=== PATIENT | female | born 1985 | race Caucasian/White ===

== ENCOUNTER 2016-11-16 18:39 | Emergency (ER) | payer MEDICARE, MEDICAID ==
[2016-11-16 18:49] VITALS: BP 155/84
[2016-11-16] MEDS ORDERED: Sodium Chloride 0.9% 10 ML Syringe FLUSH PRN (19:11)
[2016-11-16] MEDS ORDERED: Sodium Chloride 0.9% 1,000 ML IV ONE (19:11)
[2016-11-16] MEDS ORDERED: Albuterol 0.083% 2.5 MG/3 ML Neb Soln NEB ONE (19:11)
--- NOTE | 2016-11-16 20:06 | EDM.PDOC ---
ED HPI GENERAL MEDICAL PROBLEM - General Chief Complaint: Respiratory Problem Stated Complaint: SOB Time Seen by Provider: 11/16/16 20:02 Source of Information: Reports: Patient History Limitations: Reports: No Limitations - History of Present Illness INITIAL COMMENTS - FREE TEXT/NARRATIVE: 31-year-old female presents for evaluation and treatment of dizziness. Patient reports that she was at work earlier today. 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 She states after picking up the dishes she became very lightheaded and dizzy upon standing. She states later she attempted to tie her shoes but did not experience any dizziness at that time. She currently denies any dizziness but feels that if she were to get up she would experience some dizziness. Patient denies any syncope, nausea or vomiting. Patient reports she has been eating and drinking well. Nursing staff noticed that the patient had heavy breathing on arrival to the ER. She reports shortness of breath but states that this is no worse than normal. She was recently diagnosed with asthma and has been using symbicort and albuterol as needed. Last albuterol use was on . Patient denies any chest pain, fevers, sore throat, earaches. Patient does have a little bit of cough. Patient presented to the [facility] who was sent over to us due to her breathing. No leg pain or swelling to the legs. No recent travel. Patient denies any chance of . - Related Data Allergies Allergy/AdvReac Type Severity Reaction Status Date / Time cephalexin monohydrate Allergy Rash Verified 07/23/16 22:53 [From Keflex] doxycycline Allergy Rash Verified 07/23/16 22:53 levofloxacin [From Levaquin] Allergy Rash Verified 07/23/16 22:53 metronidazole [From Flagyl] Allergy Rash Verified 07/23/16 22:53 sulfamethoxazole Allergy Rash Verified 07/23/16 22:53 [From Septra] trimethoprim [From Septra] Allergy Rash Verified 07/23/16 22:53 Home Meds: Home Meds Esomeprazole Magnesium [Nexium] 40 mg PO DAILY 04/18/15 [History] [place] Carbonate 600 mg PO BID 04/18/15 [History] QUEtiapine [SEROquel] 400 mg PO BEDTIME 04/18/15 [History] Albuterol Sulfate [Proventil Hfa] 2 puff INH Q4H PRN 11/16/16 [History] Budesonide/Formoterol Fumarate [Symbicort 160-4.5 Mcg Inhaler] 2 puff INH BID [History] Losartan [Cozaar] 25 mg PO DAILY 11/16/16 [History] Montelukast [Singulair] 10 mg PO BEDTIME 11/16/16 [History] amLODIPine [Norvasc] 10 mg PO DAILY 11/16/16 [History] Past Medical History Cardiovascular History: Reports: Hypertension Gastrointestinal History: Reports: GERD Other OB/BYN History: on the Depo shot Musculoskeletal History: Reports: Arthritis Psychiatric History: Reports: Bipolar, Depression Endocrine/Metabolic History: Reports: Obesity/BMI 30+, Other (See Below) Oncologic (Cancer) History: Reports: Other (See Below) Other Oncologic History: anemia - Past Surgical History HEENT Surgical History: Reports: Oral Surgery, Tonsillectomy Social & Family History - Tobacco Use Smoking Status *Q: Former Smoker Used Tobacco, but Quit: Yes Month Tobacco Last Used: 8 years - Caffeine Use Caffeine Use: Reports: Tea - Recreational Drug Use Recreational Drug Use: No - Living Situation & Occupation Living situation: Reports: Single, Alone Occupation: Unemployed ED ROS GENERAL - Review of Systems Review Of Systems: See Below Constitutional: Denies: Fever HEENT: Denies: Ear Pain, Throat Pain Respiratory: Reports: Shortness of Breath (reports chronic, no worse than normal ), Cough Cardiovascular: Denies: Chest Pain GI/Abdominal: Denies: Nausea, Vomiting Neurological: Reports: Dizziness ED EXAM, GENERAL - Physical Exam Exam: See Below Exam Limited By: No Limitations General Appearance: Alert, WD/WN, No Apparent Distress, Obese Eye Exam: Bilateral Eye: PERRL Ears: Normal External Exam, Normal Canal, Hearing Grossly Normal, Normal TMs Nose: Normal Inspection Throat/Mouth: Normal Inspection, Normal Lips, Normal Voice, No Airway Compromise Neck: Normal Inspection Respiratory/Chest: No Respiratory Distress, No Accessory Muscle Use, Wheezing ( bilateral lower lung malone), Other (congested sounding ) Cardiovascular: Normal Peripheral Pulses, Regular Rate, Rhythm, No Murmur Peripheral Pulses: 2+: Radial (L), Radial (R) Neurological: Alert, Oriented, Normal Cognition Psychiatric: Normal Affect, Normal Mood Skin Exam: Warm, Dry, Normal Color Course - Vital Signs Last Recorded V/S: Last Vital Signs Temp 36.7 C 11/16/16 18:48 Pulse 93 11/16/16 18:48 Resp 20 11/16/16 18:48 BP 155/84 H 11/16/16 18:48 Pulse Ox 100 11/16/16 19:19 Orthostatic Blood Pressure [ 140/84 Standing] Orthostatic Blood Pressure [ 155/94 Sitting] Orthostatic Blood Pressure [ 141/86 Supine] - Orders/Labs/Meds Orders: Active Orders 24 hr Category Date Time Status Orthostatic Vital Signs [RC] ASDIRECTED Care 11/16/16 19:11 Active Peripheral IV Care [RC] . DIRECTED Care 11/16/16 19:11 Active RT Aerosol Therapy [RC] ASDIRECTED Care 11/16/16 19:12 Active Chest 2V [CR] Stat Exams 11/16/16 19:12 Taken Sodium Chloride 0.9% [Saline Flush] Med 11/16/16 19:11 Active 10 ml FLUSH ASDIRECTED PRN Peripheral IV Insertion Adult [OM.PC] Routine Oth 11/16/16 19:11 Ordered Medication Orders Sodium Chloride (Saline Flush) 10 ml FLUSH ASDIRECTED PRN PRN Reason: Keep Vein Open Last Admin: 11/16/16 19:27 Dose: 10 ml Labs: Laboratory Tests 11/16/16 11/16/16 Range/Units 19:20 19:20 WBC 15.20 H (3.98-10.04) K/mm3 RBC 4.54 (3.98-5.22) M/mm3 Hgb 12.1 (11.2-15.7) gm/L Hct 38.0 (34.1-44.9) % MCV 83.7 (79.4-94.8) fl MCH 26.7 (25.6-32.2) pg MCHC 31.8 L (32.2-35.5) g/dl RDW Std Deviation 44.1 (36.4-46.3) fL Plt Count 437 H (182-369) K/mm3 MPV 8.7 L (9.4-12.3) fl Neut % (Auto) 62.0 (34.0-71.1) % Lymph % (Auto) 26.2 (19.3-51.7) % Teller % (Auto) 7.7 (4.7-12.5) % Eos % (Auto) 3.0 (0.7-5.8) Baso % (Auto) 0.5 (0.1-1.2) % Neut # (Auto) 9.43 H (1.56-6.13) K/mm3 Lymph # (Auto) 3.98 H (1.18-3.74) K/mm3 Teller # (Auto) 1.17 H (0.24-0.36) K/mm3 Eos # (Auto) 0.46 H (0.04-0.36) K/mm3 Baso # (Auto) 0.07 (0.01-0.08) K/mm3 Sodium 141 (136-145) mEq/L Potassium 3.6 (3.5-5.1) mEq/L Chloride 105 (98-107) mEq/L Carbon Dioxide 27 (21-32) mEq/L Anion Gap 12.6 (5-15) BUN 6 L (7-18) mg/dL Creatinine 0.9 (0.55-1.02) mg/dL Est Cr Clr Drug Dosing 91.36 mL/min Estimated GFR (MDRD) > 60 (>60) mL/min BUN/Creatinine Ratio 6.7 L (14-18) Glucose 95 (74-106) mg/dL Calcium 9.0 (8.5-10.1) mg/dL Total Bilirubin 0.4 (0.2-1.0) mg/dL AST 12 L (15-37) U/L ALT 33 (14-59) U/L Alkaline Phosphatase 97 (46-116) U/L Total Protein 7.1 (6.4-8.2) g/dl Albumin 3.5 (3.4-5.0) g/dl Globulin 3.6 gm/dL Albumin/Globulin Ratio 1.0 (1-2) Meds: Medications Generic Name Dose Route Start Last Admin Trade Name Freq PRN Reason Stop Dose Admin Sodium Chloride 10 ml 11/16/16 19:11 11/16/16 19:27 Saline Flush FLUSH 10 ml ASDIRECTED PRN Administration Keep Vein Open Discontinued Medications Generic Name Dose Route Start Last Admin Trade Name Freq PRN Reason Stop Dose Admin Albuterol 2.5 mg 11/16/16 19:11 11/16/16 19:18 Proventil Neb Soln NEB 11/16/16 19:12 2.5 mg ONETIME ONE Administration Sodium Chloride 1,000 mls @ 999 mls/hr 11/16/16 19:11 11/16/16 19:27 Normal Saline IV 11/16/16 20:11 999 mls/hr ONETIME ONE Administration - Radiology Interpretation Free Text/Narrative:: chest 2 view shows no acute intrathoracic process. - Re-Assessments/Exams Free Text/Narrative Re-Assessment/Exam: 11/16/16 20:34 Labs have returned. White blood cell count is 15.20, hemoglobin 12.1 and platelets are 437. On review of patient's chart, Her previous white blood cell counts have also been high. Of note she is also on Symbicort. Sodium 141 potassium 3.6 and chloride 105. Anion gap of 12.6. Orthostatics were unremarkable. Reviewed the labs and chest x-ray with the patient. I feel that her dizziness she experienced earlier was likely due to a lack of blood flow from her sudden movements. I do not see any further testing at this time. Her wheezing has improved after the nebulizer treatment. Discharge instructions as documented. Departure - Departure Time of Disposition: 20:42 Disposition: Home, Self-Care 01 Condition: good Clinical Impression: Positional lightheadedness - Discharge Information Referrals: Sue Vera PA-C [Primary Care Provider] - Forms: ED Department Discharge, Return to Work/School Form Additional Instructions: Rest. Drink plenty of fluids. Follow-up with PCP as needed. Go slowly when getting up or standing up to avoid this in the future. Please return to the ER should your symptoms change or worsen. - My Orders Last 24 Hours: My Active Orders 11/16/16 19:11 Orthostatic Vital Signs [RC] ASDIRECTED Peripheral IV Care [RC] . DIRECTED Sodium Chloride 0.9% [Saline Flush] 10 ml FLUSH ASDIRECTED PRN Peripheral IV Insertion Adult [OM.PC] Routine 11/16/16 19:12 RT Aerosol Therapy [RC] ASDIRECTED Chest 2V [CR] Stat - Assessment/Plan Last 24 Hours: My Active Orders 11/16/16 19:11 Orthostatic Vital Signs [RC] ASDIRECTED Peripheral IV Care [RC] . DIRECTED Sodium Chloride 0.9% [Saline Flush] 10 ml FLUSH ASDIRECTED PRN Peripheral IV Insertion Adult [OM.PC] Routine 11/16/16 19:12 RT Aerosol Therapy [RC] ASDIRECTED Chest 2V [CR] Stat
--- NOTE | 2016-11-17 06:18 | CR ---
Chest: 2 views of the chest were obtained. Comparison: No previous chest x-ray. Heart size and mediastinum are within normal limits. Trachea is slightly deviated to the left side within the neck possibly due to enlarged thyroid gland. Lungs are clear. Bony structures are within normal limits for the patient's age. Impression: 1. Trachea deviated to the left side. Difficult to exclude enlarged thyroid gland. Please correlate with physical exam and if clinically needed thyroid ultrasound would be helpful. 2. Nothing acute is otherwise seen on 2 view chest x-ray. Diagnostic code #9
== END 2016-11-16 20:57 | disposition home or self-care (01) ==
LOC: SUPCPDRO 18:39 → JD.ED 18:39
DX: R42 Dizziness and giddiness (principal); I10 Essential (primary) hypertension; M19.90 Unspecified osteoarthritis, unspecified site; K21.9 Gastro-esophageal reflux disease without esophagitis; F31.9 Bipolar disorder, unspecified; E66.9 Obesity, unspecified; Z98.890 Other specified postprocedural states; Z87.891 Personal history of nicotine dependence; Z79.899 Other long term (current) drug therapy; Z88.1 Allergy status to other antibiotic agents
CPT/HCPCS: 36415; 71020; 80053; 85025; 94664; 96360; 99285; J7040; J7050; 99283

== ENCOUNTER 2017-05-03 13:37 | Emergency (ER) | payer MEDICARE, MEDICAID ==
[2017-05-03] MEDS ORDERED: Lactated Ringers 1,000 ML IV ONE (14:10)
--- NOTE | 2017-05-03 14:10 | EDM.PDOC ---
ED HPI GENERAL MEDICAL PROBLEM - General Chief Complaint: Neurological Problem Stated Complaint: DIZZINESS Time Seen by Provider: 05/03/17 13:58 - History of Present Illness INITIAL COMMENTS - FREE TEXT/NARRATIVE: 31-year-old female presents emergency room with dizziness. Patient states this started about a week and a half ago when she was started on Topamax. Patient was recently started on this as additional therapy for her bipolar illness. She is already on lithium. Patient states she's been drinking a lot of caffeinated beverages a lot of soda pop. Patient notices the dizziness mostly with change of position. This is not associated with any nausea vomiting or diarrhea. Patient has not had any burning or frequency with urination. Patient denies any fevers or chills and otherwise has no pain. - Related Data Allergies Allergy/AdvReac Type Severity Reaction Status Date / Time cephalexin monohydrate Allergy Rash Verified 07/23/16 22:53 [From Keflex] doxycycline Allergy Rash Verified 07/23/16 22:53 levofloxacin [From Levaquin] Allergy Rash Verified 07/23/16 22:53 metronidazole [From Flagyl] Allergy Rash Verified 07/23/16 22:53 sulfamethoxazole Allergy Rash Verified 07/23/16 22:53 [From Septra] trimethoprim [From Septra] Allergy Rash Verified 07/23/16 22:53 Home Meds: Home Meds Esomeprazole Magnesium [Nexium] 40 mg PO DAILY 04/18/15 [History] [place] Carbonate 600 mg PO BID 04/18/15 [History] QUEtiapine [SEROquel] 400 mg PO BEDTIME 04/18/15 [History] Albuterol Sulfate [Proventil Hfa] 2 puff INH Q4H PRN 11/16/16 [History] Budesonide/Formoterol Fumarate [Symbicort 160-4.5 Mcg Inhaler] 2 puff INH BID [History] Losartan [Cozaar] 25 mg PO DAILY 11/16/16 [History] Montelukast [Singulair] 10 mg PO BEDTIME 11/16/16 [History] amLODIPine [Norvasc] 10 mg PO DAILY 11/16/16 [History] Topiramate [Topamax] 10 mg PO DAILY 05/03/17 [History] Past Medical History Cardiovascular History: Reports: Hypertension Gastrointestinal History: Reports: GERD Other OB/BYN History: on the Depo shot Musculoskeletal History: Reports: Arthritis Psychiatric History: Reports: Bipolar, Depression Endocrine/Metabolic History: Reports: Obesity/BMI 30+, Other (See Below) Oncologic (Cancer) History: Reports: Other (See Below) Other Oncologic History: anemia - Past Surgical History HEENT Surgical History: Reports: Oral Surgery, Tonsillectomy Social & Family History - Tobacco Use Smoking Status *Q: Former Smoker Used Tobacco, but Quit: Yes Month Tobacco Last Used: 8 yrs - Caffeine Use Caffeine Use: Reports: Soda Other Caffeine Use: diet - Recreational Drug Use Recreational Drug Use: No - Living Situation & Occupation Living situation: Reports: Single, Alone Occupation: Unemployed ED ROS GENERAL - Review of Systems Review Of Systems: See Below Constitutional: Reports: No Symptoms HEENT: Reports: No Symptoms Respiratory: Reports: No Symptoms Cardiovascular: Reports: No Symptoms GI/Abdominal: Reports: Constipation : Reports: No Symptoms Neurological: Reports: Dizziness. Denies: No Symptoms, Headache ED EXAM, NEURO - Physical Exam Exam: See Below Exam Limited By: No Limitations General Appearance: Alert, No Apparent Distress Ears: Normal External Exam, Normal Canal, Hearing Grossly Normal, Normal TMs Nose: Normal Inspection, Normal Mucosa Throat/Mouth: Normal Inspection, Normal Lips, Normal Teeth, Normal Gums, Normal Oropharynx, Normal Voice, No Airway Compromise Head Exam: Atraumatic, Normocephalic Neck: Normal Inspection, Supple, Non-Tender, Full Range of Motion. No: Lymphadenopathy (L), Lymphadenopathy (R) Respiratory/Chest: No Respiratory Distress, Lungs Clear, Normal Breath Sounds Cardiovascular: Regular Rate, Rhythm, No Edema, No Murmur GI/Abdominal: Normal Bowel Sounds, Soft, Non-Tender Neurological: Alert, Normal Mood/Affect, Normal Dorsiflexion, CN II-XII Intact, No Motor/Sensory Deficits Course - Vital Signs Last Recorded V/S: Last Vital Signs Temp 36.4 C 05/03/17 13:48 Pulse 102 H 05/03/17 13:48 Resp 20 05/03/17 13:48 BP 117/86 05/03/17 13:48 Pulse Ox 100 05/03/17 13:48 - Orders/Labs/Meds Orders: Active Orders 24 hr Category Date Time Status LITHIUM [REF] Stat Lab 05/03/17 14:11 Ordered Labs: Laboratory Tests 05/03/17 Range/Units 14:11 Sodium 138 (136-145) mEq/L Potassium 3.4 L (3.5-5.1) mEq/L Chloride 103 (98-107) mEq/L Carbon Dioxide 24 (21-32) mEq/L Anion Gap 14.4 (5-15) BUN 11 (7-18) mg/dL Creatinine 0.9 (0.55-1.02) mg/dL Est Cr Clr Drug Dosing 94.65 mL/min Estimated GFR (MDRD) > 60 (>60) mL/min BUN/Creatinine Ratio 12.2 L (14-18) Glucose 99 (74-106) mg/dL Calcium 9.9 (8.5-10.1) mg/dL Meds: Medications Discontinued Medications Generic Name Dose Route Start Last Admin Trade Name Benjamin PRN Reason Stop Dose Admin Lactated Ringer's 1,000 mls @ 999 mls/hr 05/03/17 14:10 05/03/17 15:15 Ringers, Lactated IV 05/03/17 15:10 999 mls/hr .BOLUS ONE Administration - Re-Assessments/Exams Free Text/Narrative Re-Assessment/Exam: 05/03/17 16:13 [place] level pending patient is feeling much better after IV fluids patient will be discharged after this liter fluid has running completely. Discussed in detail her getting rid of her caffeinated beverages and see if this helps she seems to correlate his dizziness was starting the Topamax she agrees to follow- up with her regular provider and discuss the benefits of continuing versus discontinuing the Topamax Departure - Departure Time of Disposition: 16:09 Disposition: Home, Self-Care 01 Clinical Impression: Dizziness, Dehydration - Discharge Information Referrals: Sue Vera PA-C [Primary Care Provider] - Forms: ED Department Discharge Additional Instructions: Return to the emergency room with any questions problems worsening symptoms. Follow-up he regular provider early next week for follow-up on your pending lithium level discuss Topamax therapy and if this should be continued. Discontinue caffeinated beverages and soda pop push lots of fluids such as water. - My Orders Last 24 Hours: My Active Orders 05/03/17 14:11 LITHIUM [REF] Stat - Assessment/Plan Last 24 Hours: My Active Orders 05/03/17 14:11 LITHIUM [REF] Stat
[2017-05-03 16:26] VITALS: BP 141/85
== END 2017-05-03 16:25 | disposition home or self-care (01) ==
LOC: JD.ED 13:37
DX: E86.0 Dehydration (principal); K21.9 Gastro-esophageal reflux disease without esophagitis; I10 Essential (primary) hypertension; F32.9 Major depressive disorder, single episode, unspecified; Z87.891 Personal history of nicotine dependence; Z79.899 Other long term (current) drug therapy; Z88.1 Allergy status to other antibiotic agents; Z88.2 Allergy status to sulfonamides
CPT/HCPCS: 36415; 80048; 80178; 96360; 99284; J7120; 99283

== ENCOUNTER 2017-08-29 21:25 | Emergency (ER) | payer MEDICARE, MEDICAID ==
--- NOTE | 2017-08-29 22:41 | EDM.PDOC ---
ED HPI GENERAL MEDICAL PROBLEM - General Chief Complaint: Neck Problem Stated Complaint: THYROID TAKEN OUT TUESDAY TINGLING ON FACE Time Seen by Provider: 08/29/17 21:37 Source of Information: Reports: Patient History Limitations: Reports: No Limitations - History of Present Illness INITIAL COMMENTS - FREE TEXT/NARRATIVE: 32 y/o F with perioral tingling. Started about 3 hours ago while at rest. She had thyroidectomy 1 week ago at [facility] in [place]. She is on levothyroxine. Compliant with mesd. Started having perioral tingling and came in for eval of this. No additional paresthesias. Otherwise feels fine. Minimal neck pain. No fever. No cough/shortness of breath. No vomiting or diarrhea or abdominal pain. - Related Data Allergies Allergy/AdvReac Type Severity Reaction Status Date / Time cephalexin monohydrate Allergy Rash Verified 08/29/17 21:42 [From Keflex] doxycycline Allergy Rash Verified 08/29/17 21:42 levofloxacin [From Levaquin] Allergy Rash Verified 08/29/17 21:42 metronidazole [From Flagyl] Allergy Rash Verified 08/29/17 21:42 sulfamethoxazole Allergy Rash Verified 08/29/17 21:42 [From Septra] trimethoprim [From Septra] Allergy Rash Verified 08/29/17 21:42 Home Meds: Home Meds Esomeprazole Magnesium [Nexium] 40 mg PO DAILY 04/18/15 [History] [place] Carbonate 600 mg PO BID 04/18/15 [History] QUEtiapine [SEROquel] 400 mg PO BEDTIME 04/18/15 [History] Losartan [Cozaar] 50 mg PO DAILY 11/16/16 [History] amLODIPine [Norvasc] 10 mg PO DAILY 11/16/16 [History] Topiramate [Topamax] 100 mg PO DAILY 05/03/17 [History] Acetaminophen/HYDROcodone [[place] 325-5 MG] 1 tab PO ASDIRECTED 08/29/17 [History ] Etonogestrel [Nexplanon] 68 mg SQ ASDIRECTED 08/29/17 [History] Famotidine [Pepcid] 20 mg PO BEDTIME 08/29/17 [History] Levothyroxine 150 mcg PO DAILY 08/29/17 [History] Past Medical History Cardiovascular History: Reports: Hypertension Gastrointestinal History: Reports: GERD Other OB/BYN History: on the Depo shot Musculoskeletal History: Reports: Arthritis Psychiatric History: Reports: Bipolar, Depression Endocrine/Metabolic History: Reports: Hypothyroidism, Obesity/BMI 30+, Other ( See Below) Oncologic (Cancer) History: Reports: Other (See Below) Other Oncologic History: anemia - Past Surgical History HEENT Surgical History: Reports: Oral Surgery, Tonsillectomy Endocrine Surgical History: Reports: Thyroidectomy Social & Family History - Tobacco Use Smoking Status *Q: Never Smoker Used Tobacco, but Quit: Yes Month/Year Tobacco Last Used: 8 yrs - Caffeine Use Caffeine Use: Reports: Soda Other Caffeine Use: diet - Recreational Drug Use Recreational Drug Use: No - Living Situation & Occupation Living situation: Reports: Single, Alone Occupation: Unemployed ED ROS GENERAL - Review of Systems Review Of Systems: See Below Constitutional: Denies: Fever HEENT: Reports: No Symptoms Respiratory: Denies: Shortness of Breath Cardiovascular: Denies: Chest Pain GI/Abdominal: Denies: Abdominal Pain : Reports: No Symptoms Neurological: Reports: Paresthesia, Tingling. Denies: Weakness ED EXAM, UPPER BACK/NECK PAIN - Physical Exam Exam: See Below Exam Limited By: No Limitations General Appearance: Alert, WD/WN, No Apparent Distress Eye Exam: Bilateral Eye: Normal Inspection, PERRL Ears Exam: Normal External Exam Nose Exam: Normal Inspection Throat/Mouth Exam: Normal Inspection, Normal Voice, No Airway Compromise Head Exam: Atraumatic, Normocephalic Neck Exam: Full Range of Motion, Other (lower anterior neck incision is clean/ dry/intact. minimal surrounding erythema and tenderness. no fluctuance. 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 As Tested, No Motor/Sensory Deficits, Alert, Normal Mood/Affect, Oriented x 3 Psychiatric: Normal Affect, Normal Mood Skin Exam: Normal Color, Warm/Dry Course - Vital Signs Last Recorded V/S: Last Vital Signs Temp 36.1 C 08/29/17 22:01 Pulse 84 08/30/17 00:04 Resp 20 08/29/17 22:01 BP 139/100 H 08/30/17 00:04 Pulse Ox 100 08/29/17 22:01 - Orders/Labs/Meds Orders: Active Orders 24 hr Category Date Time Status CALCIUM, IONIZED [REF] Stat Lab 08/29/17 22:40 Received LITHIUM [REF] Stat Lab 08/29/17 22:40 Received Labs: Laboratory Tests 08/29/17 Range/Units 22:40 Sodium 137 (136-145) mEq/L Potassium 3.2 L (3.5-5.1) mEq/L Chloride 102 (98-107) mEq/L Carbon Dioxide 23 (21-32) mEq/L Anion Gap 15.2 H (5-15) BUN 5 L (7-18) mg/dL Creatinine 1.1 H (0.55-1.02) mg/dL Est Cr Clr Drug Dosing 19.98 mL/min Estimated GFR (MDRD) 58 (>60) mL/min BUN/Creatinine Ratio 4.5 L (14-18) Glucose 103 (74-106) mg/dL Calcium 8.8 (8.5-10.1) mg/dL Magnesium 1.9 (1.8-2.4) mg/dl Total Bilirubin 0.3 (0.2-1.0) mg/dL AST 18 (15-37) U/L ALT 65 H (14-59) U/L Alkaline Phosphatase 124 H (46-116) U/L Total Protein 7.6 (6.4-8.2) g/dl Albumin 3.4 (3.4-5.0) g/dl Globulin 4.2 gm/dL Albumin/Globulin Ratio 0.8 L (1-2) Free T4 0.76 (0.76-1.46) ng/dL TSH 3rd Generation 9.063 H (0.358-3.74) uIU/mL Meds: Medications Discontinued Medications Generic Name Dose Route Start Last Admin Trade Name Freq PRN Reason Stop Dose Admin Potassium Chloride 40 meq 08/29/17 23:55 08/30/17 00:09 Klor-Con M20 PO 08/29/17 23:56 40 meq ONETIME ONE Administration - Re-Assessments/Exams Free Text/Narrative Re-Assessment/Exam: 08/30/17 00:23 Total calcium is normal at 8.8. Ionized calcium pending, but lab notifies us that it will take some time for this to return. K+ mildly low at 3.2, replaced orally. TSH high but free T4 normal. She has follow up with her surgeon scheduled for 3 days from now. Other than bilateral face numbness, she has no additional paresthesias or neurological symptoms. Given benign exam and reassuring labs will discharge home. Acequia level still pending as well - patient should receive a phone call if this is significantly abnormal. Departure - Departure Time of Disposition: 00:16 Disposition: Home, Self-Care 01 Clinical Impression: Paresthesias - Discharge Information Instructions: Paresthesia Referrals: Angie Gleason NP [Primary Care Provider] - Forms: ED Department Discharge Additional Instructions: 1. Your blood work here today looks OK. Your calcium is normal. Your thyroid studies look ok. 2. Follow up with your regular doctor if numbness/tingling continues. 3. Follow up with your surgeon as planned 4. Return to the ED for any new concerning symptoms, such as worsening numbness /tingling symptoms or other concerning symptoms - My Orders Last 24 Hours: My Active Orders 08/29/17 22:40 CALCIUM, IONIZED [REF] Stat LITHIUM [REF] Stat - Assessment/Plan Last 24 Hours: My Active Orders 08/29/17 22:40 CALCIUM, IONIZED [REF] Stat LITHIUM [REF] Stat
[2017-08-29] MEDS ORDERED: Potassium Chloride 20 MEQ Tab.ER PO ONE (23:55)
[2017-08-30 00:04] VITALS: BP 139/100
== END 2017-08-30 00:24 | disposition home or self-care (01) ==
LOC: JD.ED 21:25
DX: R20.2 Paresthesia of skin (principal); I10 Essential (primary) hypertension; E03.9 Hypothyroidism, unspecified; Z88.1 Allergy status to other antibiotic agents; Z88.2 Allergy status to sulfonamides; Z79.899 Other long term (current) drug therapy; Z87.891 Personal history of nicotine dependence
CPT/HCPCS: 36415; 80053; 80178; 82330; 83735; 84439; 84443; 99284; A9270; 99283

== ENCOUNTER 2017-10-09 19:36 | Emergency (ER) | payer MEDICARE, MEDICAID ==
[2017-10-09 19:52] VITALS: BP 138/101
[2017-10-09] MEDS ORDERED: Sodium Chloride 0.9% 1,000 ML IV ONE (20:16)
[2017-10-09] MEDS ORDERED: Sodium Chloride 0.9% 10 ML Syringe FLUSH PRN (20:16)
--- NOTE | 2017-10-09 21:06 | EDM.PDOC ---
ED HPI GENERAL MEDICAL PROBLEM - General Chief Complaint: Neurological Problem Stated Complaint: DIZZY Time Seen by Provider: 10/09/17 20:13 Source of Information: Reports: Patient History Limitations: Reports: No Limitations - History of Present Illness INITIAL COMMENTS - FREE TEXT/NARRATIVE: 32-year-old female presents for evaluation and treatment of dizziness and fatigue. Patient reports that the dizziness started earlier this afternoon. At that time she was watching TV. Reports that she is only experiencing the dizziness when she is getting up. No current dizziness. No recent cough or cold symptoms. No ear pain, headaches, nausea, vomiting, numbness or tingling. She also reports increased fatigue. States that she dozed off after eating lunch this morning. This sounds more of a chronic issue. She is scheduled to have a sleep study November 01. She's had 2 sleep studies in the past which she reports were normal. Patient also states that she has numbness and tingling to her face that she occasionally gets from low potassium. She does not have any of this today. Her primary care provider is Angie Gleason. - Related Data Allergies Allergy/AdvReac Type Severity Reaction Status Date / Time cephalexin monohydrate Allergy Rash Verified 10/09/17 19:52 [From Keflex] doxycycline Allergy Rash Verified 10/09/17 19:52 levofloxacin [From Levaquin] Allergy Rash Verified 10/09/17 19:52 metronidazole [From Flagyl] Allergy Rash Verified 10/09/17 19:52 sulfamethoxazole Allergy Rash Verified 10/09/17 19:52 [From Septra] trimethoprim [From Septra] Allergy Rash Verified 10/09/17 19:52 Home Meds: Home Meds Esomeprazole Magnesium [Nexium] 40 mg PO DAILY 04/18/15 [History] [place] Carbonate 600 mg PO BID 04/18/15 [History] QUEtiapine [SEROquel] 400 mg PO BEDTIME 04/18/15 [History] Losartan [Cozaar] 50 mg PO DAILY 11/16/16 [History] amLODIPine [Norvasc] 10 mg PO DAILY 11/16/16 [History] Topiramate [Topamax] 100 mg PO DAILY 05/03/17 [History] Etonogestrel [Nexplanon] 68 mg SQ ASDIRECTED 08/29/17 [History] Famotidine [Pepcid] 20 mg PO BEDTIME 08/29/17 [History] Thyroid [[place] Thyroid] 200 mcg PO DAILY 10/09/17 [History] Past Medical History Cardiovascular History: Reports: Hypertension Respiratory History: Reports: Sleep Apnea Gastrointestinal History: Reports: GERD Other OB/BYN History: on the Depo shot Musculoskeletal History: Reports: Arthritis Psychiatric History: Reports: Anxiety, Bipolar, Depression Endocrine/Metabolic History: Reports: Hypothyroidism, Obesity/BMI 30+, Other ( See Below) Oncologic (Cancer) History: Reports: Other (See Below) Other Oncologic History: anemia - Past Surgical History HEENT Surgical History: Reports: Oral Surgery, Tonsillectomy Endocrine Surgical History: Reports: Thyroidectomy Social & Family History - Family History Family Medical History: Noncontributory - Tobacco Use Smoking Status *Q: Former Smoker Used Tobacco, but Quit: No Month/Year Tobacco Last Used: 8 yrs - Caffeine Use Caffeine Use: Reports: Coffee, Soda Other Caffeine Use: drinks 2 liters of soda a day - Recreational Drug Use Recreational Drug Use: No - Living Situation & Occupation Living situation: Reports: Single, Alone Occupation: Unemployed ED ROS GENERAL - Review of Systems Review Of Systems: See Below Constitutional: Reports: Fatigue. Denies: Fever HEENT: Denies: Ear Pain, Throat Pain Respiratory: Denies: Shortness of Breath, Cough GI/Abdominal: Denies: Nausea, Vomiting Neurological: Reports: Dizziness. Denies: Headache, Numbness, Tingling ED EXAM, DIZZINESS - Physical Exam Exam: See Below Exam Limited By: No Limitations General Appearance: Alert, WD/WN, No Apparent Distress, Obese Eye Exam: Bilateral Eye: EOMI, Normal Inspection, PERRL Ears: Normal External Exam, Normal Canal, Hearing Grossly Normal, Normal TMs Nose: Normal Inspection Throat/Mouth: Normal Inspection, Normal Lips, Normal Voice, No Airway Compromise Head Exam: Atraumatic, Normocephalic Neck: Normal Inspection Respiratory/Chest: No Respiratory Distress, Lungs Clear, Normal Breath Sounds Cardiovascular: Normal Peripheral Pulses, Regular Rate, Rhythm, No Murmur Neurological: Alert, Normal Mood/Affect, Normal Dorsiflexion, CN II-XII Intact, Normal Plantar Flexion, Normal Gait, Other (Hand Wood Sander strength 5 out of 5 bilaterally , dorsiflexion and plantar flexion 5 out of 5 bilaterally.) Psychiatric: Normal Affect, Normal Mood Skin Exam: Warm, Dry, Normal Color Course - Vital Signs Last Recorded V/S: Last Vital Signs Temp 36.9 C 10/09/17 19:40 Pulse 99 10/09/17 19:40 Resp 24 H 10/09/17 19:40 BP 138/101 H 10/09/17 19:40 Pulse Ox 89 L 10/09/17 19:40 Orthostatic Blood Pressure [ 139/95 Standing] Orthostatic Blood Pressure [ 129/95 Sitting] Orthostatic Blood Pressure [ 136/85 Supine] - Orders/Labs/Meds Orders: Active Orders 24 hr Category Date Time Status Orthostatic Vital Signs [RC] ASDIRECTED Care 10/09/17 20:16 Active Peripheral IV Care [RC] . DIRECTED Care 10/09/17 20:16 Active UA W/MICROSCOPIC [URIN] Stat Lab 10/09/17 21:03 Ordered Peripheral IV Insertion Adult [OM.PC] Routine Oth 10/09/17 20:15 Ordered Labs: Laboratory Tests 10/09/17 10/09/17 Range/Units 20:40 21:03 Sodium 137 (136-145) mEq/L Potassium 3.4 L (3.5-5.1) mEq/L Chloride 105 (98-107) mEq/L Carbon Dioxide 27 (21-32) mEq/L Anion Gap 8.4 (5-15) BUN 8 (7-18) mg/dL Creatinine 1.1 H (0.55-1.02) mg/dL Est Cr Clr Drug Dosing 71.40 mL/min Estimated GFR (MDRD) 58 (>60) mL/min BUN/Creatinine Ratio 7.3 L (14-18) Glucose 104 (74-106) mg/dL Calcium 9.7 (8.5-10.1) mg/dL Magnesium 2.2 (1.8-2.4) mg/dl Total Bilirubin 0.4 (0.2-1.0) mg/dL AST 20 (15-37) U/L ALT 48 (14-59) U/L Alkaline Phosphatase 108 (46-116) U/L Total Protein 6.9 (6.4-8.2) g/dl Albumin 3.5 (3.4-5.0) g/dl Globulin 3.4 gm/dL Albumin/Globulin Ratio 1.0 (1-2) Free T4 0.92 (0.76-1.46) ng/dL TSH 3rd Generation 1.238 (0.358-3.74) uIU/mL Urine Color Yellow (Yellow) Urine Appearance Clear (Clear) Urine pH 7.0 (5.0-8.0) Ur Specific [place] 1.015 (1.005-1.030) Urine Protein Negative (Negative) Urine Glucose (UA) Negative (Negative) Urine Ketones Negative (Negative) Urine Occult Blood Trace-intact H (Negative) Urine Nitrite Negative (Negative) Urine Bilirubin Negative (Negative) Urine Urobilinogen 0.2 (0.2-1.0) Ur Leukocyte Esterase Negative (Negative) Urine RBC 0-5 (0-5) /hpf Urine WBC 0-5 (0-5) /hpf Ur Epithelial Cells 5-10 H (0-5) /hpf Urine Bacteria Few (FEW) /hpf Urine Mucus Few (FEW) /hpf Meds: Medications Discontinued Medications Generic Name Dose Route Start Last Admin Trade Name Freq PRN Reason Stop Dose Admin Sodium Chloride 1,000 mls @ 999 mls/hr 10/09/17 20:16 10/09/17 20:27 Normal Saline IV 10/09/17 21:16 Not Given ONETIME ONE Sodium Chloride 10 ml 10/09/17 20:16 Saline Flush FLUSH ASDIRECTED PRN Keep Vein Open - Re-Assessments/Exams Free Text/Narrative Re-Assessment/Exam: 10/09/17 41:47 I reviewed the labs with the patient. She is not dehydrated that would require IV fluids at this time. Encouraged her to follow-up with her primary care provider. Discharge instructions as documented. Departure - Departure Time of Disposition: 21:48 Disposition: Home, Self-Care 01 Condition: Fair Clinical Impression: Positional lightheadedness - Discharge Information Instructions: Dizziness, [id number] Referrals: Angie Gleason NP [Primary Care Provider] - Forms: ED Department Discharge Additional Instructions: May take [id number] meclizine or Antivert as needed for dizziness. go home and rest. Make sure drinking plenty of fluids. Follow-up with your primary care provider if your symptoms persist. Please return to the ER for symptoms change or worsen. - My Orders Last 24 Hours: My Active Orders 10/09/17 20:15 Peripheral IV Insertion Adult [OM.PC] Routine 10/09/17 20:16 Orthostatic Vital Signs [RC] ASDIRECTED Peripheral IV Care [RC] . DIRECTED 10/09/17 21:03 UA W/MICROSCOPIC [URIN] Stat - Assessment/Plan Last 24 Hours: My Active Orders 10/09/17 20:15 Peripheral IV Insertion Adult [OM.PC] Routine 10/09/17 20:16 Orthostatic Vital Signs [RC] ASDIRECTED Peripheral IV Care [RC] . DIRECTED 10/09/17 21:03 UA W/MICROSCOPIC [URIN] Stat
== END 2017-10-09 21:50 | disposition home or self-care (01) ==
LOC: JD.ED 19:36
DX: H81.10 Benign paroxysmal vertigo, unspecified ear (principal); I10 Essential (primary) hypertension; K21.9 Gastro-esophageal reflux disease without esophagitis; F31.9 Bipolar disorder, unspecified; F41.9 Anxiety disorder, unspecified; E03.9 Hypothyroidism, unspecified; E66.9 Obesity, unspecified; Z88.8 Allergy status to other drugs, medicaments and biological substances; Z88.2 Allergy status to sulfonamides; Z79.899 Other long term (current) drug therapy; Z87.891 Personal history of nicotine dependence; Z68.43 Body mass index [BMI] 50.0-59.9, adult
CPT/HCPCS: 36415; 80053; 81001; 83735; 84439; 84443; 99283; 99284

== ENCOUNTER 2017-11-16 21:42 | Emergency (ER) | payer MEDICARE, MEDICAID ==
[2017-11-16 21:52] VITALS: BP 146/89
--- NOTE | 2017-11-16 21:59 | EDM.PDOC ---
ED HPI GENERAL MEDICAL PROBLEM - General Chief Complaint: Neurological Problem Stated Complaint: DIZZY Time Seen by Provider: 11/16/17 21:59 Source of Information: Reports: Patient History Limitations: Reports: No Limitations - History of Present Illness INITIAL COMMENTS - FREE TEXT/NARRATIVE: 32-year-old female presents to the ED for evaluation of dizziness or at least and offkilter type of feeling. She reports that she was in the grocery store and moving things from the shelf to the cart when she started to feel off balance as if she might tip over backwards. She felt lightheaded like she could pass out. She really will not clarify that she had a spinning sensation toward vertigo symptoms. She went said down for. Of time had a drink of water and then slowly started to improve. Note the patient is not known to be diabetic but she is definitely obese and overweight. Recently diagnosed with sleep apnea syndrome but is yet to receive her her mask and equipment after gets approved by Medicare. No recent changes to medications. Her diet remains quite poor. Took a lot of fluids today but mostly water. She may therefore have a dilutional hyponatremia. Is weak. No headache or nausea at this time but did feel nauseated a little bit initially. She does admit that she was feeling more stressed today than usual. Onset: Today Onset Date: 11/16/17 Onset Time: 20:45 Duration: Minutes: Location: Reports: Generalized Quality: Reports: Other (Feeling of off balance and dizziness like she might faint.) Severity: Moderate (Dizzy) Improves with: Reports: Rest Worsens with: Reports: Other (Nothing seems to make it better or worse but it laying down at present she feels much better) Context: Denies: Activity, Exercise, Lifting, Sick Contact, Trauma, Other Associated Symptoms: Denies: No Other Symptoms, Confusion, Chest Pain, Cough, cough w sputum, Diaphoresis, Fever/Chills, Headaches, Loss of Appetite, Malaise , Shortness of Breath, Syncope Treatments PACKAGE CHECKER: Reports: Other (see below) (None.) - Related Data Allergies Allergy/AdvReac Type Severity Reaction Status Date / Time cephalexin monohydrate Allergy Rash Verified 11/16/17 21:52 [From Keflex] doxycycline Allergy Rash Verified 11/16/17 21:52 levofloxacin [From Levaquin] Allergy Rash Verified 11/16/17 21:52 metronidazole [From Flagyl] Allergy Rash Verified 11/16/17 21:52 sulfamethoxazole Allergy Rash Verified 11/16/17 21:52 [From Septra] trimethoprim [From Septra] Allergy Rash Verified 11/16/17 21:52 Home Meds: Home Meds Esomeprazole Magnesium [Nexium] 40 mg PO DAILY 04/18/15 [History] [place] Carbonate 600 mg PO BID 04/18/15 [History] QUEtiapine [SEROquel] 400 mg PO BEDTIME 04/18/15 [History] Losartan [Cozaar] 50 mg PO DAILY 11/16/16 [History] amLODIPine [Norvasc] 10 mg PO DAILY 11/16/16 [History] Etonogestrel [Nexplanon] 68 mg SQ ASDIRECTED 08/29/17 [History] Famotidine [Pepcid] 20 mg PO BEDTIME 08/29/17 [History] Levothyroxine [Synthroid] 50 mcg PO ACBREAKFAST 11/16/17 [History] Past Medical History Cardiovascular History: Reports: Hypertension Respiratory History: Reports: Sleep Apnea Gastrointestinal History: Reports: GERD Other OB/BYN History: on the Depo shot Musculoskeletal History: Reports: Arthritis Psychiatric History: Reports: Anxiety, Bipolar, Depression Endocrine/Metabolic History: Reports: Hypothyroidism, Obesity/BMI 30+, Other ( See Below) Oncologic (Cancer) History: Reports: Other (See Below) Other Oncologic History: anemia - Past Surgical History HEENT Surgical History: Reports: Oral Surgery, Tonsillectomy Endocrine Surgical History: Reports: Thyroidectomy Social & Family History - Family History Family Medical History: Noncontributory - Tobacco Use Smoking Status *Q: Never Smoker - Caffeine Use Caffeine Use: Reports: Coffee, Soda Other Caffeine Use: drinks 2 liters of soda a day - Recreational Drug Use Recreational Drug Use: No - Living Situation & Occupation Living situation: Reports: Single, Alone Occupation: Unemployed ED ROS GENERAL - Review of Systems Review Of Systems: See Below Constitutional: Reports: Weakness, Fatigue, Decreased Appetite. Denies: Fever, Chills, Malaise HEENT: Denies: Vertigo, Vision Change Respiratory: Reports: Shortness of Breath, Other (On minimal exertion. He diagnosed sleep apnea syndrome.) Cardiovascular: Reports: Blood Pressure Problem, Dyspnea on Exertion ( Mild edema both lower extremities), Edema (Quite lightheaded and dizzy tonight.), Lightheadedness. Denies: Chest Pain, Claudication, Orthopnea (Tends to run high.), Palpitations ( chronically. ) Endocrine: Reports: Fatigue GI/Abdominal: Reports: No Symptoms : Reports: Frequency Musculoskeletal: Reports: Back Pain, Joint Pain Skin: Reports: No Symptoms (Knees and hips at times.) Neurological: Reports: Dizziness (See history of present illness), Difficulty Walking. Denies: Trouble Speaking, Weakness (Transiently.), Change in Speech Psychiatric: Reports: Anxiety, Depression, Other (States she is under more stress lately.) Hematologic/Lymphatic: Reports: No Symptoms Immunologic: Reports: No Symptoms ED EXAM, DIZZINESS - Physical Exam Exam: See Below Exam Limited By: No Limitations General Appearance: Alert, WD/WN, No Apparent Distress Eye Exam: Bilateral Eye: Normal Inspection, PERRL Ears: Normal TMs Throat/Mouth: Normal Inspection, Normal Lips, Normal Oropharynx Head Exam: Atraumatic, Normocephalic Neck: Normal Inspection, Supple, Non-Tender, Full Range of Motion. No: Lymphadenopathy (L), Lymphadenopathy (R) Respiratory/Chest: No Respiratory Distress, Lungs Clear, Normal Breath Sounds, No Accessory Muscle Use, Respiratory Distress (Mild tachypnea initially with respiratory to 22 but it settled to 16/m after she was in bed for a bit.) Cardiovascular: Normal Peripheral Pulses, Regular Rate, Rhythm, No Edema, No Murmur, No Rub GI/Abdominal: Soft, Non-Tender, No Organomegaly, Other (Abdominal girth limits ability to palpate solid organs.) Course - Vital Signs Last Recorded V/S: Last Vital Signs Temp 36.9 C 11/16/17 21:48 Pulse 88 11/16/17 21:48 Resp 22 H 11/16/17 21:48 BP 146/89 H 11/16/17 21:48 Pulse Ox 97 11/16/17 21:48 - Orders/Labs/Meds Labs: Laboratory Tests 11/16/17 11/16/17 Range/Units 22:15 22:15 WBC 17.96 H (3.98-10.04) K/mm3 RBC 4.36 (3.98-5.22) M/mm3 Hgb 12.3 (11.2-15.7) gm/L Hct 38.5 (34.1-44.9) % MCV 88.3 (79.4-94.8) fl MCH 28.2 (25.6-32.2) pg MCHC 31.9 L (32.2-35.5) g/dl RDW Std Deviation 44.4 (36.4-46.3) fL Plt Count 471 H (182-369) K/mm3 MPV 8.7 L (9.4-12.3) fl Neutrophils % (Manual) 56 (40-60) % Band Neutrophils % 0 (0-10) % Lymphocytes % (Manual) 35 (20-40) % Atypical Lymphs % 0 % Monocytes % (Manual) 4 (2-10) % Eosinophils % (Manual) 4 (0.7-5.8) % Basophils % (Manual) 1 (0.1-1.2) Toxic Granulation 1+ slight Platelet Estimate Increased Plt Morphology Comment Normal RBC Morph Comment Normal Sodium 140 (136-145) mEq/L Potassium 3.8 (3.5-5.1) mEq/L Chloride 105 (98-107) mEq/L Carbon Dioxide 24 (21-32) mEq/L Anion Gap 14.8 (5-15) BUN 8 (7-18) mg/dL Creatinine 1.1 H (0.55-1.02) mg/dL Est Cr Clr Drug Dosing 74.07 mL/min Estimated GFR (MDRD) 58 (>60) mL/min BUN/Creatinine Ratio 7.3 L (14-18) Glucose 104 (74-106) mg/dL Calcium 9.6 (8.5-10.1) mg/dL Magnesium 2.2 (1.8-2.4) mg/dl Total Bilirubin 0.4 (0.2-1.0) mg/dL AST 24 (15-37) U/L ALT 55 (14-59) U/L Alkaline Phosphatase 103 (46-116) U/L C-Reactive Protein 0.2 (<1.0) mg/dL Total Protein 7.4 (6.4-8.2) g/dl Albumin 3.7 (3.4-5.0) g/dl Globulin 3.7 gm/dL Albumin/Globulin Ratio 1.0 (1-2) - Radiology Interpretation Free Text/Narrative:: 32-year-old female presents the ED for evaluation of feeling dizzy and slightly off kilter. Cannot identify for sure that there is any true vertigo component. Question whether she may have a metabolic abnormality such as hyponatremia due to the nature of her medications and her diet. Examination is completely normal particular a neuro exam. Heart rate was 88 in sinus. Plan routine labs to be done. - Re-Assessments/Exams Free Text/Narrative Re-Assessment/Exam: 11/16/17 23:03 Labs are back and reveal an elevated white count at 17.96. Differential is normal with 56% neutrophils and no bands. Hemoglobin is 12.3 with hematocrit of 38.5. Platelet count is elevated at 471,000. Sodium is 140 with a potassium of 3.8. Chloride is 105 with a bicarbonate of 24. And a gap is 14.8. BUN is 8 with a creatinine of 1.1. Far as estimated to be 58. Glucose is 104. Calcium 9.6. Magnesium 2.2. Liver function normal. C-reactive protein is less than 0.2. 11/16/17 23:22 patient was reexamined and I could still find no abnormalities. I have no reason to account for elevated white count at 18,000 she is certainly afebrile. It may be stress response since is a normal differential. However her gait is normal. To be discharged to home to resume current medications. Advise plenty of fluids particular with the hot weather when she's not able to sweat because of the Seroquel effect. Follow-up if similar symptoms continue. Departure - Departure Time of Disposition: 23:20 Disposition: Home, Self-Care 01 Condition: Fair Clinical Impression: Dizziness, nonspecific - Discharge Information Referrals: Angie Gleason NP [Primary Care Provider] - Forms: ED Department Discharge Additional Instructions: Evaluation in the emergency department tonight in regards to development of dizziness and off-balance sensation well in the grocery store tonight. Bleed investigations reveal no abnormalities in your bloodstream that would account for this effect. No signs of infection are evident. Blood sugar was 104 with no signs of diabetes at this time. Fluoride did not come up with any specific reason for your dizzy episodes to occur tonight. May be perhaps due to fluid shifts and depends a bit on how much she been eating today in terms of blood sugar levels etc. Case is also due lower your blood pressure at times. Especially when it's hot outside you are not able to sweat normally due to the effect of your medications. At this time suggest a small meal before bed and plenty of fluids for the next few days such as Gatorade or Powerade. Personal doctor if any further problems occur.
== END 2017-11-16 23:31 | disposition home or self-care (01) ==
LOC: JD.ED 21:42
DX: R42 Dizziness and giddiness (principal); I10 Essential (primary) hypertension; E66.9 Obesity, unspecified; Z88.8 Allergy status to other drugs, medicaments and biological substances; Z88.2 Allergy status to sulfonamides; Z88.1 Allergy status to other antibiotic agents
CPT/HCPCS: 36415; 80053; 83735; 85007; 85027; 86140; 99284

== ENCOUNTER 2017-12-20 21:05 | Emergency (ER) | payer MEDICARE, MEDICAID ==
[2017-12-20 21:18] VITALS: BP 143/91
--- NOTE | 2017-12-20 21:31 | EDM.PDOC ---
ED HPI GENERAL MEDICAL PROBLEM - General Chief Complaint: Abdominal Pain Stated Complaint: DIZZY LEFT SIDE PAIN Time Seen by Provider: 12/20/17 21:31 - History of Present Illness INITIAL COMMENTS - FREE TEXT/NARRATIVE: 32-year-old female returns emergency room with continued dizziness. This is been ongoing problem for her she has not used any meclizine at home and it does not sound like she's had significant follow-up at the clinic for this. She's been seen multiple times here because of the dizziness is not well understood. Her graft she has a hard time quantifying with dizziness lightheadedness she can 't really say that everything spinning around her she spending within it. Patient has had multiple workups in the ER for the same complaint had been unrevealing as to the cause of her dizziness. Patient also complaining of some left upper abdominal discomfort at her ribs. On the right side. This is not associated with any fevers chills no nausea vomiting constipation or diarrhea. She has not tried any Tylenol or Motrin Left Upper Abdominal Pain Score (Numeric/FACES): 5 - Related Data Allergies Allergy/AdvReac Type Severity Reaction Status Date / Time cephalexin monohydrate Allergy Rash Verified 12/20/17 21:15 [From Keflex] doxycycline Allergy Rash Verified 12/20/17 21:15 levofloxacin [From Levaquin] Allergy Rash Verified 12/20/17 21:15 metronidazole [From Flagyl] Allergy Rash Verified 12/20/17 21:15 sulfamethoxazole Allergy Rash Verified 12/20/17 21:15 [From Septra] trimethoprim [From Septra] Allergy Rash Verified 12/20/17 21:15 Home Meds: Home Meds Esomeprazole Magnesium [Nexium] 40 mg PO DAILY 04/18/15 [History] [place] Carbonate 600 mg PO BID 04/18/15 [History] QUEtiapine [SEROquel] 400 mg PO BEDTIME 04/18/15 [History] Losartan [Cozaar] 50 mg PO DAILY 11/16/16 [History] amLODIPine [Norvasc] 10 mg PO DAILY 11/16/16 [History] Etonogestrel [Nexplanon] 68 mg SQ ASDIRECTED 08/29/17 [History] Famotidine [Pepcid] 20 mg PO BEDTIME 08/29/17 [History] Levothyroxine [Synthroid] 50 mcg PO ACBREAKFAST 11/16/17 [History] Meclizine HCl 25 mg PO Q6H PRN #10 tablet 12/20/17 [Rx] Past Medical History Cardiovascular History: Reports: Hypertension Respiratory History: Reports: Sleep Apnea Gastrointestinal History: Reports: GERD 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 Musculoskeletal History: Reports: Arthritis Psychiatric History: Reports: Anxiety, Bipolar, Depression Endocrine/Metabolic History: Reports: Hypothyroidism, Obesity/BMI 30+, Other ( See Below) Hematologic History: Reports: Anemia Oncologic (Cancer) History: Reports: Other (See Below) Other Oncologic History: anemia - Past Surgical History HEENT Surgical History: Reports: Oral Surgery, Tonsillectomy Endocrine Surgical History: Reports: Thyroidectomy Social & Family History - Family History Family Medical History: Noncontributory - Tobacco Use Smoking Status *Q: Never Smoker - Caffeine Use Caffeine Use: Reports: Coffee, Soda Other Caffeine Use: drinks 2 liters of soda a day - Recreational Drug Use Recreational Drug Use: No - Living Situation & Occupation Living situation: Reports: Single, Alone Occupation: Unemployed ED ROS GENERAL - Review of Systems Review Of Systems: See Below Constitutional: Reports: No Symptoms. Denies: Fever, Chills HEENT: Reports: No Symptoms Respiratory: Reports: No Symptoms. Denies: Shortness of Breath Cardiovascular: Reports: No Symptoms, Palpitations GI/Abdominal: Reports: Abdominal Pain, Other (She has some mild rib discomfort left side of her abdomen at the margin of her ribs). Denies: Black Stool, Bloody Stool, Constipation, Diarrhea, Decreased Appetite, Mucous in Stool, Nausea, Vomiting : Reports: No Symptoms Musculoskeletal: Reports: No Symptoms Skin: Reports: No Symptoms Neurological: Reports: No Symptoms Psychiatric: Reports: No Symptoms ED EXAM, GI/ABD - Physical Exam Exam: See Below Exam Limited By: No Limitations General Appearance: Alert, No Apparent Distress Eyes: Bilateral: Normal Appearance Ears: Normal External Exam, Normal Canal, Hearing Grossly Normal, Normal TMs Nose: Normal Inspection, Normal Mucosa, No Blood Throat/Mouth: Normal Inspection, Normal Lips, Normal Gums, Normal Oropharynx, Normal Voice, No Airway Compromise Head: Atraumatic, Normocephalic Neck: Normal Inspection, Supple, Non-Tender, Full Range of Motion. No: Lymphadenopathy (L), Lymphadenopathy (R) Respiratory/Chest: No Respiratory Distress, Lungs Clear, Normal Breath Sounds. No: No Accessory Muscle Use, Chest Non-Tender, Respiratory Distress, Pleural Rub Cardiovascular: Normal Peripheral Pulses, Regular Rate, Rhythm, No Murmur GI/Abdominal Exam: Normal Bowel Sounds, Soft, Non-Tender, No Organomegaly, Other (Chest tenderness base of her left ribs anteriorly this is very subtle with palpation) Neurological: Alert, Oriented, Normal Cognition Psychiatric: Normal Affect Skin Exam: Warm, Dry, Intact Course - Vital Signs Last Recorded V/S: Last Vital Signs Temp 36.8 C 12/20/17 21:15 Pulse 100 12/20/17 21:15 Resp 20 12/20/17 21:15 BP 143/91 H 12/20/17 21:15 Pulse Ox 98 12/20/17 21:15 - Orders/Labs/Meds Labs: Laboratory Tests 12/20/17 Range/Units 21:58 Sodium 139 (136-145) mEq/L Potassium 3.7 (3.5-5.1) mEq/L Chloride 104 (98-107) mEq/L Carbon Dioxide 28 (21-32) mEq/L Anion Gap 10.7 (5-15) BUN 9 (7-18) mg/dL Creatinine 1.3 H (0.55-1.02) mg/dL Est Cr Clr Drug Dosing 62.67 mL/min Estimated GFR (MDRD) 47 (>60) mL/min BUN/Creatinine Ratio 6.9 L (14-18) Glucose 92 (74-106) mg/dL Calcium 9.3 (8.5-10.1) mg/dL Meds: Medications Discontinued Medications Generic Name Dose Route Start Last Admin Trade Name Benjamin PRN Reason Stop Dose Admin Meclizine HCl 25 mg 12/20/17 21:42 12/20/17 21:56 Antivert PO 12/20/17 21:43 25 mg ONETIME ONE Administration - Re-Assessments/Exams Free Text/Narrative Re-Assessment/Exam: 12/20/17 22:23 A single much better after getting the dose of meclizine labs were checked her potassium was 3.7 this does not need to be addressed at this point we'll discharge her with some meclizine Departure - Departure Time of Disposition: 22:24 Disposition: Home, Self-Care 01 Clinical Impression: Dizziness, Rib pain on left side - Discharge Information Prescriptions: Meclizine HCl 25 mg PO Q6H PRN #10 tablet PRN Reason: Dizziness Referrals: Angie Gleason NP [Primary Care Provider] - Forms: ED Department Discharge Additional Instructions: Return to emergency room if any questions or problems. Follow-up he regular provider discuss physical therapy to help with this chronic dizziness consider audiology evaluation. Use the meclizine as a last resort for dizziness.
== END 2017-12-20 22:35 | disposition home or self-care (01) ==
LOC: JD.ED 21:05
DX: R42 Dizziness and giddiness (principal); R07.81 Pleurodynia; I10 Essential (primary) hypertension; K21.9 Gastro-esophageal reflux disease without esophagitis; E03.9 Hypothyroidism, unspecified; Z88.1 Allergy status to other antibiotic agents; Z88.8 Allergy status to other drugs, medicaments and biological substances; Z79.899 Other long term (current) drug therapy
CPT/HCPCS: 36415; 80048; 99284; A9270

== ENCOUNTER 2018-03-11 19:52 | Emergency (ER) | payer MEDICARE, MEDICAID ==
[2018-03-11 20:16] VITALS: BP 168/97
--- NOTE | 2018-03-11 20:36 | EDM.PDOC ---
ED HPI GENERAL MEDICAL PROBLEM - General Chief Complaint: Cardiovascular Problem Stated Complaint: HIGH BP/CHEST PAIN Time Seen by Provider: 03/11/18 20:16 Source of Information: Reports: Patient History Limitations: Reports: No Limitations - History of Present Illness INITIAL COMMENTS - FREE TEXT/NARRATIVE: 32-year-old female presents for evaluation and treatment of high blood pressure. States her blood pressures today have been running in the 150s-160s / 110s to 120s. She reports she was previously on amlodipine and losartan was recently switched to metoprolol. She has been taking the metoprolol 100 mg by mouth daily. Patient reports upon arrival in the ER she experienced chest pain. Reports that the pain as a 5 out of 10 is located substernal. No radiation to her neck, back or arms. She denies any associated symptoms of diaphoresis, nausea, vomiting or shortness of breath. She denies any headaches or vision changes. Patient reports associated symptoms of a dry mouth and fatigue. She is also complaining that she is dizzy. Reports a history of Mnire's disease. She had a syncopal episodes. Primary care provider is Fernanda Gleason. Patient reports she's had a total thyroidectomy. States she has been forgetting her medication and has not been taking her thyroid medication as prescribed. Onset: Today Chest Pain Score (Numeric/FACES): 5 - Related Data Allergies Allergy/AdvReac Type Severity Reaction Status Date / Time cephalexin monohydrate Allergy Rash Verified 03/11/18 20:16 [From Keflex] doxycycline Allergy Rash Verified 03/11/18 20:16 levofloxacin [From Levaquin] Allergy Rash Verified 03/11/18 20:16 metronidazole [From Flagyl] Allergy Rash Verified 03/11/18 20:16 sulfamethoxazole Allergy Rash Verified 03/11/18 20:16 [From Septra] trimethoprim [From Septra] Allergy Rash Verified 03/11/18 20:16 Home Meds: Home Meds Esomeprazole Magnesium [Nexium] 40 mg PO DAILY 04/18/15 [History] [place] Carbonate 900 mg PO BEDTIME 04/18/15 [History] Etonogestrel [Nexplanon] 68 mg SQ ASDIRECTED 08/29/17 [History] Famotidine [Pepcid] 20 mg PO BEDTIME 08/29/17 [History] Levothyroxine [Synthroid] 50 mcg PO ACBREAKFAST 11/16/17 [History] [place] Carbonate 600 mg PO DAILY 03/11/18 [History] Lurasidone HCl [Latuda] 80 mg PO BEDTIME 03/11/18 [History] Metoprolol Tartrate 100 mg PO DAILY 03/11/18 [History] Past Medical History Cardiovascular History: Reports: Hypertension Respiratory History: Reports: Sleep Apnea Gastrointestinal History: Reports: GERD 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 Musculoskeletal History: Reports: Arthritis Psychiatric History: Reports: Anxiety, Bipolar, Depression Endocrine/Metabolic History: Reports: Hypothyroidism, Obesity/BMI 30+, Other ( See Below) Hematologic History: Reports: Anemia Oncologic (Cancer) History: Reports: Other (See Below) Other Oncologic History: anemia - Past Surgical History HEENT Surgical History: Reports: Oral Surgery, Tonsillectomy Endocrine Surgical History: Reports: Thyroidectomy Social & Family History - Family History Family Medical History: Noncontributory - Tobacco Use Smoking Status *Q: Former Smoker Used Tobacco, but Quit: Yes Month/Year Tobacco Last Used: 06/2008 Second Hand Smoke Exposure: No - Caffeine Use Caffeine Use: Reports: Soda Other Caffeine Use: drinks 2 liters of soda a day - Recreational Drug Use Recreational Drug Use: No - Living Situation & Occupation Living situation: Reports: Single, Alone Occupation: Unemployed ED ROS GENERAL - Review of Systems Review Of Systems: See Below Constitutional: Reports: Malaise, Fatigue. Denies: Fever, Chills, Diaphoresis HEENT: Denies: Ear Pain, Vision Change Respiratory: Denies: Shortness of Breath, Cough Cardiovascular: Reports: Chest Pain. Denies: Syncope GI/Abdominal: Denies: Abdominal Pain, Nausea, Vomiting Musculoskeletal: Denies: Neck Pain, Arm Pain, Back Pain Neurological: Reports: Dizziness. Denies: Headache Psychiatric: Reports: Anxiety ED EXAM, GENERAL - Physical Exam Exam: See Below Exam Limited By: No Limitations General Appearance: Alert, WD/WN, No Apparent Distress, Obese Ears: Normal External Exam, Normal Canal, Hearing Grossly Normal, Normal TMs Nose: Normal Inspection Throat/Mouth: Normal Inspection, Normal Voice, No Airway Compromise Neck: Normal Inspection Respiratory/Chest: No Respiratory Distress, Lungs Clear, Normal Breath Sounds Cardiovascular: Normal Peripheral Pulses, Regular Rate, Rhythm, No Murmur GI/Abdominal: Soft, Non-Tender Neurological: Alert, Oriented, Normal Cognition Psychiatric: Flat Affect Skin Exam: Warm, Dry, Normal Color EKG INTERPRETATION EKG Date: 03/11/18 Time: 21:19 Rhythm: NSR Rate (Beats/Min): 73 [place]: Normal P-Wave: Present QRS: Normal ST-T: Normal QT: Normal EKG Interpretation Comments: Normal sinus rhythm at 73 bpm. Nonspecific interventricular conduction delay, likely incomplete Right bundle branch block. Delayed R-wave progression. T-wave inversion V1 through V4. QT is mildly prolonged. By myself and Dr. Brown. Course - Vital Signs Last Recorded V/S: Last Vital Signs Temp 97.5 F 03/11/18 20:09 Pulse 76 03/11/18 20:09 Resp 24 H 03/11/18 20:09 BP 168/97 H 03/11/18 20:09 Pulse Ox 95 03/11/18 20:09 Orthostatic Blood Pressure [ 129/65 Standing] Orthostatic Blood Pressure [ 159/103 Sitting] Orthostatic Blood Pressure [ 161/92 Supine] - Orders/Labs/Meds Orders: Active Orders 24 hr Category Date Time Status EKG 12 Lead [EKG Documentation Completion] [RC] STAT Care 03/11/18 20:35 Active Orthostatic Vital Signs [RC] ASDIRECTED Care 03/11/18 20:32 Active Chest 2V [CR] Stat Exams 03/11/18 20:33 Taken Labs: Laboratory Tests 03/11/18 03/11/18 Range/Units 20:45 20:45 WBC 20.61 H (3.98-10.04) K/mm3 RBC 4.63 (3.98-5.22) M/mm3 Hgb 12.8 (11.2-15.7) gm/L Hct 41.1 (34.1-44.9) % MCV 88.8 (79.4-94.8) fl MCH 27.6 (25.6-32.2) pg MCHC 31.1 L (32.2-35.5) g/dl RDW Std Deviation 43.0 (36.4-46.3) fL Plt Count 513 H (182-369) K/mm3 MPV 9.0 L (9.4-12.3) fl Neut % (Auto) 64.4 (34.0-71.1) % Lymph % (Auto) 24.2 (19.3-51.7) % [place] % (Auto) 7.8 (4.7-12.5) % Eos % (Auto) 2.4 (0.7-5.8) Baso % (Auto) 0.5 (0.1-1.2) % Neut # (Auto) 13.29 H (1.56-6.13) K/mm3 Lymph # (Auto) 4.99 H (1.18-3.74) K/mm3 [place] # (Auto) 1.60 H (0.24-0.36) K/mm3 Eos # (Auto) 0.49 H (0.04-0.36) K/mm3 Baso # (Auto) 0.10 H (0.01-0.08) K/mm3 Manual Slide Review Normal smear Sodium 139 (136-145) mEq/L Potassium 3.5 (3.5-5.1) mEq/L Chloride 104 (98-107) mEq/L Carbon Dioxide 28 (21-32) mEq/L Anion Gap 10.5 (5-15) BUN 7 (7-18) mg/dL Creatinine 1.5 H (0.55-1.02) mg/dL Est Cr Clr Drug Dosing 54.32 mL/min Estimated GFR (MDRD) 40 (>60) mL/min BUN/Creatinine Ratio 4.7 L (14-18) Glucose 98 (74-106) mg/dL Calcium 9.9 (8.5-10.1) mg/dL Total Bilirubin 0.3 (0.2-1.0) mg/dL AST 20 (15-37) U/L ALT 39 (14-59) U/L Alkaline Phosphatase 106 (46-116) U/L Troponin I < 0.017 (0.00-0.056) ng/mL Total Protein 8.4 H (6.4-8.2) g/dl Albumin 4.0 (3.4-5.0) g/dl Globulin 4.4 gm/dL Albumin/Globulin Ratio 0.9 L (1-2) TSH 3rd Generation 123.790 H (0.358-3.74) uIU/mL Meds: Medications Discontinued Medications Generic Name Dose Route Start Last Admin Trade Name Freq PRN Reason Stop Dose Admin Ketorolac Tromethamine 60 mg 03/11/18 20:32 03/11/18 20:56 Toradol IM 03/11/18 20:33 60 mg ONETIME ONE Administration - Radiology Interpretation Free Text/Narrative:: Chest x-ray shows poor inspiratory effort. No acute intrathoracic process. Reviewed by myself and Dr. Brown. - Re-Assessments/Exams Free Text/Narrative Re-Assessment/Exam: 03/11/18 22:22 Reviewed the labs and imaging with the patient. She is chest pain free at this time. We discussed her leukocytosis. Review of records show that she has had an elevated white count every time we have seen her but is slowly increasing. I asked her about this and she did not know anything about this. I recommend she follow-up with her family medicine provider for further evaluation. This does not appear to be infectious in etiology however, cannot rule out any autoimmune diseases or anything like leukemia at this time. She has had a normal smear. Her TSH is also very high at 123. She informs me she is not been taking her Synthroid. A stressed the importance of this. I will have her take this is also likely causing her fatigue and malaise. This also could be contributing to her leukocytosis. The metoprolol she is on also be contributing to the fatigue and malaise as her symptoms seem to worsen after starting the metoprolol. I did offer to discontinue the metoprolol and restart her on amlodipine and an Remigio or ARB. She would like to discuss this further with her primary care provider. She states that she'll contact her primary care provider on Tuesday for an appointment. I will discharge her home tonight. Discharge instructions as documented. Departure - Departure Time of Disposition: 22:23 Disposition: Home, Self-Care 01 Condition: Fair Clinical Impression: Hypothyroidism, Hypertension, Leukocytosis Referrals: Angie Gleason NP [Primary Care Provider] - Forms: ED Department Discharge Additional Instructions: Make sure you are taking your thyroid medication. You will feel much better if you take your thyroid medication as prescribed. Thyroid imbalances will often cause fatigue and malaise. Follow-up with your PCP Tuesday to discuss medication changes, your thyroid and your elevated WBC count. May need further evaluation of your elevated WBC count. Rest. Make sure you're drinking plenty of fluids. Please return to the ER if your symptoms change or worsen. - My Orders Last 24 Hours: My Active Orders 03/11/18 20:32 Orthostatic Vital Signs [RC] ASDIRECTED 03/11/18 20:33 Chest 2V [CR] Stat 03/11/18 20:35 EKG 12 Lead [EKG Documentation Completion] [RC] STAT - Assessment/Plan Last 24 Hours: My Active Orders 03/11/18 20:32 Orthostatic Vital Signs [RC] ASDIRECTED 03/11/18 20:33 Chest 2V [CR] Stat 03/11/18 20:35 EKG 12 Lead [EKG Documentation Completion] [RC] STAT
[2018-03-11] MEDS: Ketorolac 60 MG/2 ML SDV IM ONE ×2 (20:50→20:56)
--- NOTE | 2018-03-12 17:03 | CR ---
Chest: Two views of the chest were obtained. Comparison: Prior chest x-ray of 11/16/16. Heart size and mediastinum are normal. Lungs are clear. Bony structures appear unremarkable. Incidental surgical clips are seen within the abdomen. Impression: 1. Nothing acute is seen on two-view chest x-ray. Diagnostic code #1
== END 2018-03-11 22:40 | disposition home or self-care (01) ==
LOC: JD.ED 19:52
DX: E03.9 Hypothyroidism, unspecified (principal); I10 Essential (primary) hypertension; D72.829 Elevated white blood cell count, unspecified; K21.9 Gastro-esophageal reflux disease without esophagitis; Z88.1 Allergy status to other antibiotic agents; Z88.2 Allergy status to sulfonamides; Z88.8 Allergy status to other drugs, medicaments and biological substances; Z87.891 Personal history of nicotine dependence
CPT/HCPCS: 36415; 71046; 80053; 84443; 84484; 85025; 93005; 96372; 99285; J1885; 93010; 99284

== ENCOUNTER 2018-03-12 09:10 | Emergency (ER) | payer MEDICARE, MEDICAID ==
[2018-03-12 09:28] VITALS: BP 128/87
--- NOTE | 2018-03-12 10:13 | EDM.PDOC ---
ED HPI GENERAL MEDICAL PROBLEM - General Chief Complaint: Cardiovascular Problem Stated Complaint: HIGH BLOOD PRESSURE Time Seen by Provider: 03/12/18 10:11 Source of Information: Reports: Patient History Limitations: Reports: No Limitations - History of Present Illness INITIAL COMMENTS - FREE TEXT/NARRATIVE: The patient is a 32-year-old female with a chief complaint of high blood pressure. She does have a history of hypertension. She was previously on losartan and amlodipine and her pressure was well controlled. She was recently switched to metoprolol. However the metoprolol has been making her feel fatigued. Last night she did not take the metoprolol. Today her blood pressure was in the 150s to 160s systolic. She feels fine. However her mother was concerned. States she didn't know when to take her and versus wait to see primary care provider. Patient has no additional complaint. No chest pain or shortness of breath. Feels fatigued but otherwise fine. She was here in the emergency department 2 days ago with similar complaints and at that time the decision was made to defer management to her primary care provider. Meanwhile, she was noted to have very low thyroid hormone levels, thought due to noncompliance with her levothyroxine. She is requesting and amlodipine prescriptions of that she can continue her previously effective regimen of amlodipine and losartan. - Related Data Allergies Allergy/AdvReac Type Severity Reaction Status Date / Time cephalexin monohydrate Allergy Rash Verified 03/11/18 20:16 [From Keflex] doxycycline Allergy Rash Verified 03/11/18 20:16 levofloxacin [From Levaquin] Allergy Rash Verified 03/11/18 20:16 metronidazole [From Flagyl] Allergy Rash Verified 03/11/18 20:16 sulfamethoxazole Allergy Rash Verified 03/11/18 20:16 [From Septra] trimethoprim [From Septra] Allergy Rash Verified 03/11/18 20:16 Home Meds: Home Meds Esomeprazole Magnesium [Nexium] 40 mg PO DAILY 04/18/15 [History] [place] Carbonate 900 mg PO BEDTIME 04/18/15 [History] Etonogestrel [Nexplanon] 68 mg SQ ASDIRECTED 08/29/17 [History] Famotidine [Pepcid] 20 mg PO BEDTIME 08/29/17 [History] Levothyroxine [Synthroid] 50 mcg PO ACBREAKFAST 11/16/17 [History] [place] Carbonate 600 mg PO DAILY 03/11/18 [History] Lurasidone HCl [Latuda] 80 mg PO BEDTIME 03/11/18 [History] Metoprolol Tartrate 100 mg PO DAILY 03/11/18 [History] amLODIPine [Norvasc] 10 mg PO DAILY #5 tab 03/12/18 [Rx] Past Medical History Cardiovascular History: Reports: Hypertension Respiratory History: Reports: Sleep Apnea Gastrointestinal History: Reports: GERD 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 Musculoskeletal History: Reports: Arthritis Psychiatric History: Reports: Anxiety, Bipolar, Depression Endocrine/Metabolic History: Reports: Hypothyroidism, Obesity/BMI 30+ Hematologic History: Reports: Anemia Oncologic (Cancer) History: Reports: Other (See Below) Other Oncologic History: anemia - Past Surgical History HEENT Surgical History: Reports: Oral Surgery, Tonsillectomy Endocrine Surgical History: Reports: Thyroidectomy Social & Family History - Family History Family Medical History: Noncontributory - Tobacco Use Smoking Status *Q: Never Smoker Second Hand Smoke Exposure: No - Caffeine Use Caffeine Use: Reports: None Other Caffeine Use: drinks 2 liters of soda a day - Recreational Drug Use Recreational Drug Use: No - Living Situation & Occupation Living situation: Reports: Single, Alone Occupation: Unemployed ED ROS GENERAL - Review of Systems Review Of Systems: See Below Constitutional: Denies: Fever HEENT: Reports: No Symptoms Respiratory: Denies: Shortness of Breath Cardiovascular: Denies: Chest Pain Endocrine: Reports: Fatigue GI/Abdominal: Denies: Abdominal Pain : Reports: No Symptoms ED EXAM, GENERAL - Physical Exam Exam: See Below Exam Limited By: No Limitations General Appearance: Alert, WD/WN, No Apparent Distress Eye Exam: Bilateral Eye: Normal Inspection Ears: Normal External Exam Nose: Normal Inspection Throat/Mouth: Normal Inspection, Normal Voice Head: Atraumatic, Normocephalic Neck: Normal Inspection Respiratory/Chest: No Respiratory Distress, Lungs Clear, Normal Breath Sounds, No Accessory Muscle Use Cardiovascular: Normal Peripheral Pulses, Regular Rate, Rhythm, No Edema Neurological: Alert, Oriented, Normal Cognition Psychiatric: Normal Affect, Normal Mood Skin Exam: Warm, Dry, Intact, Normal Color Course - Vital Signs Last Recorded V/S: Last Vital Signs Temp 36.3 C 03/12/18 09:23 Pulse 87 03/12/18 09:23 Resp 12 03/12/18 09:23 BP 128/87 03/12/18 09:23 Pulse Ox 97 03/12/18 09:23 - Re-Assessments/Exams Free Text/Narrative Re-Assessment/Exam: 03/12/18 10:25 Discussed with mother indications for emergency department evaluation for hypertension. Meanwhile, I will write for 5 days of amlodipine, patient may follow-up with her primary doctor for further antihypertensive management. Patient and mother were satisfied with this plan. Departure - Departure Time of Disposition: 10:26 Disposition: Home, Self-Care 01 Clinical Impression: Hypertension Qualifiers: Hypertension type: unspecified Qualified Code(s): I10 - Essential (primary) hypertension Prescriptions: amLODIPine [Norvasc] 10 mg PO DAILY #5 tab Referrals: Angie Gleason NP [Primary Care Provider] - Forms: ED Department Discharge Additional Instructions: 1. Take losartan and amlodipine as prescribed 2. Discontinue the metoprolol 3. Follow up with your regular provider as soon as possible 4. Keep a log of your blood pressure daily 5. Return to the ED if you have difficulty breathing, severe pain, fever, BP top number 225 or higher, or other concerning conditions.
== END 2018-03-12 10:35 | disposition home or self-care (01) ==
LOC: JD.ED 09:10
DX: I10 Essential (primary) hypertension (principal); K21.9 Gastro-esophageal reflux disease without esophagitis; E03.9 Hypothyroidism, unspecified; F31.9 Bipolar disorder, unspecified; Z79.899 Other long term (current) drug therapy; Z88.1 Allergy status to other antibiotic agents; Z88.8 Allergy status to other drugs, medicaments and biological substances
CPT/HCPCS: 99283

== ENCOUNTER 2018-07-21 21:29 | Emergency (ER) | payer MEDICARE, MEDICAID ==
[2018-07-21 22:04] VITALS: BP 136/97
--- NOTE | 2018-07-21 22:15 | EDM.PDOC ---
ED HPI GENERAL MEDICAL PROBLEM - General Chief Complaint: Neurological Problem Stated Complaint: DIZZY Time Seen by Provider: 07/21/18 21:37 Source of Information: Reports: Patient History Limitations: Reports: No Limitations - History of Present Illness INITIAL COMMENTS - FREE TEXT/NARRATIVE: This is a 33-year-old female. She states tonight she went to the bathroom and had diarrhea but no nausea and vomiting. When she came out of the bathroom she had some dizziness so she comes to the ER for evaluation. She states she feels like she is dehydrated and she wants IV fluids. I indicated that she has moist mouth and tongue and so since she is not having nausea and vomiting will give her some water to drink to rehydrate her. She does have a history of kidney insufficiency as well as thyroid problems we'll check some blood work on her and make sure she is okay. She denies any urinary symptoms but we will check a urinalysis. No fever no chills no cough no congestion no other acute symptoms. She walked into the ER with no difficulty and with good balance. - Related Data Allergies Allergy/AdvReac Type Severity Reaction Status Date / Time cephalexin monohydrate Allergy Rash Verified 04/22/18 19:08 [From Keflex] doxycycline Allergy Rash Verified 04/22/18 19:08 levofloxacin [From Levaquin] Allergy Rash Verified 04/22/18 19:08 lithium Allergy Nausea and Verified 07/21/18 21:59 Vomiting metronidazole [From Flagyl] Allergy Rash Verified 04/22/18 19:08 sulfamethoxazole Allergy Rash Verified 04/22/18 19:08 [From Septra] trimethoprim [From Septra] Allergy Rash Verified 04/22/18 19:08 Home Meds: Home Meds Etonogestrel [Nexplanon] 68 mg SQ ASDIRECTED 08/29/17 [History] Famotidine [Pepcid] 20 mg PO BEDTIME 08/29/17 [History] Levothyroxine [Synthroid] 200 mcg PO ACBREAKFAST 11/16/17 [History] amLODIPine [Norvasc] 10 mg PO DAILY #5 tab 03/12/18 [Rx] Losartan [Cozaar] 50 mg PO DAILY 03/23/18 [History] Pantoprazole Sodium [Protonix] 40 mg PO DAILY 07/21/18 [History] QUEtiapine Fumarate [Seroquel] 200 mg PO BEDTIME 07/21/18 [History] Ziprasidone HCl [Geodon] 40 mg PO BEDTIME 07/21/18 [History] lamoTRIgine [Lamictal] 50 mg PO BEDTIME 07/21/18 [History] Past Medical History Cardiovascular History: Reports: Hypertension Respiratory History: Reports: Sleep Apnea Gastrointestinal History: Reports: GERD 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 Musculoskeletal History: Reports: Arthritis Psychiatric History: Reports: Anxiety, Bipolar, Depression Endocrine/Metabolic History: Reports: Hypothyroidism, Obesity/BMI 30+ Hematologic History: Reports: Anemia Oncologic (Cancer) History: Reports: Other (See Below) Other Oncologic History: anemia - Past Surgical History HEENT Surgical History: Reports: Oral Surgery, Tonsillectomy GI Surgical History: Reports: Cholecystectomy Endocrine Surgical History: Reports: Thyroidectomy Social & Family History - Family History Family Medical History: Noncontributory - Tobacco Use Smoking Status *Q: Never Smoker - Caffeine Use Caffeine Use: Reports: Coffee, Soda, Tea Other Caffeine Use: drinks 2 liters of soda a day - Recreational Drug Use Recreational Drug Use: No - Living Situation & Occupation Living situation: Reports: Single, Alone Occupation: Unemployed ED ROS GENERAL - Review of Systems Review Of Systems: See Below Constitutional: Denies: Fever, Chills, Diaphoresis HEENT: Reports: No Symptoms Respiratory: Denies: Shortness of Breath, Cough Cardiovascular: Denies: Chest Pain Endocrine: Reports: No Symptoms GI/Abdominal: Reports: Diarrhea. Denies: Abdominal Pain, Nausea, Vomiting : Reports: No Symptoms Musculoskeletal: Reports: No Symptoms Skin: Reports: No Symptoms Neurological: Reports: Dizziness Psychiatric: Reports: No Symptoms Hematologic/Lymphatic: Reports: No Symptoms - Physical Exam Exam: See Below Exam Limited By: No Limitations General Appearance: Alert, WD/WN, No Apparent Distress Eye Exam: Bilateral Eye: Normal Inspection, Other (There is no nystagmus this with head movement) Ears: Normal External Exam, Normal Canal, Normal TMs Nose: Normal Inspection Throat/Mouth: Normal Inspection, Normal Lips, Normal Oropharynx, Normal Voice, No Airway Compromise, Other (She has moist mucous membranes) Head Exam: Normocephalic Neck: Supple Respiratory/Chest: No Respiratory Distress, Lungs Clear, Normal Breath Sounds Cardiovascular: Regular Rate, Rhythm, No Murmur GI/Abdominal: Soft, Non-Tender. No: Guarding, Rigid, Rebound, Tender Neuro Exam (Abbreviated): Alert, Oriented, Normal Gait, No Motor/Sensory Deficits Back Exam: Full Range of Motion Extremities: Normal Range of Motion, Other (She has some puffy swelling in her lower extremities noted that his chronic) Psychiatric: Normal Affect, Normal Mood Skin Exam: Warm, Dry Course - Vital Signs Last Recorded V/S: Last Vital Signs Temp 97.9 F 07/21/18 22:03 Pulse 95 07/21/18 22:03 Resp 20 07/21/18 22:03 BP 136/97 H 07/21/18 22:03 Pulse Ox 99 07/21/18 22:03 - Orders/Labs/Meds Labs: Laboratory Tests 07/21/18 07/21/18 07/21/18 Range/Units 22:18 22:18 23:20 WBC 10.26 H (3.98-10.04) K/mm3 RBC 4.69 (3.98-5.22) M/mm3 Hgb 11.9 (11.2-15.7) gm/L Hct 37.8 (34.1-44.9) % MCV 80.6 (79.4-94.8) fl MCH 25.4 L (25.6-32.2) pg MCHC 31.5 L (32.2-35.5) g/dl RDW Std Deviation 40.0 (36.4-46.3) fL Plt Count 483 H (182-369) K/mm3 MPV 8.5 L (9.4-12.3) fl Neut % (Auto) 54.2 (34.0-71.1) % Lymph % (Auto) 33.7 (19.3-51.7) % [place] % (Auto) 8.4 (4.7-12.5) % Eos % (Auto) 2.7 (0.7-5.8) Baso % (Auto) 0.4 (0.1-1.2) % Neut # (Auto) 5.56 (1.56-6.13) K/mm3 Lymph # (Auto) 3.46 (1.18-3.74) K/mm3 [place] # (Auto) 0.86 H (0.24-0.36) K/mm3 Eos # (Auto) 0.28 (0.04-0.36) K/mm3 Baso # (Auto) 0.04 (0.01-0.08) K/mm3 Sodium 143 (136-145) mEq/L Potassium 3.6 (3.5-5.1) mEq/L Chloride 107 (98-107) mEq/L Carbon Dioxide 28 (21-32) mEq/L Anion Gap 11.6 (5-15) BUN 11 (7-18) mg/dL Creatinine 1.1 H (0.55-1.02) mg/dL Est Cr Clr Drug Dosing TNP Estimated GFR (MDRD) 57 (>60) mL/min BUN/Creatinine Ratio 10.0 L (14-18) Glucose 102 (74-106) mg/dL Calcium 9.7 (8.5-10.1) mg/dL Total Bilirubin 0.4 (0.2-1.0) mg/dL AST 15 (15-37) U/L ALT 26 (14-59) U/L Alkaline Phosphatase 94 (46-116) U/L Total Protein 7.6 (6.4-8.2) g/dl Albumin 3.5 (3.4-5.0) g/dl Globulin 4.1 gm/dL Albumin/Globulin Ratio 0.9 L (1-2) TSH 3rd Generation 0.549 (0.358-3.74) uIU/mL Urine Color Yellow (Yellow) Urine Appearance Clear (Clear) Urine pH 7.0 (5.0-8.0) Ur Specific Vendor 1.015 (1.005-1.030) Urine Protein Negative (Negative) Urine Glucose (UA) Negative (Negative) Urine Ketones Negative (Negative) Urine Occult Blood Trace-intact H (Negative) Urine Nitrite Negative (Negative) Urine Bilirubin Negative (Negative) Urine Urobilinogen 0.2 (0.2-1.0) Ur Leukocyte Esterase Negative (Negative) Urine RBC 0-5 (0-5) /hpf Urine WBC 0-5 (0-5) /hpf Ur Epithelial Cells 0-5 (0-5) /hpf Urine Bacteria Many H (FEW) /hpf Urine Mucus Not seen (FEW) /hpf - Re-Assessments/Exams Free Text/Narrative Re-Assessment/Exam: 07/22/18 00:40 I spoke to the patient regarding her normal white count and hemoglobin as well as her normal electrolytes and TSH. She now tells me she is on antibiotics by her doctor for possible walking pneumonia. She has had a dry cough in the ER but not productive and she's not been running a fever. She is going to finish the antibiotics on Tuesday and I believe that could be the reason why she is having some diarrhea. I encouraged her to take probiotics and she says she does and I suggested she take twice the amount while she is on the antibiotics. She has been drinking fluids in the ER with no difficulty. Her BUN and creatinine are normal. Departure - Departure Time of Disposition: 00:41 Disposition: Home, Self-Care 01 Condition: Good Clinical Impression: Upper respiratory infection Qualifiers: URI type: unspecified URI Qualified Code(s): J06.9 - Acute upper respiratory infection, unspecified Diarrhea Qualifiers: Diarrhea type: unspecified type Qualified Code(s): R19.7 - Diarrhea, unspecified - Discharge Information *PRESCRIPTION DRUG MONITORING PROGRAM REVIEWED*: Not Applicable *COPY OF PRESCRIPTION DRUG MONITORING REPORT IN PATIENT JENNIFER: Not Applicable Referrals: Angie Gleaosn NP [Primary Care Provider] - Forms: ED Department Discharge Additional Instructions: Continue with your probiotics but increase them since sure on the antibiotics, continue the antibiotics until you finish them tomorrow, continue drinking lots of fluids to stay well hydrated, since you have some cough syrup at home take it especially at night so you can get some sleep, recheck with your family doctor this week, return to the ER if needed
== END 2018-07-22 00:47 | disposition home or self-care (01) ==
LOC: JD.ED 21:29
DX: J06.9 Acute upper respiratory infection, unspecified (principal); R19.7 Diarrhea, unspecified; I10 Essential (primary) hypertension; E66.9 Obesity, unspecified; F31.9 Bipolar disorder, unspecified; F41.9 Anxiety disorder, unspecified; Z88.1 Allergy status to other antibiotic agents; Z88.8 Allergy status to other drugs, medicaments and biological substances; Z88.2 Allergy status to sulfonamides; Z79.899 Other long term (current) drug therapy
CPT/HCPCS: 36415; 80053; 81001; 84443; 85025; 99282; 99284

== ENCOUNTER 2018-08-17 15:57 | Emergency (ER) | payer MEDICARE, MEDICAID ==
[2018-08-17 16:31] VITALS: BP 143/83
--- NOTE | 2018-08-17 17:04 | EDM.PDOC ---
ED HPI GENERAL MEDICAL PROBLEM - General Chief Complaint: Cardiovascular Problem Stated Complaint: DIZZY Time Seen by Provider: 08/17/18 17:03 - History of Present Illness INITIAL COMMENTS - FREE TEXT/NARRATIVE: 33-year-old female presents emergency room with dry mouth and dizziness. Patient really has not any chest pain chest pressure she complains of intermittent dizziness lots of stress and anxiety and she is convinced she is dehydrated she's had no nausea vomiting no diarrhea she is taking plenty of fluids however tends to drink too much caffeinated soda pop. Patient is have multiple visits to the emergency room with similar such complaints. - Related Data Allergies Allergy/AdvReac Type Severity Reaction Status Date / Time cephalexin monohydrate Allergy Rash Verified 08/17/18 16:31 [From Keflex] doxycycline Allergy Rash Verified 08/17/18 16:31 levofloxacin [From Levaquin] Allergy Rash Verified 08/17/18 16:31 lithium Allergy Nausea and Verified 08/17/18 16:31 Vomiting metronidazole [From Flagyl] Allergy Rash Verified 08/17/18 16:31 sulfamethoxazole Allergy Rash Verified 08/17/18 16:31 [From Septra] trimethoprim [From Septra] Allergy Rash Verified 08/17/18 16:31 Home Meds: Home Meds Etonogestrel [Nexplanon] 68 mg SQ ASDIRECTED 08/29/17 [History] Famotidine [Pepcid] 20 mg PO BEDTIME 08/29/17 [History] Levothyroxine [Synthroid] 200 mcg PO ACBREAKFAST 11/16/17 [History] Losartan [Cozaar] 50 mg PO BEDTIME 03/23/18 [History] Pantoprazole Sodium [Protonix] 40 mg PO BID 07/21/18 [History] QUEtiapine Fumarate [Seroquel] 200 mg PO BEDTIME 07/21/18 [History] lamoTRIgine [Lamictal] 50 mg PO BEDTIME 07/21/18 [History] amLODIPine [Norvasc] 10 mg PO BEDTIME 08/17/18 [History] Past Medical History Cardiovascular History: Reports: Hypertension Respiratory History: Reports: Sleep Apnea Gastrointestinal History: Reports: GERD 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 Musculoskeletal History: Reports: Arthritis Psychiatric History: Reports: Anxiety, Bipolar, Depression Endocrine/Metabolic History: Reports: Hypothyroidism, Obesity/BMI 30+ Hematologic History: Reports: Anemia Oncologic (Cancer) History: Reports: Other (See Below) Other Oncologic History: anemia - Infectious Disease History Infectious Disease History: Reports: Chicken Pox - Past Surgical History HEENT Surgical History: Reports: Oral Surgery, Tonsillectomy GI Surgical History: Reports: Cholecystectomy Endocrine Surgical History: Reports: Thyroidectomy Social & Family History - Family History Family Medical History: Noncontributory - Tobacco Use Smoking Status *Q: Former Smoker Used Tobacco, but Quit: Yes Month/Year Tobacco Last Used: 2008 - Caffeine Use Caffeine Use: Reports: Coffee Other Caffeine Use: drinks 2 liters of soda a day - Recreational Drug Use Recreational Drug Use: No - Living Situation & Occupation Living situation: Reports: Single, Alone Occupation: Unemployed ED ROS GENERAL - Review of Systems Review Of Systems: See Below Constitutional: Reports: No Symptoms HEENT: Reports: No Symptoms Respiratory: Reports: No Symptoms Cardiovascular: Reports: No Symptoms Endocrine: Reports: No Symptoms GI/Abdominal: Reports: No Symptoms : Reports: No Symptoms Musculoskeletal: Reports: No Symptoms Skin: Reports: No Symptoms Neurological: Reports: Dizziness. Denies: Headache Psychiatric: Reports: Anxiety Hematologic/Lymphatic: Reports: No Symptoms ED EXAM, GENERAL - Physical Exam Exam: See Below Exam Limited By: No Limitations General Appearance: Alert, No Apparent Distress, Other (Vital signs stable afebrile no acute distress) Eye Exam: Bilateral Eye: Normal Inspection, PERRL Ears: Normal External Exam, Normal Canal, Hearing Grossly Normal, Normal TMs Nose: Normal Inspection, Normal Mucosa, No Blood Throat/Mouth: Normal Inspection, Normal Lips, Normal Teeth, Normal Gums, Normal Oropharynx, Normal Voice, No Airway Compromise Head: Atraumatic, Normocephalic Neck: Normal Inspection, Supple, Non-Tender, Full Range of Motion. No: Lymphadenopathy (L), Lymphadenopathy (R) Respiratory/Chest: No Respiratory Distress, Lungs Clear, Normal Breath Sounds Cardiovascular: Regular Rate, Rhythm, No Edema, No Murmur GI/Abdominal: Normal Bowel Sounds, Soft, Non-Tender Back Exam: Normal Inspection. No: CVA Tenderness (L), CVA Tenderness (R) Extremities: Normal Inspection, No Pedal Edema Neurological: Alert, Oriented Psychiatric: Anxious Skin Exam: Warm, Dry, Intact Course - Vital Signs Last Recorded V/S: Last Vital Signs Temp 36.3 C 08/17/18 16:27 Pulse 96 08/17/18 16:27 Resp 22 H 08/17/18 16:27 BP 143/83 H 08/17/18 16:27 Pulse Ox 100 08/17/18 16:27 - Orders/Labs/Meds Meds: Medications Discontinued Medications Generic Name Dose Route Start Last Admin Trade Name Benjamin PRN Reason Stop Dose Admin Lorazepam 0.5 mg 08/17/18 17:13 08/17/18 17:28 Ativan PO 08/17/18 17:14 0.5 mg ONETIME ONE Administration - Re-Assessments/Exams Free Text/Narrative Re-Assessment/Exam: 08/17/18 19:31 Patient is a multiple visits like this to the emergency room with negative workups. Given her normal vitals and negative physical examination at this point is determined best to try her on a little bit of Ativan and have her demonstrate that she can take by mouth fluids. She feels much better after half milligram of Ativan and taking by mouth fluids she still thinks she is a little dry but would like to go home Departure - Departure Time of Disposition: 19:31 Disposition: Home, Self-Care 01 Clinical Impression: Anxiety reaction Instructions: Generalized Anxiety Disorder, Adult Referrals: Angie Gleason NP [Primary Care Provider] - Forms: ED Department Discharge Additional Instructions: Return to emergency room if any questions problems worsening symptoms. Follow-up with your primary care provider tomorrow or Tuesday. Continue to drink plenty of fluids. Avoid caffeinated products.
[2018-08-17] MEDS ORDERED: LORazepam 0.5 MG Tab PO ONE (17:13)
== END 2018-08-17 19:44 | disposition home or self-care (01) ==
LOC: JD.ED 15:57
DX: F41.1 Generalized anxiety disorder (principal); I10 Essential (primary) hypertension; K21.9 Gastro-esophageal reflux disease without esophagitis; Z87.891 Personal history of nicotine dependence; Z88.8 Allergy status to other drugs, medicaments and biological substances; Z88.1 Allergy status to other antibiotic agents; Z79.899 Other long term (current) drug therapy
CPT/HCPCS: 99283; A9270

== ENCOUNTER 2019-04-22 17:25 | Emergency (ER) | payer MEDICARE, MEDICAID ==
[2019-04-22 17:39] VITALS: BP 133/88; PULSE 103
[2019-04-22] MEDS ORDERED: Sodium Chloride 0.9% 1,000 ML IV ONE (18:06)
[2019-04-22] MEDS ORDERED: Sodium Chloride 0.9% 10 ML Syringe FLUSH PRN (18:06)
--- NOTE | 2019-04-22 18:06 | EDM.PDOC ---
ED HPI GENERAL MEDICAL PROBLEM - General Chief Complaint: Abdominal Pain Stated Complaint: ABDOMINAL PAIN Time Seen by Provider: 04/22/19 17:45 Source of Information: Reports: Patient, Family History Limitations: Reports: No Limitations - History of Present Illness INITIAL COMMENTS - FREE TEXT/NARRATIVE: Patient plans with increasing right lower quadrant pain started yesterday. Associated with some vomiting, nausea. His able to eat and drink without problems. No fevers chills or sweats. Pain is worse with pushing on it and sometimes with movement, better at rest. Had diarrheal stool yesterday no blood noted. No burning pain or blood in the urine. She does not have her menstrual cycle as she's been on control implant. She has a history of mental health illness and is on multiple medications including Abilify, risperidone, Lamictal as well as being on medicines for high blood pressure including amlodipine and valsartan. She also takes hydrochlorothiazide. 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 She is scheduled for reevaluation at the cancer center next 2 weeks from now she had a PET scan however that showed an abnormality in the right lower quadrant is scheduled for a CT on pelvis with contrast although does not tell 2 weeks from now. Patient had her gallbladder out otherwise no other surgeries. No coughing cold symptoms or chest pain. Right Lower Abdomen Pain Score (Numeric/FACES): 7 - Related Data Allergies Allergy/AdvReac Type Severity Reaction Status Date / Time cephalexin monohydrate Allergy Rash Verified 04/22/19 17:39 [From Keflex] doxycycline Allergy Rash Verified 04/22/19 17:39 levofloxacin [From Levaquin] Allergy Rash Verified 04/22/19 17:39 lithium Allergy Nausea and Verified 04/22/19 17:39 Vomiting metronidazole [From Flagyl] Allergy Rash Verified 04/22/19 17:39 sulfamethoxazole Allergy Rash Verified 04/22/19 17:39 [From Septra] trimethoprim [From Septra] Allergy Rash Verified 04/22/19 17:39 Home Meds: Home Meds Etonogestrel [Nexplanon] 68 mg SQ ASDIRECTED 08/29/17 [History] Famotidine [Pepcid] 20 mg PO BEDTIME 08/29/17 [History] Levothyroxine [Synthroid] 200 mcg PO ACBREAKFAST 11/16/17 [History] Losartan [Cozaar] 50 mg PO BEDTIME 03/23/18 [History] Pantoprazole Sodium [Protonix] 40 mg PO BID 07/21/18 [History] QUEtiapine Fumarate [Seroquel] 200 mg PO BEDTIME 07/21/18 [History] amLODIPine [Norvasc] 10 mg PO BEDTIME 08/17/18 [History] Lactobacillus Acidophilus [Probiotic Acidophilus] 1 tab PO DAILY 04/22/19 [ History] Ziprasidone HCl [Geodon] 40 mg PO BIDMEALS 04/22/19 [History] hydroCHLOROthiazide [Hydrochlorothiazide] 25 mg PO DAILY 04/22/19 [History] lamoTRIgine [Lamictal] 100 mg PO DAILY 04/22/19 [History] lamoTRIgine [Lamictal] 200 mg PO BEDTIME 04/22/19 [History] Past Medical History HEENT History: Reports: Impaired Vision Cardiovascular History: Reports: Hypertension Respiratory History: Reports: Sleep Apnea Gastrointestinal History: Reports: GERD Other [employer] History: on the Depo shot Musculoskeletal History: Reports: Arthritis Psychiatric History: Reports: Anxiety, Bipolar, Depression Endocrine/Metabolic History: Reports: Hypothyroidism, Obesity/BMI 30+ Hematologic History: Reports: Anemia, Other (See Below) Other Hematologic History: elevated right WBC Oncologic (Cancer) History: Reports: Other (See Below) Other Oncologic History: facial - Infectious Disease History Infectious Disease History: Reports: Chicken Pox - Past Surgical History HEENT Surgical History: Reports: Oral Surgery, Tonsillectomy GI Surgical History: Reports: Cholecystectomy Endocrine Surgical History: Reports: Thyroidectomy Social & Family History - Family History Family Medical History: Noncontributory - Tobacco Use Smoking Status *Q: Never Smoker - Caffeine Use Caffeine Use: Reports: Soda, Tea Other Caffeine Use: drinks 2 liters of soda a day - Recreational Drug Use Recreational Drug Use: No - Living Situation & Occupation Living situation: Reports: Single, Alone Occupation: Unemployed ED ROS GENERAL - Review of Systems Review Of Systems: See Below Constitutional: Reports: Decreased Appetite. Denies: Fever, Diaphoresis HEENT: Denies: Rhinitis, Throat Pain Respiratory: Denies: Cough Cardiovascular: Denies: Chest Pain, Lightheadedness Endocrine: Reports: No Symptoms, Other (History of thyroid replacement) GI/Abdominal: Reports: Abdominal Pain, Diarrhea, Nausea, Vomiting. Denies: Black Stool, Bloody Stool, Distension, Hematemesis, Hematochezia : Denies: Dysuria, Flank Pain, Frequency, Hematuria Musculoskeletal: Reports: No Symptoms Skin: Reports: No Symptoms Neurological: Reports: No Symptoms Psychiatric: Reports: No Symptoms Hematologic/Lymphatic: Denies: Easy Bleeding ED EXAM, GI/ABD - Physical Exam Exam: See Below Exam Limited By: No Limitations General Appearance: Alert, WD/WN, No Apparent Distress Throat/Mouth: Normal Inspection, Normal Oropharynx Head: Atraumatic, Normocephalic Neck: Normal Inspection, Supple Respiratory/Chest: No Respiratory Distress, Lungs Clear, Normal Breath Sounds, No Accessory Muscle Use Cardiovascular: Normal Peripheral Pulses, Regular Rate, Rhythm, No Edema, No Gallop, No JVD GI/Abdominal Exam: Normal Bowel Sounds, Soft, No Mass, Tender, Other (Right lower quadrant pain, no rebound or rigidity noted. Positive over the McBurney's point.). No: Guarding, Rigid, Rebound (Female) Exam: Deferred Extremities: Normal Inspection Neurological: Alert, Oriented Psychiatric: Normal Affect, Normal Mood Skin Exam: Warm, Dry Course - Vital Signs Text/Narrative:: Examination, reviewed old records, IV fluid hydration, CT abdomen and pelvis with IV and oral contrast rule out acute appendicitis. Lab work ordered, patient denies or declines any pain medicine or antiemetics at present. Last Recorded V/S: Last Vital Signs Temp 96.8 F 04/22/19 17:34 Pulse 103 H 04/22/19 17:34 Resp 20 04/22/19 17:34 BP 133/88 04/22/19 17:34 Pulse Ox 96 04/22/19 17:34 - Orders/Labs/Meds Orders: Active Orders 24 hr Category Date Time Status Peripheral IV Care [RC] . DIRECTED Care 04/22/19 18:07 Active Pelvis Non OB Ltd [US] Stat Exams 04/22/19 20:19 Taken Sodium Chloride 0.9% [Saline Flush] Med 04/22/19 18:06 Active 10 ml FLUSH ASDIRECTED PRN Peripheral IV Insertion Adult [OM.PC] Stat Oth 04/22/19 18:06 Ordered Medication Orders Sodium Chloride (Saline Flush) 10 ml FLUSH ASDIRECTED PRN PRN Reason: Keep Vein Open Labs: Laboratory Tests 04/22/19 04/22/19 04/22/19 Range/Units 18:21 18:35 18:35 WBC 11.77 H (3.98-10.04) K/mm3 RBC 5.17 (3.98-5.22) M/mm3 Hgb 13.5 D (11.2-15.7) gm/dl Hct 41.5 (34.1-44.9) % MCV 80.3 (79.4-94.8) fl MCH 26.1 (25.6-32.2) pg MCHC 32.5 (32.2-35.5) g/dl RDW Std Deviation 41.7 (36.4-46.3) fL Plt Count 492 H (182-369) K/mm3 MPV 8.5 L (9.4-12.3) fl Neutrophils % (Manual) 63 H (40-60) % Band Neutrophils % 0 (0-10) % Lymphocytes % (Manual) 32 (20-40) % Atypical Lymphs % 0 % Monocytes % (Manual) 5 (2-10) % Eosinophils % (Manual) 0 L (0.7-5.8) % Basophils % (Manual) 0 L (0.1-1.2) Platelet Estimate Increased Plt Morphology Comment Normal RBC Morph Comment Normal Sodium 140 (136-145) mEq/L Potassium 3.6 (3.5-5.1) mEq/L Chloride 102 (98-107) mEq/L Carbon Dioxide 26 (21-32) mEq/L Anion Gap 15.6 H (5-15) BUN 12 (7-18) mg/dL Creatinine 1.3 H (0.55-1.02) mg/dL Est Cr Clr Drug Dosing 62.09 mL/min Estimated GFR (MDRD) 47 (>60) mL/min BUN/Creatinine Ratio 9.2 L (14-18) Glucose 107 H (74-106) mg/dL Lactic Acid (0.4-2.1) mmol/L Calcium 9.5 (8.5-10.1) mg/dL Total Bilirubin 0.5 (0.2-1.0) mg/dL AST 18 (15-37) U/L ALT 28 (14-59) U/L Alkaline Phosphatase 119 H (46-116) U/L Total Protein 8.1 (6.4-8.2) g/dl Albumin 3.9 (3.4-5.0) g/dl Globulin 4.2 gm/dL Albumin/Globulin Ratio 0.9 L (1-2) Lipase 134 (73-393) U/L Urine Color Light yellow (Yellow) Urine Appearance Clear (Clear) Urine pH 7.0 (5.0-8.0) Ur Specific [place] 1.020 (1.005-1.030) Urine Protein Negative (Negative) Urine Glucose (UA) Negative (Negative) Urine Ketones Negative (Negative) Urine Occult Blood 1+ H (Negative) Urine Nitrite Negative (Negative) Urine Bilirubin Negative (Negative) Urine Urobilinogen 0.2 (0.2-1.0) Ur Leukocyte Esterase Trace H (Negative) Urine RBC 0-5 (0-5) /hpf Urine WBC 10-20 H (0-5) /hpf Ur Squamous Epith Cells 20-30 H (0-5) /hpf Urine Bacteria Moderate H (FEW) /hpf Urine Mucus Not seen (FEW) /hpf 04/22/19 Range/Units 18:35 WBC (3.98-10.04) K/mm3 RBC (3.98-5.22) M/mm3 Hgb (11.2-15.7) gm/dl Hct (34.1-44.9) % MCV (79.4-94.8) fl MCH (25.6-32.2) pg MCHC (32.2-35.5) g/dl RDW Std Deviation (36.4-46.3) fL Plt Count (182-369) K/mm3 MPV (9.4-12.3) fl Neutrophils % (Manual) (40-60) % Band Neutrophils % (0-10) % Lymphocytes % (Manual) (20-40) % Atypical Lymphs % % Monocytes % (Manual) (2-10) % Eosinophils % (Manual) (0.7-5.8) % Basophils % (Manual) (0.1-1.2) Platelet Estimate Plt Morphology Comment RBC Morph Comment Sodium (136-145) mEq/L Potassium (3.5-5.1) mEq/L Chloride (98-107) mEq/L Carbon Dioxide (21-32) mEq/L Anion Gap (5-15) BUN (7-18) mg/dL Creatinine (0.55-1.02) mg/dL Est Cr Clr Drug Dosing mL/min Estimated GFR (MDRD) (>60) mL/min BUN/Creatinine Ratio (14-18) Glucose (74-106) mg/dL Lactic Acid 0.9 (0.4-2.1) mmol/L Calcium (8.5-10.1) mg/dL Total Bilirubin (0.2-1.0) mg/dL AST (15-37) U/L ALT (14-59) U/L Alkaline Phosphatase (46-116) U/L Total Protein (6.4-8.2) g/dl Albumin (3.4-5.0) g/dl Globulin gm/dL Albumin/Globulin Ratio (1-2) Lipase (73-393) U/L Urine Color (Yellow) Urine Appearance (Clear) Urine pH (5.0-8.0) Ur Specific [place] (1.005-1.030) Urine Protein (Negative) Urine Glucose (UA) (Negative) Urine Ketones (Negative) Urine Occult Blood (Negative) Urine Nitrite (Negative) Urine Bilirubin (Negative) Urine Urobilinogen (0.2-1.0) Ur Leukocyte Esterase (Negative) Urine RBC (0-5) /hpf Urine WBC (0-5) /hpf Ur Squamous Epith Cells (0-5) /hpf Urine Bacteria (FEW) /hpf Urine Mucus (FEW) /hpf Meds: Medications Generic Name Dose Route Start Last Admin Trade Name Freq PRN Reason Stop Dose Admin Sodium Chloride 10 ml 04/22/19 18:06 Saline Flush FLUSH ASDIRECTED PRN Keep Vein Open Discontinued Medications Generic Name Dose Route Start Last Admin Trade Name Freq PRN Reason Stop Dose Admin Sodium Chloride 1,000 mls @ 250 mls/hr 04/22/19 18:06 04/22/19 18:37 Normal Saline IV 04/22/19 22:05 250 mls/hr ONETIME ONE Administration Iopamidol 100 ml 04/22/19 19:42 04/22/19 19:45 Isovue-300 (61%) IVPUSH 04/22/19 19:43 100 ml ONETIME ONE Administration - Radiology Interpretation Free Text/Narrative:: CT abdomen and pelvis with IV and oral contrast notes a normal appendix. No acute findings. Aorta is normal no mesenteric adenopathy and no retroperitoneal adenopathy and the mole sigmoid diverticuli ever no diverticulitis CT Results Date: 04/22/19 CT Results Time: 20:09 - Re-Assessments/Exams Free Text/Narrative Re-Assessment/Exam: 04/22/19 20:12 CBC shows white count 11,700, hemoglobin 13.5 hematocrit of 41.5 platelet count 4 92,063% neutrophils Sodium 140 potassium 3.6 chloride 102 CO2 is 26 by mouth in 12 Cristiana 1.3 glucose 107 alkaline phosphatase 119 lipase 134 LFTs otherwise are normal Urine is tended 20 white blood cells per high per field, [place] squamous cells are moderate bacteria trace leukocyte esterase negative nitrites. Patient received IV fluids and is stable. No signs of acute abdomen. Will have her follow up with primary care tomorrow, abdominal pain precautions otherwise given. Free Text/Narrative Re-Assessment/Exam: 04/22/19 22:39 Patient continues to do well with family have the results of the pelvic ultrasound is unremarkable. Discharge home follow up and return to caution given Departure - Departure Time of Disposition: 22:40 Disposition: Home, Self-Care 01 Condition: Good Clinical Impression: Abdominal pain - Discharge Information *PRESCRIPTION DRUG MONITORING PROGRAM REVIEWED*: Not Applicable *COPY OF PRESCRIPTION DRUG MONITORING REPORT IN PATIENT JENNIFER: Not Applicable Instructions: Abdominal Pain, Adult, [id number] Referrals: Angie Gleason NP [Primary Care Provider] - Forms: ED Department Discharge Additional Instructions: Follow-up with your primary provider tomorrow. Return to the emergency department sooner if increasing pain, vomiting, unable to keep down fluids, fevers, unable to pass gas or stool per rectum, worse - My Orders Last 24 Hours: My Active Orders 04/22/19 18:06 Sodium Chloride 0.9% [Saline Flush] 10 ml FLUSH ASDIRECTED PRN Peripheral IV Insertion Adult [OM.PC] Stat 04/22/19 18:07 Peripheral IV Care [RC] . DIRECTED 04/22/19 20:19 Pelvis Non OB Ltd [US] Stat - Assessment/Plan Last 24 Hours: My Active Orders 04/22/19 18:06 Sodium Chloride 0.9% [Saline Flush] 10 ml FLUSH ASDIRECTED PRN Peripheral IV Insertion Adult [OM.PC] Stat 04/22/19 18:07 Peripheral IV Care [RC] . DIRECTED 04/22/19 20:19 Pelvis Non OB Ltd [US] Stat
[2019-04-22] MEDS ORDERED: Iopamidol 612 MG/ML 100 ML Bottle IVPUSH ONE (19:42)
--- NOTE | 2019-04-22 20:04 | CT ---
CT abdomen and pelvis Technique: Multiple axial sections were obtained from above the dome of the diaphragm inferiorly through the pubic symphysis. Intravenous and oral contrast was utilized. Delayed images were obtained through the bladder. Comparison: Previous CT abdomen and pelvis exam of 07/10/18. Findings: Visualized lung bases are clear. No focal abnormality is appreciated within the liver. Spleen also shows no focal abnormality. Adrenal glands show no nodule. Kidneys show symmetric contrast enhancement. Cyst is noted within the right kidney which appears stable and measures approximately 1.5 cm. Nonobstructing calculus is noted within each kidney. No ureteral dilatation is seen. Aorta shows no aneurysm. Pancreas is within normal limits. Surgical clips are noted from prior cholecystectomy. No mesenteric abnormalities are seen. No retroperitoneal adenopathy is seen. Appendix is seen and is normal in size. No pelvic mass or adenopathy is seen. No free fluid or inflammatory change is seen. Minimal sigmoid diverticuli are seen without findings of diverticulitis. Bone window settings were reviewed which appear within normal limits for the patient's age. Impression: 1. Appendix is seen and appears normal in size. 2. Nonacute findings as noted above. Diagnostic code #2
--- NOTE | 2019-04-23 07:22 | US ---
Pelvic ultrasound: Multiple real-time images of the pelvis were obtained. Study was obtained transvaginally. Comparison: Prior CT abdomen and pelvis exam of performed earlier on the same day. Uterus not visualized. Both ovaries are also not well seen. No discrete adnexal abnormalities are seen. No free fluid is seen. Impression: 1. Findings as noted above. Nothing acute is appreciated. Diagnostic code #2 I agree with preliminary report from [facility], finalized on 04/22/19, 11:35 PM Central Time
== END 2019-04-22 22:48 | disposition home or self-care (01) ==
LOC: JD.ED 17:25
DX: R10.31 Right lower quadrant pain (principal); R11.2 Nausea with vomiting, unspecified; I10 Essential (primary) hypertension; E03.9 Hypothyroidism, unspecified; F31.9 Bipolar disorder, unspecified; E66.9 Obesity, unspecified; Z79.899 Other long term (current) drug therapy; Z79.890 Hormone replacement therapy; Z68.43 Body mass index [BMI] 50.0-59.9, adult; Z88.1 Allergy status to other antibiotic agents; Z88.8 Allergy status to other drugs, medicaments and biological substances; Z88.2 Allergy status to sulfonamides
CPT/HCPCS: 36415; 74177; 76857; 80053; 81001; 83605; 83690; 85007; 85027; 96360; 96361; 99284; J7040; Q9967; 99283

== ENCOUNTER 2019-06-30 22:13 | Emergency (ER) | payer MEDICARE, MEDICAID ==
[2019-06-30 22:45] VITALS: BP 141/79; PULSE 117
--- NOTE | 2019-06-30 23:06 | EDM.PDOCBH ---
ED HPI GENERAL MEDICAL PROBLEM - General Chief Complaint: Behavioral/Psych Stated Complaint: SUICIDAL Time Seen by Provider: 06/30/19 22:38 Source of Information: Reports: Patient History Limitations: Reports: No Limitations - History of Present Illness INITIAL COMMENTS - FREE TEXT/NARRATIVE: Ms. Mccormick is a 34-year-old woman with a past medical history significant for bipolar affective disorder I, depression, and anxiety, currently being treated with Cymbalta, Geodon, Seroquel, and Lamictal, that she states she is compliant with. She now presents to the ED stating that she heard voices telling her to go outside to in the cold (it is currently -9 outside , with a wind chill of -30). The patient states that she has been feeling suicidal tonight, considering overdosing on pills. She did not actually attempt to harm herself tonight. The patient states that she had auditory hallucinations only once before in her life, in 2004, when she attempted suicide by overdosing on Aleve and ibuprofen. She states that she subsequently got sick to her stomach, told her mother what she had done, was brought to the ED, and subsequently psychiatrically admitted for about a week. Since then, the patient states that she has been psychiatrically admitted to many times to count, most recently about 2 weeks ago , for about 6 days. The patient denies recent illness, such as fever, chills, cough, dyspnea, chest pain, palpitations, nausea, vomiting, constipation, diarrhea, abdominal pain, urinary symptoms, his weight gain or weight loss, recent bloody bowel movements or black bowel movement was, recent joint aches, headaches, or rashes. The patient's PCP is Angie Gleason NP. She cannot recall the name of her Psychiatrist, in [place]. Her Psychologist is Karishma Juarez PsyD, in [place]. She did not receive an influenza vaccine this season, but agreed to receive one here [facility]. - Related Data Allergies Allergy/AdvReac Type Severity Reaction Status Date / Time cephalexin monohydrate Allergy Rash Verified 04/22/19 17:39 [From Keflex] doxycycline Allergy Rash Verified 04/22/19 17:39 levofloxacin [From Levaquin] Allergy Rash Verified 04/22/19 17:39 lithium Allergy Nausea and Verified 04/22/19 17:39 Vomiting metronidazole [From Flagyl] Allergy Rash Verified 04/22/19 17:39 sulfamethoxazole Allergy Rash Verified 04/22/19 17:39 [From Febra] trimethoprim [From ] Allergy Rash Verified 04/22/19 17:39 Home Meds: Home Meds Etonogestrel [Nexplanon] 68 mg SQ ASDIRECTED 08/29/17 [History] Famotidine [Pepcid] 20 mg PO BEDTIME 08/29/17 [History] Levothyroxine [Synthroid] 200 mcg PO ACBREAKFAST 11/16/17 [History] Losartan [Cozaar] 50 mg PO BEDTIME 03/23/18 [History] Pantoprazole Sodium [Protonix] 40 mg PO BID 07/21/18 [History] QUEtiapine Fumarate [Seroquel] 200 mg PO BEDTIME 07/21/18 [History] amLODIPine [Norvasc] 10 mg PO BEDTIME 08/17/18 [History] Lactobacillus Acidophilus [Probiotic Acidophilus] 1 tab PO DAILY 04/22/19 [ History] Ziprasidone HCl [Geodon] 40 mg PO BIDMEALS 04/22/19 [History] hydroCHLOROthiazide [Hydrochlorothiazide] 25 mg PO DAILY 04/22/19 [History] lamoTRIgine [Lamictal] 100 mg PO DAILY 04/22/19 [History] lamoTRIgine [Lamictal] 200 mg PO BEDTIME 04/22/19 [History] DULoxetine [Cymbalta] 60 mg PO DAILY 06/30/19 [History] Past Medical History HEENT History: Reports: Impaired Vision Cardiovascular History: Reports: Hypertension Respiratory History: Reports: Sleep Apnea Gastrointestinal History: Reports: GERD Musculoskeletal History: Reports: Arthritis Psychiatric History: Reports: Anxiety, Bipolar (I), Depression Endocrine/Metabolic History: Reports: Hypothyroidism (following thyroidectomy), Obesity/BMI 30+, Other (See Below) (Prediabetes, untreated) - Infectious Disease History Infectious Disease History: Reports: Chicken Pox - Past Surgical History HEENT Surgical History: Reports: Oral Surgery (wisdom teeth extraction), Tonsillectomy GI Surgical History: Reports: Cholecystectomy (Jul 2017) Endocrine Surgical History: Reports: Thyroidectomy (2 noncancerous tumor) Social & Family History - Family History Family Medical History: Noncontributory - Tobacco Use Smoking Status *Q: Former Smoker Years of Tobacco use: 5 Packs/Tins Daily: 1 Month/Year Tobacco Last Used: Quit 2009 - Caffeine Use Caffeine Use: Reports: Soda Other Caffeine Use: drinks 2 liters of soda a day - Alcohol Use Alcohol Use History: Yes Date/Time of Last Drink Comment: Quit 2018 2 medications - Recreational Drug Use Recreational Drug Use: No - Living Situation & Occupation Living situation: Reports: Single, Alone Occupation: Unemployed ED ROS GENERAL - Review of Systems Review Of Systems: Comprehensive ROS is negative, except as noted in HPI. ED EXAM, BEHAVIORAL HEALTH - Physical Exam Exam: See Below Exam Limited By: No Limitations General Appearance: Alert, WD/WN, No Apparent Distress Eye Exam: Bilateral Eye: EOMI, Normal Inspection Ears: Normal External Exam, Hearing Grossly Normal Nose: Normal Inspection Throat/Mouth: Normal Inspection, Normal Lips, Normal Voice, No Airway Compromise Head: Atraumatic, Normocephalic Neck: Normal Inspection, Full Range of Motion Respiratory/Chest: No Respiratory Distress, Lungs Clear, Normal Breath Sounds, No Accessory Muscle Use Cardiovascular: Normal Peripheral Pulses, Regular Rate, Rhythm, No Edema, No Gallop, No JVD, No Murmur, No Rub GI/Abdominal: Normal Bowel Sounds, Soft, Non-Tender, No Organomegaly, No Distention, No Abnormal Bruit, No Mass (Female) Exam: Deferred Rectal (Female) Exam: Deferred Back Exam: Normal Inspection, Full Range of Motion, NT Extremities: Normal Inspection, Normal Range of Motion, No Pedal Edema, Normal Capillary Refill Neurological: Alert, Normal Cognition, No Motor/Sensory Deficits, Oriented x 3 Psychiatric: Depressed Mood, Tearful Skin Exam: Warm, Dry, Intact, Normal color, No rash EKG INTERPRETATION EKG Date: 06/30/19 Time: 23:19 Rhythm: NSR Rate (Beats/Min): 91 [place]: Normal P-Wave: Present QRS: Wide (Nonspecific intraventricular conduction delay) ST-T: Normal QT: Normal Comparison: No Change (06/30/2017, although the QTc was prolonged on the earlier ECG) COURSE, BEHAVIORAL HEALTH COMP - Course Vital Signs: Last Vital Signs Temp 35.9 C 06/30/19 22:43 Pulse 117 H 06/30/19 22:43 Resp 20 06/30/19 22:43 BP 141/79 H 06/30/19 22:43 Pulse Ox 97 06/30/19 22:43 Orders, Labs, Meds: Active Orders 24 hr Category Date Time Status EKG Documentation Completion [RC] STAT Care 06/30/19 23:02 Active Influenza Vaccine Charge [RC] .DISCHARGE Care 06/30/19 23:03 Active Laboratory Tests 06/30/19 06/30/19 06/30/19 Range/Units 23:15 23:15 23:25 WBC (3.98-10.04) K/mm3 RBC (3.98-5.22) M/mm3 Hgb (11.2-15.7) gm/dl Hct (34.1-44.9) % MCV (79.4-94.8) fl MCH (25.6-32.2) pg MCHC (32.2-35.5) g/dl RDW Std Deviation (36.4-46.3) fL Plt Count (182-369) K/mm3 MPV (9.4-12.3) fl Neut % (Auto) (34.0-71.1) % Lymph % (Auto) (19.3-51.7) % Frio % (Auto) (4.7-12.5) % Eos % (Auto) (0.7-5.8) Baso % (Auto) (0.1-1.2) % Neut # (Auto) (1.56-6.13) K/mm3 Lymph # (Auto) (1.18-3.74) K/mm3 Frio # (Auto) (0.24-0.36) K/mm3 Eos # (Auto) (0.04-0.36) K/mm3 Baso # (Auto) (0.01-0.08) K/mm3 Manual Slide Review Sodium 141 (136-145) mEq/L Potassium 3.1 L (3.5-5.1) mEq/L Chloride 104 (98-107) mEq/L Carbon Dioxide 25 (21-32) mEq/L Anion Gap 15.1 H (5-15) BUN 20 H (7-18) mg/dL Creatinine 1.2 H (0.55-1.02) mg/dL Est Cr Clr Drug Dosing 64.24 mL/min Estimated GFR (MDRD) 51 (>60) mL/min BUN/Creatinine Ratio 16.7 (14-18) Glucose 106 (74-106) mg/dL Calcium 9.6 (8.5-10.1) mg/dL Total Bilirubin 0.4 (0.2-1.0) mg/dL AST 15 (15-37) U/L ALT 30 (14-59) U/L Alkaline Phosphatase 108 (46-116) U/L Total Protein 7.6 (6.4-8.2) g/dl Albumin 3.8 (3.4-5.0) g/dl Globulin 3.8 gm/dL Albumin/Globulin Ratio 1.0 (1-2) TSH 3rd Generation 0.463 (0.358-3.74) uIU/mL Urine HCG, Qual Negative (NEGATIVE) Salicylates (2.8-20) mg/dL Urine Opiates Screen Negative (NNNHRZ=566) Ur Buprenorphine Scrn Negative (CUTOFF=10) Ur Oxycodone Screen Negative (IHA1UF=284) Urine Methadone Screen Negative (HUTNTU=403) Ur Propoxyphene Screen Negative (VXYJNF=513) Acetaminophen 0 L (10-30) ug/mL Ur Barbiturates Screen Negative (BJOFXA=382) Ur Tricyclics Screen Presumptive positive H (NJZKEN=463) Ur Phencyclidine Scrn Negative (CUTOFF=25) Ur Amphetamine Screen Negative (PWURCG=821) U Methamphetamines Scrn Negative (XFHZUG=261) U Benzodiazepines Scrn Negative (GAVQWU=588) U Cocaine Metab Screen Negative (SOAZMV=094) U Marijuana (THC) Screen Negative (CUTOFF=50) Ethyl Alcohol 0.00 (0.00) gm% 06/30/19 06/30/19 Range/Units 23:25 23:25 WBC 13.80 H (3.98-10.04) K/mm3 RBC 5.03 (3.98-5.22) M/mm3 Hgb 13.3 (11.2-15.7) gm/dl Hct 41.0 (34.1-44.9) % MCV 81.5 (79.4-94.8) fl MCH 26.4 (25.6-32.2) pg MCHC 32.4 (32.2-35.5) g/dl RDW Std Deviation 41.6 (36.4-46.3) fL Plt Count 439 H (182-369) K/mm3 MPV 8.9 L (9.4-12.3) fl Neut % (Auto) 61.4 (34.0-71.1) % Lymph % (Auto) 26.6 (19.3-51.7) % Frio % (Auto) 9.1 (4.7-12.5) % Eos % (Auto) 2.2 (0.7-5.8) Baso % (Auto) 0.3 (0.1-1.2) % Neut # (Auto) 8.47 H (1.56-6.13) K/mm3 Lymph # (Auto) 3.67 (1.18-3.74) K/mm3 Frio # (Auto) 1.25 H (0.24-0.36) K/mm3 Eos # (Auto) 0.31 (0.04-0.36) K/mm3 Baso # (Auto) 0.04 (0.01-0.08) K/mm3 Manual Slide Review Normal smear Sodium (136-145) mEq/L Potassium (3.5-5.1) mEq/L Chloride (98-107) mEq/L Carbon Dioxide (21-32) mEq/L Anion Gap (5-15) BUN (7-18) mg/dL Creatinine (0.55-1.02) mg/dL Est Cr Clr Drug Dosing mL/min Estimated GFR (MDRD) (>60) mL/min BUN/Creatinine Ratio (14-18) Glucose (74-106) mg/dL Calcium (8.5-10.1) mg/dL Total Bilirubin (0.2-1.0) mg/dL AST (15-37) U/L ALT (14-59) U/L Alkaline Phosphatase (46-116) U/L Total Protein (6.4-8.2) g/dl Albumin (3.4-5.0) g/dl Globulin gm/dL Albumin/Globulin Ratio (1-2) TSH 3rd Generation (0.358-3.74) uIU/mL Urine HCG, Qual (NEGATIVE) Salicylates 1.1 L (2.8-20) mg/dL Urine Opiates Screen (IJCVSA=472) Ur Buprenorphine Scrn (CUTOFF=10) Ur Oxycodone Screen (EWU8HV=011) Urine Methadone Screen (JCEECJ=031) Ur Propoxyphene Screen (FBZBRF=097) Acetaminophen (10-30) ug/mL Ur Barbiturates Screen (ICLDKU=524) Ur Tricyclics Screen (EVBULF=558) Ur Phencyclidine Scrn (CUTOFF=25) Ur Amphetamine Screen (RYHLBK=764) U Methamphetamines Scrn (BLWHZN=729) U Benzodiazepines Scrn (VFNFQQ=120) U Cocaine Metab Screen (DVVQIR=132) U Marijuana (THC) Screen (CUTOFF=50) Ethyl Alcohol (0.00) gm% Medications Discontinued Medications Generic Name Dose Route Start Last Admin Trade Name Benjamin PRN Reason Stop Dose Admin Haloperidol Lactate 5 mg 06/30/19 23:43 06/30/19 23:52 Haldol IM 06/30/19 23:44 5 mg ONETIME ONE Administration Influenza Virus Vaccine 60 mcg 06/30/19 23:45 06/30/19 23:50 Fluzone Quad Syringe IM 06/30/19 23:46 60 mcg .ONCE ONE Administration Potassium Chloride 40 meq 07/01/19 00:43 07/01/19 04:55 Klor-Con M20 PO 07/01/19 00:44 40 meq ONETIME ONE Administration Potassium Chloride Confirm 07/01/19 04:54 Klor-Con M20 Administered 07/01/19 04:55 Dose 20 meq .ROUTE .STK-MED ONE Potassium Chloride Confirm 07/01/19 04:56 Klor-Con M20 Administered 07/01/19 04:57 Dose 20 meq .ROUTE .STK-MED ONE Medical Clearance: 06/30/19 23:04 The patient appears to be suffering from major depression with psychotic features, is clearly suicidal, and will require emergency psychiatric admission. I have ordered a standard psychiatric medical clearance panel. In the meantime, we will see if he can find something for the patient to eat, and she will receive an influenza vaccine. 06/30/19 23:44 The patient has twice now attempted to leave the ED, telling Celi BONNER that the voices are instructing her to go out into the cold. On both occasions, she was redirected back to her room by her nurse, however, due to her agitation, I have ordered Haldol 5 mg IM. 07/01/19 00:44 The patient's CBC is remarkable for a WBC count mildly elevated at 13.80, but with a normal differential. Her platelets are elevated at 439,000, with the remainder of her CBC being unremarkable. Her CMP is remarkable for a potassium mildly depressed at 3.1, and anion gap slightly elevated at 15.1 with a bicarbonate normal at 25, and a BUN/Cr mildly elevated at 20/1.2, with the remainder of her CMP being unremarkable. Her TSH is within normal limits at 0.463. Her acetaminophen level is 0. Her salicylate level is within normal limits at 1.1. Her EtOH level is 0. Her urine drug screen is positive for tricyclic antidepressants, and is otherwise negative. Her urine test is negative. While the patient is not on a tricyclic antidepressant, she is on Seroquel, which is known to cause TCA false positives on urine drug screens. The patient's mild hypokalemia will be treated with 40 mEq oral KCl. The patient is sleeping soundly. We will endeavor to find a psychiatric bed for the patient. 07/01/19 01:02 Case discussed with Kirill at [facility] at 00:50. Case then discussed with Dr. Cheema, Psychiatrist at [facility], at 00: 59. She was able to look up prior medical records, finding that the patient was admitted to their facility from 06/16/2019 through 06/20/2019. She also sees that the patient's mother, Chelita Gay, is the patient's guardian. She is going to contact the psychiatric unit to see if prior guardianship paperwork is still in effect. They will call us back. 07/01/19 01:12 Called back by Kirill and Dr. Cheema at 01:08. All they need is a 24-hour hold. Dr. Cheema accepted the patient, pending approval of the paperwork by the psychiatric unit. We will fax a copy of this note, along with the 24 hour hold paperwork and a face sheet to [phone]. Departure - Departure Time of Disposition: 01:15 Disposition: DC/Tfer to Psych Hosp/Unit 65 Condition: Good Clinical Impression: Major depression with psychotic features, Suicidal ideation - Discharge Information *PRESCRIPTION DRUG MONITORING PROGRAM REVIEWED*: Not Applicable *COPY OF PRESCRIPTION DRUG MONITORING REPORT IN PATIENT JENNIFER: Not Applicable Referrals: Angie Gleason NP [Primary Care Provider] - Forms: ED Department Discharge Sepsis Event Note - Evaluation Sepsis Screening Result: No Definite Risk - Focused Exam Date Exam was Performed: 07/01/19 Time Exam was Performed: 18:07 - My Orders Last 24 Hours: My Active Orders 06/30/19 23:02 EKG Documentation Completion [RC] STAT 06/30/19 23:03 Influenza Vaccine Charge [RC] .DISCHARGE - Assessment/Plan Last 24 Hours: My Active Orders 06/30/19 23:02 EKG Documentation Completion [RC] STAT 06/30/19 23:03 Influenza Vaccine Charge [RC] .DISCHARGE
[2019-06-30] MEDS ORDERED: Haloperidol Lactate 5 MG/ML SDV IM ONE (23:43)
[2019-06-30] MEDS ORDERED: FLU Vacc QS2019-20(6MOS+)/PF 60 MCG/0.5 ML SYRINGE IM ONE (23:45)
[2019-07-01] MEDS ORDERED: Potassium Chloride 20 MEQ Tab.ER PO ONE (00:43)
[2019-07-01] MEDS ORDERED: Potassium Chloride 20 MEQ Tab.ER ONE ×2 (04:54→04:56)
== END 2019-07-01 10:00 ==
LOC: JD.ED 22:13
DX: F32.3 Major depressive disorder, single episode, severe with psychotic features (principal); I10 Essential (primary) hypertension; K21.9 Gastro-esophageal reflux disease without esophagitis; F41.9 Anxiety disorder, unspecified; E03.9 Hypothyroidism, unspecified; E66.9 Obesity, unspecified; Z68.43 Body mass index [BMI] 50.0-59.9, adult; Z87.891 Personal history of nicotine dependence; Z88.8 Allergy status to other drugs, medicaments and biological substances; Z88.1 Allergy status to other antibiotic agents; Z88.2 Allergy status to sulfonamides; Z79.899 Other long term (current) drug therapy
CPT/HCPCS: 36415; 80053; 80306; 81025; 84443; 85025; 90686; 93005; 96372; 99285; A9270; G0008; G0480; J1630; 93010

== ENCOUNTER 2019-07-09 14:13 | Emergency (ER) | payer MEDICARE, MEDICAID ==
[2019-07-09 15:23] VITALS: PULSE 99
[2019-07-09] MEDS ORDERED: risperiDONE 0.5 MG Tab PO ONE (16:22)
--- NOTE | 2019-07-09 16:22 | EDM.PDOCBH ---
<Cortney Burns - Last Filed: 07/09/19 20:32> ED HPI GENERAL MEDICAL PROBLEM - General Chief Complaint: Behavioral/Psych Stated Complaint: SUICIDAL IDEATIONS AND MEDICAL CLEARANCE Time Seen by Provider: 07/09/19 15:40 Source of Information: Reports: Patient, Old Records, RN Notes Reviewed History Limitations: Reports: No Limitations - History of Present Illness INITIAL COMMENTS - FREE TEXT/NARRATIVE: Patient is a 34-year-old female who presents to the ED for suicidal ideations of medical clearance. The patient states she was most recently admitted to inpatient psychiatric care at [facility], but she states she was discharged home after about 2 days, that she started developing suicidal thoughts again. She has been in contact with a person named Cristiana at the [facility], and she did have a tele-psych evaluation today with Dr. Castro. The patient states that she has been having voices present in her head telling her to go out into traffic and get hit by a car, she states that she almost did this yesterday as she walked outside and thought about jumping in front of a car that was passing by. The patient presented to this ER , for the understanding that she needed medical clearance to be admitted to [facility] in [facility]. 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 Castro believe she would benefit from inpatient management again. Cristiana states that she did talk to staff at [facility], and they states that they would need some medical laboratory evaluation before they can admit her as they do not usually admit from a clinic. She states that she talked to at [place] from [facility] today. Otherwise the patient has no sick-like symptoms, she is not complaining of any fevers or chills, nausea or vomiting or diarrhea, or anything otherwise. Of note, it was recommended that the patient be started on 0.5 mg of risperidone twice daily, she should be started at this ER visit. - Related Data Allergies Allergy/AdvReac Type Severity Reaction Status Date / Time cephalexin monohydrate Allergy Rash Verified 07/09/19 15:24 [From Keflex] doxycycline Allergy Rash Verified 07/09/19 15:24 levofloxacin [From Levaquin] Allergy Rash Verified 07/09/19 15:24 lithium Allergy Nausea and Verified 07/09/19 15:24 Vomiting metronidazole [From Flagyl] Allergy Rash Verified 07/09/19 15:24 sulfamethoxazole Allergy Rash Verified 07/09/19 15:24 [From Septra] trimethoprim [From Septra] Allergy Rash Verified 07/09/19 15:24 Home Meds: Home Meds Etonogestrel [Nexplanon] 68 mg SQ ASDIRECTED 08/29/17 [History] Famotidine [Pepcid] 20 mg PO BEDTIME 08/29/17 [History] Levothyroxine [Synthroid] 200 mcg PO ACBREAKFAST 11/16/17 [History] Losartan [Cozaar] 50 mg PO BEDTIME 03/23/18 [History] Pantoprazole Sodium [Protonix] 40 mg PO BID 07/21/18 [History] QUEtiapine Fumarate [Seroquel] 200 mg PO BEDTIME 07/21/18 [History] amLODIPine [Norvasc] 10 mg PO BEDTIME 08/17/18 [History] Lactobacillus Acidophilus [Probiotic Acidophilus] 1 tab PO DAILY 04/22/19 [ History] Ziprasidone HCl [Geodon] 40 mg PO BIDMEALS 04/22/19 [History] hydroCHLOROthiazide [Hydrochlorothiazide] 25 mg PO DAILY 04/22/19 [History] lamoTRIgine [Lamictal] 100 mg PO DAILY 04/22/19 [History] lamoTRIgine [Lamictal] 200 mg PO BEDTIME 04/22/19 [History] DULoxetine [Cymbalta] 60 mg PO DAILY 06/30/19 [History] Past Medical History HEENT History: Reports: Impaired Vision Cardiovascular History: Reports: Hypertension Respiratory History: Reports: Sleep Apnea Gastrointestinal History: Reports: GERD LMP (Approximate): Other (See Below) Other [employer]OR History: on the Depo shot Musculoskeletal History: Reports: Arthritis Psychiatric History: Reports: Anxiety, Bipolar, Depression Endocrine/Metabolic History: Reports: Hypothyroidism, Obesity/BMI 30+ Hematologic History: Reports: Anemia Oncologic (Cancer) History: Reports: Other (See Below) Other Oncologic History: facial - Infectious Disease History Infectious Disease History: Reports: Chicken Pox - Past Surgical History HEENT Surgical History: Reports: Oral Surgery, Tonsillectomy GI Surgical History: Reports: Cholecystectomy Endocrine Surgical History: Reports: Thyroidectomy Social & Family History - Family History Family Medical History: Noncontributory - Tobacco Use Smoking Status *Q: Never Smoker Second Hand Smoke Exposure: No - Caffeine Use Caffeine Use: Reports: None Other Caffeine Use: drinks 2 liters of soda a day - Recreational Drug Use Recreational Drug Use: No - Living Situation & Occupation Living situation: Reports: Single, Alone Occupation: Unemployed ED ROS GENERAL - Review of Systems Review Of Systems: Comprehensive ROS is negative, except as noted in HPI. Psychiatric: Reports: Depression, Hallucinations (auditory), Suicidal Ideation. Denies: Confusion, Cravings, Homicidal Ideation ED EXAM, BEHAVIORAL HEALTH - Physical Exam Exam: See Below Exam Limited By: No Limitations General Appearance: Alert, WD/WN, No Apparent Distress Eye Exam: Bilateral Eye: EOMI, Normal Inspection, PERRL Ears: Normal External Exam Nose: Normal Inspection Throat/Mouth: Normal Inspection, Normal Lips, Normal Teeth, Normal Gums, Normal Oropharynx, Normal Voice, No Airway Compromise Head: Atraumatic, Normocephalic Neck: Normal Inspection Respiratory/Chest: No Respiratory Distress, Lungs Clear, Normal Breath Sounds, No Accessory Muscle Use, Chest Non-Tender Cardiovascular: Normal Peripheral Pulses, Regular Rate, Rhythm, No Edema, No Murmur Extremities: Normal Inspection, Normal Capillary Refill Neurological: Alert, CN II-XII Intact, Normal Gait, No Motor/Sensory Deficits, Oriented x 3 Psychiatric: Alert, Oriented, Depressed Mood, Flat Affect, Withdrawn, Suicidal Plan (Thought about actually jumping into traffic yesterday.), Suicidal Thoughts , Auditory Hallucinations (States that she hears voices that tell her to go up to traffic to jump in front of it.). No: Visual Hallucinations, Paranoid Thoughts Skin Exam: Warm, Dry, Intact, Normal color, No rash COURSE, BEHAVIORAL HEALTH COMP - Course Vital Signs: Last Vital Signs Temp 98 F 07/09/19 15:21 Pulse 99 07/09/19 15:21 Resp 18 07/09/19 15:21 BP 129/79 07/09/19 20:56 Pulse Ox 99 07/09/19 15:21 Orders, Labs, Meds: Active Orders 24 hr Category Date Time Status CULTURE URINE [RM] Routine Lab 07/09/19 15:10 Received QUEtiapine [SEROqueL] Med 07/09/19 20:34 Active 200 mg PO BEDTIME Ziprasidone HCl [Geodon] Med 07/09/19 20:34 Active 40 mg PO BEDTIME Medication Orders Quetiapine Fumarate (Seroquel) 200 mg PO BEDTIME [facility] Last Admin: 07/09/19 21:01 Dose: Not Given Admin: 07/09/19 20:49 Dose: 200 mg Ziprasidone (Geodon) 40 mg PO BEDTIME [facility] Last Admin: 07/09/19 21:01 Dose: Not Given Admin: 07/09/19 20:49 Dose: 40 mg Laboratory Tests 07/09/19 07/09/19 07/09/19 Range/Units 15:10 15:15 15:15 WBC (3.98-10.04) K/mm3 RBC (3.98-5.22) M/mm3 Hgb (11.2-15.7) gm/dl Hct (34.1-44.9) % MCV (79.4-94.8) fl MCH (25.6-32.2) pg MCHC (32.2-35.5) g/dl RDW Std Deviation (36.4-46.3) fL Plt Count (182-369) K/mm3 MPV (9.4-12.3) fl Neut % (Auto) (34.0-71.1) % Lymph % (Auto) (19.3-51.7) % Lincoln % (Auto) (4.7-12.5) % Eos % (Auto) (0.7-5.8) Baso % (Auto) (0.1-1.2) % Neut # (Auto) (1.56-6.13) K/mm3 Lymph # (Auto) (1.18-3.74) K/mm3 Lincoln # (Auto) (0.24-0.36) K/mm3 Eos # (Auto) (0.04-0.36) K/mm3 Baso # (Auto) (0.01-0.08) K/mm3 Sodium (136-145) mEq/L Potassium (3.5-5.1) mEq/L Chloride (98-107) mEq/L Carbon Dioxide (21-32) mEq/L Anion Gap (5-15) BUN (7-18) mg/dL Creatinine (0.55-1.02) mg/dL Est Cr Clr Drug Dosing mL/min Estimated GFR (MDRD) (>60) mL/min BUN/Creatinine Ratio (14-18) Glucose (74-106) mg/dL Calcium (8.5-10.1) mg/dL Total Bilirubin (0.2-1.0) mg/dL AST (15-37) U/L ALT (14-59) U/L Alkaline Phosphatase (46-116) U/L Total Protein (6.4-8.2) g/dl Albumin (3.4-5.0) g/dl Globulin gm/dL Albumin/Globulin Ratio (1-2) TSH 3rd Generation (0.358-3.74) uIU/mL Urine Color Yellow (Yellow) Urine Appearance Clear (Clear) Urine pH 6.0 (5.0-8.0) Ur Specific [place] 1.020 (1.005-1.030) Urine Protein Negative (Negative) Urine Glucose (UA) Negative (Negative) Urine Ketones Negative (Negative) Urine Occult Blood Trace-lysed H (Negative) Urine Nitrite Negative (Negative) Urine Bilirubin Negative (Negative) Urine Urobilinogen 0.2 (0.2-1.0) Ur Leukocyte Esterase 1+ H (Negative) Urine RBC 5-10 H (0-5) /hpf Urine WBC 5-10 H (0-5) /hpf Ur Squamous Epith Cells 5-10 H (0-5) /hpf Urine Bacteria Many H (FEW) /hpf Urine Mucus Few (FEW) /hpf Urine HCG, Qual Negative (NEGATIVE) Salicylates (2.8-20) mg/dL Urine Opiates Screen Negative (AZVZVS=696) Ur Buprenorphine Scrn Negative (CUTOFF=10) Ur Oxycodone Screen Negative (TRM7QT=795) Urine Methadone Screen Negative (JJJUPZ=951) Ur Propoxyphene Screen Negative (CHWYNI=779) Acetaminophen (10-30) ug/mL Ur Barbiturates Screen Negative (MUKYZI=529) Ur Tricyclics Screen Presumptive positive H (ALIFXB=462) Ur Phencyclidine Scrn Negative (CUTOFF=25) Ur Amphetamine Screen Negative (LHFYAJ=953) U Methamphetamines Scrn Negative (SSSJWR=832) U Benzodiazepines Scrn Negative (VRVTYY=713) U Cocaine Metab Screen Negative (TYARQS=675) U Marijuana (THC) Screen Negative (CUTOFF=50) Ethyl Alcohol (0.00) gm% 07/09/19 07/09/19 07/09/19 Range/Units 15:40 15:40 15:40 WBC 9.97 (3.98-10.04) K/mm3 RBC 4.91 (3.98-5.22) M/mm3 Hgb 12.9 (11.2-15.7) gm/dl Hct 40.2 (34.1-44.9) % MCV 81.9 (79.4-94.8) fl MCH 26.3 (25.6-32.2) pg MCHC 32.1 L (32.2-35.5) g/dl RDW Std Deviation 42.0 (36.4-46.3) fL Plt Count 453 H (182-369) K/mm3 MPV 8.9 L (9.4-12.3) fl Neut % (Auto) 60.5 (34.0-71.1) % Lymph % (Auto) 26.0 (19.3-51.7) % Lincoln % (Auto) 9.6 (4.7-12.5) % Eos % (Auto) 3.1 (0.7-5.8) Baso % (Auto) 0.5 (0.1-1.2) % Neut # (Auto) 6.03 (1.56-6.13) K/mm3 Lymph # (Auto) 2.59 (1.18-3.74) K/mm3 Lincoln # (Auto) 0.96 H (0.24-0.36) K/mm3 Eos # (Auto) 0.31 (0.04-0.36) K/mm3 Baso # (Auto) 0.05 (0.01-0.08) K/mm3 Sodium 137 (136-145) mEq/L Potassium 3.3 L (3.5-5.1) mEq/L Chloride 101 (98-107) mEq/L Carbon Dioxide 26 (21-32) mEq/L Anion Gap 13.3 (5-15) BUN 15 (7-18) mg/dL Creatinine 1.1 H (0.55-1.02) mg/dL Est Cr Clr Drug Dosing 70.08 mL/min Estimated GFR (MDRD) 57 (>60) mL/min BUN/Creatinine Ratio 13.6 L (14-18) Glucose 89 (74-106) mg/dL Calcium 9.1 (8.5-10.1) mg/dL Total Bilirubin 0.4 (0.2-1.0) mg/dL AST 14 L (15-37) U/L ALT 30 (14-59) U/L Alkaline Phosphatase 108 (46-116) U/L Total Protein 7.5 (6.4-8.2) g/dl Albumin 3.6 (3.4-5.0) g/dl Globulin 3.9 gm/dL Albumin/Globulin Ratio 0.9 L (1-2) TSH 3rd Generation 0.250 L (0.358-3.74) uIU/mL Urine Color (Yellow) Urine Appearance (Clear) Urine pH (5.0-8.0) Ur Specific [place] (1.005-1.030) Urine Protein (Negative) Urine Glucose (UA) (Negative) Urine Ketones (Negative) Urine Occult Blood (Negative) Urine Nitrite (Negative) Urine Bilirubin (Negative) Urine Urobilinogen (0.2-1.0) Ur Leukocyte Esterase (Negative) Urine RBC (0-5) /hpf Urine WBC (0-5) /hpf Ur Squamous Epith Cells (0-5) /hpf Urine Bacteria (FEW) /hpf Urine Mucus (FEW) /hpf Urine HCG, Qual (NEGATIVE) Salicylates (2.8-20) mg/dL Urine Opiates Screen (UBLNHN=639) Ur Buprenorphine Scrn (CUTOFF=10) Ur Oxycodone Screen (BAL4EJ=915) Urine Methadone Screen (DEOBAK=768) Ur Propoxyphene Screen (XGJWYQ=508) Acetaminophen 0 L (10-30) ug/mL Ur Barbiturates Screen (DREWUC=443) Ur Tricyclics Screen (XSUDDF=135) Ur Phencyclidine Scrn (CUTOFF=25) Ur Amphetamine Screen (XEQKPF=153) U Methamphetamines Scrn (SDSWPW=829) U Benzodiazepines Scrn (OENXWF=842) U Cocaine Metab Screen (UGIXWP=860) U Marijuana (THC) Screen (CUTOFF=50) Ethyl Alcohol 0.00 (0.00) gm% 07/09/19 Range/Units 15:40 WBC (3.98-10.04) K/mm3 RBC (3.98-5.22) M/mm3 Hgb (11.2-15.7) gm/dl Hct (34.1-44.9) % MCV (79.4-94.8) fl MCH (25.6-32.2) pg MCHC (32.2-35.5) g/dl RDW Std Deviation (36.4-46.3) fL Plt Count (182-369) K/mm3 MPV (9.4-12.3) fl Neut % (Auto) (34.0-71.1) % Lymph % (Auto) (19.3-51.7) % Lincoln % (Auto) (4.7-12.5) % Eos % (Auto) (0.7-5.8) Baso % (Auto) (0.1-1.2) % Neut # (Auto) (1.56-6.13) K/mm3 Lymph # (Auto) (1.18-3.74) K/mm3 Lincoln # (Auto) (0.24-0.36) K/mm3 Eos # (Auto) (0.04-0.36) K/mm3 Baso # (Auto) (0.01-0.08) K/mm3 Sodium (136-145) mEq/L Potassium (3.5-5.1) mEq/L Chloride (98-107) mEq/L Carbon Dioxide (21-32) mEq/L Anion Gap (5-15) BUN (7-18) mg/dL Creatinine (0.55-1.02) mg/dL Est Cr Clr Drug Dosing mL/min Estimated GFR (MDRD) (>60) mL/min BUN/Creatinine Ratio (14-18) Glucose (74-106) mg/dL Calcium (8.5-10.1) mg/dL Total Bilirubin (0.2-1.0) mg/dL AST (15-37) U/L ALT (14-59) U/L Alkaline Phosphatase (46-116) U/L Total Protein (6.4-8.2) g/dl Albumin (3.4-5.0) g/dl Globulin gm/dL Albumin/Globulin Ratio (1-2) TSH 3rd Generation (0.358-3.74) uIU/mL Urine Color (Yellow) Urine Appearance (Clear) Urine pH (5.0-8.0) Ur Specific [place] (1.005-1.030) Urine Protein (Negative) Urine Glucose (UA) (Negative) Urine Ketones (Negative) Urine Occult Blood (Negative) Urine Nitrite (Negative) Urine Bilirubin (Negative) Urine Urobilinogen (0.2-1.0) Ur Leukocyte Esterase (Negative) Urine RBC (0-5) /hpf Urine WBC (0-5) /hpf Ur Squamous Epith Cells (0-5) /hpf Urine Bacteria (FEW) /hpf Urine Mucus (FEW) /hpf Urine HCG, Qual (NEGATIVE) Salicylates 1.0 L (2.8-20) mg/dL Urine Opiates Screen (SZGZRP=798) Ur Buprenorphine Scrn (CUTOFF=10) Ur Oxycodone Screen (EOI8XY=841) Urine Methadone Screen (RIWWKR=759) Ur Propoxyphene Screen (SJUKPZ=725) Acetaminophen (10-30) ug/mL Ur Barbiturates Screen (MNKWPB=146) Ur Tricyclics Screen (ZZVCNV=985) Ur Phencyclidine Scrn (CUTOFF=25) Ur Amphetamine Screen (CXPTOT=098) U Methamphetamines Scrn (JHJZFH=045) U Benzodiazepines Scrn (VGLIYF=358) U Cocaine Metab Screen (HXUSMF=413) U Marijuana (THC) Screen (CUTOFF=50) Ethyl Alcohol (0.00) gm% Medications Generic Name Dose Route Start Last Admin Trade Name Freq PRN Reason Stop Dose Admin Quetiapine Fumarate 200 mg 07/09/19 20:34 07/09/19 21:01 Seroquel PO Not Given BEDTIME FRANCESCO Ziprasidone 40 mg 07/09/19 20:34 07/09/19 21:01 Geodon PO Not Given BEDTIME FRANCESCO Discontinued Medications Generic Name Dose Route Start Last Admin Trade Name Freq PRN Reason Stop Dose Admin Amlodipine Besylate 10 mg 07/09/19 20:34 07/09/19 20:56 Norvasc PO 07/09/19 20:35 10 mg ONETIME ONE Administration Famotidine 20 mg 07/09/19 20:37 07/09/19 20:49 Pepcid PO 07/09/19 20:38 20 mg ONETIME ONE Administration Lamotrigine 200 mg 07/09/19 20:33 07/09/19 20:49 Lamotrigine PO 07/09/19 20:34 200 mg ONETIME ONE Administration Losartan Potassium 50 mg 07/09/19 20:36 07/09/19 20:55 Cozaar PO 07/09/19 20:37 50 mg DAILY ONE Administration Risperidone 0.5 mg 07/09/19 16:22 07/09/19 16:42 Risperidal PO 07/09/19 16:23 0.5 mg ONETIME ONE Administration Risperidone 0.5 mg 07/10/19 03:46 Risperidal PO 07/10/19 03:47 ONETIME ONE Discharge vs Psych Eval/Treatment:: 07/09/19 16:57 Patient presents to the ED for evaluation of suicidal ideations and medical clearance. I was able to talk with Cristiana at the [facility]. It sounds as if Dr. Castro, the tele-psych provider wanted her to be admitted to [facility] for further evaluation, however the staff at [facility] stated they do not usually take patients from clinics, and recommended that she be evaluated by the ER for medical clearance, i.e. labs. They specified that they needed a certain about of labs, and the patient should be started on 0.5 mg of risperidone twice daily. I did order psych clearance labs for further evaluation, and will fax these to [facility] after having a talk with their provider. 07/09/19 20:32 Labs did not demonstrate any acute abnormalities, I did call [facility] for possible admission, they stated that they would give us a call back after they a chance to review the labs, facesheet for the patient. At this time the patient was requesting her nighttime medications for management, I will order these for her. 07/09/19 22:35 I did call [facility], they have not had a chance to review her labs or other documents and they state it will be a few hours, as they are busy as well. I will discuss the case with Dr. Lewis and hope that the patient's stepfather will still take her in the AM. Departure - Departure Time of Disposition: 22:43 Disposition: DC/Tfer to Psych Hosp/Unit 65 Condition: Fair Clinical Impression: Suicidal ideations - Discharge Information *PRESCRIPTION DRUG MONITORING PROGRAM REVIEWED*: No *COPY OF PRESCRIPTION DRUG MONITORING REPORT IN PATIENT JENNIFER: No Referrals: Angie Gleason NP [Primary Care Provider] - Forms: ED Department Discharge Additional Instructions: Follow up with your psychiatrist tomorrow. Please return if you are worse. Sepsis Event Note - Evaluation Sepsis Screening Result: No Definite Risk - Focused Exam Vital Signs: Vital Signs BP 07/09/19 20:56 129/79 07/09/19 20:55 129/79 Date Exam was Performed: 07/09/19 Time Exam was Performed: 20:32 <Corey Lewis - Last Filed: 07/10/19 03:54> COURSE, BEHAVIORAL HEALTH COMP - Course Discharge vs Psych Eval/Treatment:: 07/10/19 03:52 Taking over for Kelsey. Candy Becerra called back after the patient was here 11 hours and they did not think she met inpatient criteria. Mom called and she asked if she can take the patient home and I did ordered another dose of risperidone. I will discharge her to her mom. Sepsis Event Note - Focused Exam Date Exam was Performed: 07/10/19 Time Exam was Performed: 03:52
[2019-07-09] MEDS ORDERED: lamoTRIgine 100 MG Tab PO ONE (20:33)
[2019-07-09] MEDS ORDERED: amLODIPine 10 MG Tab PO ONE (20:34)
[2019-07-09] MEDS ORDERED: Losartan 25 MG Tab PO ONE (20:36)
[2019-07-09] MEDS ORDERED: Famotidine 20 MG Tab PO ONE (20:37)
[2019-07-09] MEDS: Ziprasidone HCl 20 MG Cap PO SCH ×2 (20:49→21:01)
[2019-07-09] MEDS: QUEtiapine 100 MG Tab PO SCH ×2 (20:49→21:01)
[2019-07-09 20:56] VITALS: BP 129/79
[2019-07-10] MEDS ORDERED: risperiDONE 0.5 MG Tab PO ONE (03:46)
== END 2019-07-10 05:02 ==
LOC: JD.ED 14:13
DX: R45.851 Suicidal ideations (principal); I10 Essential (primary) hypertension; E03.9 Hypothyroidism, unspecified; K21.9 Gastro-esophageal reflux disease without esophagitis; F41.9 Anxiety disorder, unspecified; F31.9 Bipolar disorder, unspecified; E66.9 Obesity, unspecified; Z68.43 Body mass index [BMI] 50.0-59.9, adult; Z88.1 Allergy status to other antibiotic agents; Z88.8 Allergy status to other drugs, medicaments and biological substances; Z79.899 Other long term (current) drug therapy; Z79.890 Hormone replacement therapy
CPT/HCPCS: 36415; 80053; 80306; 81001; 81025; 84443; 85025; 87086; 99285; A9270; G0480

== ENCOUNTER 2019-07-13 21:36 | Emergency (ER) | payer MEDICARE, MEDICAID ==
--- NOTE | 2019-07-13 21:50 | EDM.PDOCBH ---
ED HPI GENERAL MEDICAL PROBLEM - General Chief Complaint: Behavioral/Psych Stated Complaint: [facility] Time Seen by Provider: 07/13/19 21:36 - History of Present Illness INITIAL COMMENTS - FREE TEXT/NARRATIVE: 34-year-old female presents the emergency room with suicidal thoughts and acetaminophen ingestion. Patient states she took 20 500 mg Tylenol tablets shortly before arrival her mother brings her in. She admits to being suicidal says her plan is to take pills. Patient has an extensive history of bipolar disease she has had episodes of psychosis in the past. And multiple evaluations for suicidal ideation. Patient denies any fevers or chills denies any illicit drugs or alcohol. She adamantly admits to being suicidal at this time - Related Data Allergies Allergy/AdvReac Type Severity Reaction Status Date / Time cephalexin monohydrate Allergy Rash Verified 07/13/19 21:41 [From Keflex] doxycycline Allergy Rash Verified 07/13/19 21:41 levofloxacin [From Levaquin] Allergy Rash Verified 07/13/19 21:41 lithium Allergy Nausea and Verified 07/13/19 21:41 Vomiting metronidazole [From Flagyl] Allergy Rash Verified 07/13/19 21:41 sulfamethoxazole Allergy Rash Verified 07/13/19 21:41 [From Septra] trimethoprim [From Septra] Allergy Rash Verified 07/13/19 21:41 Home Meds: Home Meds Etonogestrel [Nexplanon] 68 mg SQ ASDIRECTED 08/29/17 [History] Famotidine [Pepcid] 20 mg PO BEDTIME 08/29/17 [History] Levothyroxine [Synthroid] 200 mcg PO ACBREAKFAST 11/16/17 [History] Losartan [Cozaar] 50 mg PO BEDTIME 03/23/18 [History] Pantoprazole Sodium [Protonix] 40 mg PO BID 07/21/18 [History] QUEtiapine Fumarate [Seroquel] 200 mg PO BEDTIME 07/21/18 [History] amLODIPine [Norvasc] 10 mg PO BEDTIME 08/17/18 [History] Lactobacillus Acidophilus [Probiotic Acidophilus] 1 tab PO DAILY 04/22/19 [ History] Ziprasidone HCl [Geodon] 40 mg PO BIDMEALS 04/22/19 [History] hydroCHLOROthiazide [Hydrochlorothiazide] 25 mg PO DAILY 04/22/19 [History] lamoTRIgine [Lamictal] 100 mg PO DAILY 04/22/19 [History] lamoTRIgine [Lamictal] 200 mg PO BEDTIME 04/22/19 [History] DULoxetine [Cymbalta] 60 mg PO DAILY 06/30/19 [History] Past Medical History HEENT History: Reports: Impaired Vision Cardiovascular History: Reports: Hypertension Respiratory History: Reports: Sleep Apnea Gastrointestinal History: Reports: GERD 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 Musculoskeletal History: Reports: Arthritis Psychiatric History: Reports: Anxiety, Bipolar, Depression, Hallucinations, Suicide Attempt, Suicidal Ideation Endocrine/Metabolic History: Reports: Hypothyroidism, Obesity/BMI 30+ Hematologic History: Reports: Anemia Other Hematologic History: elevated right WBC Oncologic (Cancer) History: Reports: Other (See Below) Other Oncologic History: facial - Infectious Disease History Infectious Disease History: Reports: Chicken Pox - Past Surgical History HEENT Surgical History: Reports: Oral Surgery, Tonsillectomy GI Surgical History: Reports: Cholecystectomy Endocrine Surgical History: Reports: Thyroidectomy Social & Family History - Family History Family Medical History: Noncontributory - Tobacco Use Smoking Status *Q: Never Smoker Second Hand Smoke Exposure: No - Caffeine Use Caffeine Use: Reports: Soda Other Caffeine Use: drinks 2 liters of soda a day - Recreational Drug Use Recreational Drug Use: No - Living Situation & Occupation Living situation: Reports: Single, Alone Occupation: Unemployed ED ROS GENERAL - Review of Systems Review Of Systems: See Below Constitutional: Denies: Fever, Chills HEENT: Reports: No Symptoms Respiratory: Reports: No Symptoms Cardiovascular: Reports: No Symptoms GI/Abdominal: Reports: No Symptoms : Reports: No Symptoms Musculoskeletal: Reports: No Symptoms Skin: Reports: No Symptoms Neurological: Reports: No Symptoms Psychiatric: Reports: Suicidal Ideation. Denies: Hallucinations, Homicidal Ideation Hematologic/Lymphatic: Reports: No Symptoms Immunologic: Reports: No Symptoms ED EXAM, BEHAVIORAL HEALTH - Physical Exam Exam: See Below Exam Limited By: No Limitations General Appearance: Alert, No Apparent Distress, Other (Initially tachycardic but her pulse rate came down by the time of my exam) Eye Exam: Bilateral Eye: Normal Inspection Ears: Normal External Exam, Normal Canal, Hearing Grossly Normal, Normal TMs Nose: Normal Inspection, Normal Mucosa, No Blood Throat/Mouth: Normal Inspection, Normal Lips, Normal Gums, Normal Oropharynx, Normal Voice, No Airway Compromise Head: Atraumatic, Normocephalic Neck: Normal Inspection, Supple, Non-Tender, Full Range of Motion. No: Lymphadenopathy (L), Lymphadenopathy (R) Respiratory/Chest: No Respiratory Distress, Lungs Clear, Normal Breath Sounds Cardiovascular: Regular Rate, Rhythm, No Murmur, Other (She has very heavy legs some edema could be present.) GI/Abdominal: Normal Bowel Sounds, Soft, Non-Tender, Other (Orbit obesity) Back Exam: Normal Inspection. No: CVA Tenderness (L), CVA Tenderness (R) Extremities: Other (With the patient's obesity she is got very thick legs no pitting) Neurological: Alert, CN II-XII Intact Psychiatric: Suicidal Thoughts COURSE, BEHAVIORAL HEALTH COMP - Course Vital Signs: Last Vital Signs Temp 36.4 C 07/14/19 04:41 Pulse 75 07/14/19 04:41 Resp 16 07/14/19 04:41 BP 139/65 07/14/19 04:41 Pulse Ox 97 07/14/19 04:41 Orders, Labs, Meds: Active Orders 24 hr Category Date Time Status EKG Documentation Completion [RC] STAT Care 07/13/19 22:28 Active CULTURE URINE [RM] Stat Lab 07/13/19 23:11 Received Laboratory Tests 07/13/19 07/13/19 07/13/19 Range/Units 22:50 22:50 22:50 WBC 12.01 H (3.98-10.04) K/mm3 RBC 4.98 (3.98-5.22) M/mm3 Hgb 13.3 (11.2-15.7) gm/dl Hct 40.5 (34.1-44.9) % MCV 81.3 (79.4-94.8) fl MCH 26.7 (25.6-32.2) pg MCHC 32.8 (32.2-35.5) g/dl RDW Std Deviation 42.3 (36.4-46.3) fL Plt Count 454 H (182-369) K/mm3 MPV 8.7 L (9.4-12.3) fl Neut % (Auto) 61.2 (34.0-71.1) % Lymph % (Auto) 25.5 (19.3-51.7) % [place] % (Auto) 9.5 (4.7-12.5) % Eos % (Auto) 2.7 (0.7-5.8) Baso % (Auto) 0.6 (0.1-1.2) % Neut # (Auto) 7.35 H (1.56-6.13) K/mm3 Lymph # (Auto) 3.06 (1.18-3.74) K/mm3 [place] # (Auto) 1.14 H (0.24-0.36) K/mm3 Eos # (Auto) 0.33 (0.04-0.36) K/mm3 Baso # (Auto) 0.07 (0.01-0.08) K/mm3 Manual Slide Review Normal smear PT 10.6 (9.7-12.0) SECONDS INR 0.97 Sodium 141 (136-145) mEq/L Potassium 3.9 (3.5-5.1) mEq/L Chloride 105 (98-107) mEq/L Carbon Dioxide 26 (21-32) mEq/L Anion Gap 13.9 (5-15) BUN 19 H (7-18) mg/dL Creatinine 1.4 H (0.55-1.02) mg/dL Est Cr Clr Drug Dosing 57.12 mL/min Estimated GFR (MDRD) 43 (>60) mL/min BUN/Creatinine Ratio 13.6 L (14-18) Glucose 105 (74-106) mg/dL Calcium 9.4 (8.5-10.1) mg/dL Total Bilirubin 0.4 (0.2-1.0) mg/dL AST 14 L (15-37) U/L ALT 33 (14-59) U/L Alkaline Phosphatase 114 (46-116) U/L Total Protein 7.8 (6.4-8.2) g/dl Albumin 3.7 (3.4-5.0) g/dl Globulin 4.1 gm/dL Albumin/Globulin Ratio 0.9 L (1-2) TSH 3rd Generation (0.358-3.74) uIU/mL Urine Color (Yellow) Urine Appearance (Clear) Urine pH (5.0-8.0) Ur Specific Slater (1.005-1.030) Urine Protein (Negative) Urine Glucose (UA) (Negative) Urine Ketones (Negative) Urine Occult Blood (Negative) Urine Nitrite (Negative) Urine Bilirubin (Negative) Urine Urobilinogen (0.2-1.0) Ur Leukocyte Esterase (Negative) Urine RBC (0-5) /hpf Urine WBC (0-5) /hpf Ur Epithelial Cells (0-5) /hpf Urine Bacteria (FEW) /hpf Urine Mucus (FEW) /hpf Urine HCG, Qual (NEGATIVE) Salicylates (2.8-20) mg/dL Urine Opiates Screen (PZWCNH=534) Ur Buprenorphine Scrn (CUTOFF=10) Ur Oxycodone Screen (KCQ6TT=335) Urine Methadone Screen (KZLKZM=720) Ur Propoxyphene Screen (GNXIXC=926) Acetaminophen 0 L (10-30) ug/mL Ur Barbiturates Screen (UGFCKW=540) Ur Tricyclics Screen (TECGSH=030) Ur Phencyclidine Scrn (CUTOFF=25) Ur Amphetamine Screen (PUXVXB=213) U Methamphetamines Scrn (XFKNQT=162) U Benzodiazepines Scrn (UQVWHU=426) U Cocaine Metab Screen (ZBNPCS=195) U Marijuana (THC) Screen (CUTOFF=50) Ethyl Alcohol 0.00 (0.00) gm% 07/13/19 07/13/19 07/13/19 Range/Units 22:50 23:11 23:11 WBC (3.98-10.04) K/mm3 RBC (3.98-5.22) M/mm3 Hgb (11.2-15.7) gm/dl Hct (34.1-44.9) % MCV (79.4-94.8) fl MCH (25.6-32.2) pg MCHC (32.2-35.5) g/dl RDW Std Deviation (36.4-46.3) fL Plt Count (182-369) K/mm3 MPV (9.4-12.3) fl Neut % (Auto) (34.0-71.1) % Lymph % (Auto) (19.3-51.7) % [place] % (Auto) (4.7-12.5) % Eos % (Auto) (0.7-5.8) Baso % (Auto) (0.1-1.2) % Neut # (Auto) (1.56-6.13) K/mm3 Lymph # (Auto) (1.18-3.74) K/mm3 [place] # (Auto) (0.24-0.36) K/mm3 Eos # (Auto) (0.04-0.36) K/mm3 Baso # (Auto) (0.01-0.08) K/mm3 Manual Slide Review PT (9.7-12.0) SECONDS INR Sodium (136-145) mEq/L Potassium (3.5-5.1) mEq/L Chloride (98-107) mEq/L Carbon Dioxide (21-32) mEq/L Anion Gap (5-15) BUN (7-18) mg/dL Creatinine (0.55-1.02) mg/dL Est Cr Clr Drug Dosing mL/min Estimated GFR (MDRD) (>60) mL/min BUN/Creatinine Ratio (14-18) Glucose (74-106) mg/dL Calcium (8.5-10.1) mg/dL Total Bilirubin (0.2-1.0) mg/dL AST (15-37) U/L ALT (14-59) U/L Alkaline Phosphatase (46-116) U/L Total Protein (6.4-8.2) g/dl Albumin (3.4-5.0) g/dl Globulin gm/dL Albumin/Globulin Ratio (1-2) TSH 3rd Generation (0.358-3.74) uIU/mL Urine Color Yellow (Yellow) Urine Appearance Slt cloudy H (Clear) Urine pH 6.5 (5.0-8.0) Ur Specific Slater 1.025 (1.005-1.030) Urine Protein 1+ H (Negative) Urine Glucose (UA) Negative (Negative) Urine Ketones Negative (Negative) Urine Occult Blood 1+ H (Negative) Urine Nitrite Negative (Negative) Urine Bilirubin Negative (Negative) Urine Urobilinogen 0.2 (0.2-1.0) Ur Leukocyte Esterase 1+ H (Negative) Urine RBC 10-20 H (0-5) /hpf Urine WBC 5-10 H (0-5) /hpf Ur Epithelial Cells 5-10 H (0-5) /hpf Urine Bacteria Many H (FEW) /hpf Urine Mucus Few (FEW) /hpf Urine HCG, Qual Negative (NEGATIVE) Salicylates 0.6 L (2.8-20) mg/dL Urine Opiates Screen (SZWMLJ=357) Ur Buprenorphine Scrn (CUTOFF=10) Ur Oxycodone Screen (MAA3ZG=010) Urine Methadone Screen (HBDOQO=165) Ur Propoxyphene Screen (BGCOIR=215) Acetaminophen (10-30) ug/mL Ur Barbiturates Screen (UEEZXB=898) Ur Tricyclics Screen (MGUKEA=122) Ur Phencyclidine Scrn (CUTOFF=25) Ur Amphetamine Screen (FFWGOS=886) U Methamphetamines Scrn (EFPTVV=353) U Benzodiazepines Scrn (QSSRCJ=558) U Cocaine Metab Screen (ZCFOUV=766) U Marijuana (THC) Screen (CUTOFF=50) Ethyl Alcohol (0.00) gm% 07/13/19 07/14/19 07/14/19 Range/Units 23:11 01:58 01:58 WBC (3.98-10.04) K/mm3 RBC (3.98-5.22) M/mm3 Hgb (11.2-15.7) gm/dl Hct (34.1-44.9) % MCV (79.4-94.8) fl MCH (25.6-32.2) pg MCHC (32.2-35.5) g/dl RDW Std Deviation (36.4-46.3) fL Plt Count (182-369) K/mm3 MPV (9.4-12.3) fl Neut % (Auto) (34.0-71.1) % Lymph % (Auto) (19.3-51.7) % [place] % (Auto) (4.7-12.5) % Eos % (Auto) (0.7-5.8) Baso % (Auto) (0.1-1.2) % Neut # (Auto) (1.56-6.13) K/mm3 Lymph # (Auto) (1.18-3.74) K/mm3 [place] # (Auto) (0.24-0.36) K/mm3 Eos # (Auto) (0.04-0.36) K/mm3 Baso # (Auto) (0.01-0.08) K/mm3 Manual Slide Review PT (9.7-12.0) SECONDS INR Sodium (136-145) mEq/L Potassium (3.5-5.1) mEq/L Chloride (98-107) mEq/L Carbon Dioxide (21-32) mEq/L Anion Gap (5-15) BUN (7-18) mg/dL Creatinine (0.55-1.02) mg/dL Est Cr Clr Drug Dosing mL/min Estimated GFR (MDRD) (>60) mL/min BUN/Creatinine Ratio (14-18) Glucose (74-106) mg/dL Calcium (8.5-10.1) mg/dL Total Bilirubin (0.2-1.0) mg/dL AST (15-37) U/L ALT (14-59) U/L Alkaline Phosphatase (46-116) U/L Total Protein (6.4-8.2) g/dl Albumin (3.4-5.0) g/dl Globulin gm/dL Albumin/Globulin Ratio (1-2) TSH 3rd Generation 1.368 (0.358-3.74) uIU/mL Urine Color (Yellow) Urine Appearance (Clear) Urine pH (5.0-8.0) Ur Specific Slater (1.005-1.030) Urine Protein (Negative) Urine Glucose (UA) (Negative) Urine Ketones (Negative) Urine Occult Blood (Negative) Urine Nitrite (Negative) Urine Bilirubin (Negative) Urine Urobilinogen (0.2-1.0) Ur Leukocyte Esterase (Negative) Urine RBC (0-5) /hpf Urine WBC (0-5) /hpf Ur Epithelial Cells (0-5) /hpf Urine Bacteria (FEW) /hpf Urine Mucus (FEW) /hpf Urine HCG, Qual (NEGATIVE) Salicylates (2.8-20) mg/dL Urine Opiates Screen Negative (FOADMX=802) Ur Buprenorphine Scrn Negative (CUTOFF=10) Ur Oxycodone Screen Negative (WFM0QK=108) Urine Methadone Screen Negative (EVTENY=555) Ur Propoxyphene Screen Negative (SZDASV=203) Acetaminophen 10 (10-30) ug/mL Ur Barbiturates Screen Negative (ELBCQM=196) Ur Tricyclics Screen Presumptive positive H (BGVNCY=203) Ur Phencyclidine Scrn Negative (CUTOFF=25) Ur Amphetamine Screen Negative (RDYFNJ=297) U Methamphetamines Scrn Negative (FWQFGO=866) U Benzodiazepines Scrn Negative (QFDHKO=290) U Cocaine Metab Screen Negative (VOTWOX=472) U Marijuana (THC) Screen Negative (CUTOFF=50) Ethyl Alcohol (0.00) gm% Medical Clearance: 07/14/19 05:32 Patient is cleared. Patient was evaluated by Noni from [facility] and the patient is accepted into their crisis bed. Departure - Departure Time of Disposition: 05:33 Disposition: DC/Tfer to Psych Hosp/Unit 65 Clinical Impression: Suicidal ideation - Discharge Information Referrals: PCP,Unknown [Ordering Only Provider] - Forms: ED Department Discharge Additional Instructions: Return to emergency room with any questions problems or worsening symptoms. Continue your routine medications Sepsis Event Note - Evaluation Sepsis Screening Result: No Definite Risk - Focused Exam Vital Signs: Vital Signs Temp Pulse Resp BP Pulse Ox 07/14/19 04:41 36.4 C 75 16 139/65 97 07/13/19 21:40 36.8 C 123 H 15 152/82 H 97 Date Exam was Performed: 07/14/19 Time Exam was Performed: 05:58 - My Orders Last 24 Hours: My Active Orders 07/13/19 22:28 EKG Documentation Completion [RC] STAT 07/13/19 23:11 CULTURE URINE [RM] Stat - Assessment/Plan Last 24 Hours: My Active Orders 07/13/19 22:28 EKG Documentation Completion [RC] STAT 07/13/19 23:11 CULTURE URINE [RM] Stat
[2019-07-14 04:41] VITALS: BP 139/65; PULSE 75
== END 2019-07-14 06:10 ==
LOC: JD.ED 21:36
DX: T39.1X2A Poisoning by 4-Aminophenol derivatives, intentional self-harm, initial encounter (principal); F31.9 Bipolar disorder, unspecified; Z79.899 Other long term (current) drug therapy; K21.9 Gastro-esophageal reflux disease without esophagitis; I10 Essential (primary) hypertension; E66.9 Obesity, unspecified; Z68.43 Body mass index [BMI] 50.0-59.9, adult; Z88.2 Allergy status to sulfonamides; Z88.1 Allergy status to other antibiotic agents; E03.9 Hypothyroidism, unspecified
CPT/HCPCS: 36415; 80053; 80306; 81001; 81025; 84443; 85025; 85610; 87086; 93005; 99285; G0480; 93010; 99283

== ENCOUNTER 2019-07-21 21:54 | Emergency (ER) | payer MEDICARE, MEDICAID ==
--- NOTE | 2019-07-21 22:32 | EDM.PDOCBH ---
ED HPI GENERAL MEDICAL PROBLEM - General Chief Complaint: Behavioral/Psych Stated Complaint: SUICIDAL THOUGHTS Time Seen by Provider: 07/21/19 22:12 Source of Information: Reports: Patient, Old Records, RN Notes Reviewed History Limitations: Reports: No Limitations - History of Present Illness INITIAL COMMENTS - FREE TEXT/NARRATIVE: Patient is a 34-year-old female who presents to the ED for the evaluation of suicidal ideations. The patient states she has been hearing voices for the last 3 weeks now, telling her to go outdoors and get hit by a car. She states that she often thinks about doing it. The patient most recently had a suicide attempt on 07/13/2019, for which she states she took about 20 Tylenol pills. She was evaluated in this ER at that time, her Tylenol level was normal so she was discharged to the crisis bed at the [facility]. She has been residing there since then and states that she attends group therapy during the daytime. The patient has been making comments about leaving and walking in front of a car. At this time [facility] is not a locked unit so they sent her here for further evaluation. Patient did take her Seroquel and Geodon as prescribed this morning. Patient denies any other drug use, as she states she has been [facility] and has not had access to anything , she also states that she doesn't do that kind of stuff. She denies any other sick-like symptoms. Her psychiatrist is Dr. Castro. - Related Data Allergies Allergy/AdvReac Type Severity Reaction Status Date / Time cephalexin monohydrate Allergy Rash Verified 07/13/19 21:41 [From Keflex] doxycycline Allergy Rash Verified 07/13/19 21:41 levofloxacin [From Levaquin] Allergy Rash Verified 07/13/19 21:41 lithium Allergy Nausea and Verified 07/13/19 21:41 Vomiting metronidazole [From Flagyl] Allergy Rash Verified 07/13/19 21:41 sulfamethoxazole Allergy Rash Verified 07/13/19 21:41 [From Septra] trimethoprim [From Septra] Allergy Rash Verified 07/13/19 21:41 Home Meds: Home Meds Etonogestrel [Nexplanon] 68 mg SQ ASDIRECTED 08/29/17 [History] Famotidine [Pepcid] 20 mg PO BEDTIME 08/29/17 [History] Levothyroxine [Synthroid] 200 mcg PO ACBREAKFAST 11/16/17 [History] Losartan [Cozaar] 50 mg PO BEDTIME 03/23/18 [History] Pantoprazole Sodium [Protonix] 40 mg PO BID 07/21/18 [History] QUEtiapine Fumarate [Seroquel] 200 mg PO BEDTIME 07/21/18 [History] amLODIPine [Norvasc] 10 mg PO BEDTIME 08/17/18 [History] Lactobacillus Acidophilus [Probiotic Acidophilus] 1 tab PO DAILY 04/22/19 [ History] Ziprasidone HCl [Geodon] 40 mg PO BIDMEALS 04/22/19 [History] hydroCHLOROthiazide [Hydrochlorothiazide] 25 mg PO DAILY 04/22/19 [History] lamoTRIgine [Lamictal] 100 mg PO DAILY 04/22/19 [History] lamoTRIgine [Lamictal] 200 mg PO BEDTIME 04/22/19 [History] DULoxetine [Cymbalta] 60 mg PO DAILY 06/30/19 [History] Past Medical History HEENT History: Reports: Impaired Vision Cardiovascular History: Reports: Hypertension Respiratory History: Reports: Sleep Apnea Gastrointestinal History: Reports: GERD 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 Musculoskeletal History: Reports: Arthritis Psychiatric History: Reports: Anxiety, Bipolar, Depression, Hallucinations, Suicide Attempt, Suicidal Ideation Endocrine/Metabolic History: Reports: Hypothyroidism, Obesity/BMI 30+ Hematologic History: Reports: Anemia Other Hematologic History: elevated right WBC Oncologic (Cancer) History: Reports: Other (See Below) Other Oncologic History: facial - Infectious Disease History Infectious Disease History: Reports: Chicken Pox - Past Surgical History HEENT Surgical History: Reports: Oral Surgery, Tonsillectomy GI Surgical History: Reports: Cholecystectomy Endocrine Surgical History: Reports: Thyroidectomy Social & Family History - Family History Family Medical History: Noncontributory - Tobacco Use Smoking Status *Q: Never Smoker - Caffeine Use Caffeine Use: Reports: Soda Other Caffeine Use: drinks 2 liters of soda a day - Recreational Drug Use Recreational Drug Use: No - Living Situation & Occupation Living situation: Reports: Single, Alone Occupation: Unemployed ED ROS GENERAL - Review of Systems Review Of Systems: See Below Constitutional: Denies: Fever, Chills Respiratory: Denies: Shortness of Breath Cardiovascular: Denies: Chest Pain GI/Abdominal: Denies: Abdominal Pain, Diarrhea, Nausea, Vomiting : Denies: Dysuria, Frequency, Urgency Psychiatric: Reports: Depression, Hallucinations (auditory), Suicidal Ideation ( hearing voices tell her to jump in front of oncoming traffic and has thought about doing so.). Denies: Homicidal Ideation ED EXAM, BEHAVIORAL HEALTH - Physical Exam Exam: See Below Exam Limited By: No Limitations General Appearance: Alert, WD/WN, No Apparent Distress Eye Exam: Bilateral Eye: EOMI, Normal Inspection, PERRL Throat/Mouth: Normal Inspection, Normal Lips, Normal Teeth, Normal Gums, Normal Oropharynx, Normal Voice, No Airway Compromise Head: Atraumatic, Normocephalic Respiratory/Chest: No Respiratory Distress, Lungs Clear, Normal Breath Sounds, No Accessory Muscle Use, Chest Non-Tender Cardiovascular: Normal Peripheral Pulses, Regular Rate, Rhythm, No Murmur GI/Abdominal: Normal Bowel Sounds, Soft, Non-Tender, No Distention, No Mass Extremities: Normal Inspection, Normal Capillary Refill Neurological: Alert, CN II-XII Intact (grossly), Normal Gait, Normal Reflexes, No Motor/Sensory Deficits, Oriented x 3 Psychiatric: Alert, Oriented, Depressed Mood, Flat Affect, Tearful, Suicidal Plan (states that she would jump in front of traffic, as the voices are telling her to do so.), Suicidal Thoughts (Is hearing voices telling her to jump in front of oncoming traffic.), Auditory Hallucinations (hearing voices telling her to jump in front of oncoming traffic.), Other (recent suicidal attempt, took 20 tabs to tylenol on 07/13/2019). No: Homicidal Thoughts Skin Exam: Warm, Dry, Intact, Normal color, No rash COURSE, BEHAVIORAL HEALTH COMP - Course Vital Signs: Last Vital Signs Temp 98.2 F 07/21/19 22:09 Pulse 93 07/21/19 22:09 Resp 24 H 07/21/19 22:09 BP 129/75 07/21/19 22:09 Pulse Ox 99 07/21/19 22:09 Orders, Labs, Meds: Active Orders 24 hr Category Date Time Status CBC WITH MANUAL DIFF [HEME] Stat Lab 07/21/19 22:22 Received DRUG SCREEN, URINE [URCHEM] Stat Lab 07/21/19 22:12 Ordered SALICYLATE [CHEM] Stat Lab 07/21/19 22:22 Received Laboratory Tests 07/21/19 07/21/19 07/21/19 Range/Units 22:22 22:22 22:40 WBC 13.39 H (3.98-10.04) K/mm3 RBC 4.79 (3.98-5.22) M/mm3 Hgb 12.6 (11.2-15.7) gm/dl Hct 39.2 (34.1-44.9) % MCV 81.8 (79.4-94.8) fl MCH 26.3 (25.6-32.2) pg MCHC 32.1 L (32.2-35.5) g/dl RDW Std Deviation 42.0 (36.4-46.3) fL Plt Count 457 H (182-369) K/mm3 MPV 8.5 L (9.4-12.3) fl Sodium 138 (136-145) mEq/L Potassium 3.4 L (3.5-5.1) mEq/L Chloride 103 (98-107) mEq/L Carbon Dioxide 26 (21-32) mEq/L Anion Gap 12.4 (5-15) BUN 17 (7-18) mg/dL Creatinine 1.1 H (0.55-1.02) mg/dL Est Cr Clr Drug Dosing 70.08 mL/min Estimated GFR (MDRD) 57 (>60) mL/min BUN/Creatinine Ratio 15.5 (14-18) Glucose 117 H (74-106) mg/dL Calcium 9.1 (8.5-10.1) mg/dL Total Bilirubin 0.4 (0.2-1.0) mg/dL AST 16 (15-37) U/L ALT 32 (14-59) U/L Alkaline Phosphatase 113 (46-116) U/L Total Protein 7.7 (6.4-8.2) g/dl Albumin 3.6 (3.4-5.0) g/dl Globulin 4.1 gm/dL Albumin/Globulin Ratio 0.9 L (1-2) TSH 3rd Generation 1.585 (0.358-3.74) uIU/mL Urine HCG, Qual Negative (NEGATIVE) Acetaminophen 0 L (10-30) ug/mL Ethyl Alcohol 0.00 (0.00) gm% Discharge vs Psych Eval/Treatment:: 07/21/19 22:57 Patient presents to the ED for suicidal ideations. This has been an ongoing andrews for her for last 3 weeks. I did order psych clearance meds but as the patient's been at [facility] I do not believe any of these should be out of the normal. Patient is not complaining of any sort of issues at today's visit other than hearing voices telling her to jump in front of traffic. I did call [facility] in [place] and Dr. Mann does accept her for her bipolar disorder at this time. I will try to line up [place] [facility] for transfer as the patient does not have transportation to take her at [facility]'s visit. Departure - Departure Time of Disposition: 23:10 Disposition: DC/Tfer to Psych Hosp/Unit 65 Condition: Fair Clinical Impression: Bipolar disorder with depression - Discharge Information *PRESCRIPTION DRUG MONITORING PROGRAM REVIEWED*: No *COPY OF PRESCRIPTION DRUG MONITORING REPORT IN PATIENT JENNIFER: No Forms: ED Department Discharge Sepsis Event Note - Evaluation Sepsis Screening Result: No Definite Risk - Focused Exam Vital Signs: Vital Signs Temp Pulse Resp BP Pulse Ox 07/21/19 22:09 98.2 F 93 24 H 129/75 99 Date Exam was Performed: 07/21/19 Time Exam was Performed: 23:10 - My Orders Last 24 Hours: My Active Orders 07/21/19 22:12 DRUG SCREEN, URINE [URCHEM] Stat 07/21/19 22:22 CBC WITH MANUAL DIFF [HEME] Stat SALICYLATE [CHEM] Stat - Assessment/Plan Last 24 Hours: My Active Orders 07/21/19 22:12 DRUG SCREEN, URINE [URCHEM] Stat 07/21/19 22:22 CBC WITH MANUAL DIFF [HEME] Stat SALICYLATE [CHEM] Stat
[2019-07-22 01:33] VITALS: BP 136/66; PULSE 85
== END 2019-07-22 00:30 ==
LOC: JD.ED 21:54 → SUPCPDRO 21:54 → JD.ED 07-22 00:30
DX: F32.9 Major depressive disorder, single episode, unspecified (principal); I10 Essential (primary) hypertension; Z88.8 Allergy status to other drugs, medicaments and biological substances; Z88.1 Allergy status to other antibiotic agents; Z88.2 Allergy status to sulfonamides; Z79.899 Other long term (current) drug therapy
CPT/HCPCS: 36415; 80053; 80306; 80307; 81025; 84443; 85007; 85027; 99283; 99285

== ENCOUNTER 2019-08-07 19:27 | Emergency (ER) | payer MEDICARE, MEDICAID ==
[2019-08-07] MEDS ORDERED: Naloxone 2 MG/2 ML Syringe IVPUSH ONE (19:31)
[2019-08-07 19:41] VITALS: PULSE 102
[2019-08-07] MEDS ORDERED: Sodium Chloride 0.9% 1,000 ML IV SCH (19:45)
[2019-08-07] MEDS ORDERED: Lactated Ringers 1,000 ML IV ONE (21:29)
--- NOTE | 2019-08-07 21:29 | EDM.PDOC ---
ED HPI GENERAL MEDICAL PROBLEM - General Chief Complaint: General Stated Complaint: WEAK DIZZY Time Seen by Provider: 08/07/19 19:31 Source of Information: Reports: Patient, Other (Friend) History Limitations: Reports: No Limitations - History of Present Illness INITIAL COMMENTS - FREE TEXT/NARRATIVE: Ms. Mccormick is a pleasant 34-year-old woman with a past medical history significant for hypertension, obstructive sleep apnea, GERD, arthritis, obesity, prediabetes, and anxiety, bipolar affective disorder I, and depression , who states that she has been feeling generally weak since , lightheaded today, and nauseous without emesis this evening. She states that she was started on fluphenazine (Prolixin) and valproate (Depakote) this past 08/03/2019 per a psychiatrist at [facility], as she was being discharged from that facility. She states that she has not been on these particular theatric medications in the past. The patient denies recent fever, chills, cough, dyspnea, chest pain, palpitations, nausea, vomiting, constipation, diarrhea, abdominal pain, urinary symptoms, recent weight gain or weight loss, recent bloody bowel movements or black bowel movements, recent joint aches, headaches, or rashes. The patient's PCP is Angie Gleason NP. Her Psychiatrist is Dr. Felecia Sue. Her Psychologist is Pepper Juarez PsyD. She received an influenza vaccine this season. - Related Data Allergies Allergy/AdvReac Type Severity Reaction Status Date / Time cephalexin monohydrate Allergy Rash Verified 08/07/19 19:41 [From Keflex] doxycycline Allergy Rash Verified 08/07/19 19:41 levofloxacin [From Levaquin] Allergy Rash Verified 08/07/19 19:41 lithium Allergy Nausea and Verified 08/07/19 19:41 Vomiting metronidazole [From Flagyl] Allergy Rash Verified 08/07/19 19:41 sulfamethoxazole Allergy Rash Verified 08/07/19 19:41 [From Septra] trimethoprim [From Septra] Allergy Rash Verified 08/07/19 19:41 Home Meds: Home Meds Etonogestrel [Nexplanon] 68 mg SQ ASDIRECTED 08/29/17 [History] Levothyroxine [Synthroid] 200 mcg PO ACBREAKFAST 11/16/17 [History] Losartan [Cozaar] 50 mg PO BEDTIME 03/23/18 [History] QUEtiapine Fumarate [Seroquel] 200 mg PO BEDTIME 07/21/18 [History] amLODIPine [Norvasc] 10 mg PO BEDTIME 08/17/18 [History] Ziprasidone HCl [Geodon] 20 mg PO BIDMEALS 04/22/19 [History] hydroCHLOROthiazide [Hydrochlorothiazide] 25 mg PO DAILY 04/22/19 [History] lamoTRIgine [Lamictal] 100 mg PO DAILY 04/22/19 [History] lamoTRIgine [Lamictal] 200 mg PO BEDTIME 04/22/19 [History] DULoxetine [Cymbalta] 90 mg PO DAILY 06/30/19 [History] Divalproex Sodium [Depakote] 1,500 mg PO BEDTIME 08/07/19 [History] fluPHENAZine HCl [fluPHENAZine] 5 mg PO DAILY 08/07/19 [History] fluPHENAZine HCl [fluPHENAZine] 10 mg PO BEDTIME 08/07/19 [History] Past Medical History HEENT History: Reports: Impaired Vision Cardiovascular History: Reports: Hypertension Respiratory History: Reports: Sleep Apnea (nightly CPAP 10) Gastrointestinal History: Reports: GERD Musculoskeletal History: Reports: Arthritis Psychiatric History: Reports: Anxiety, Bipolar (I), Depression, Suicide Attempt Endocrine/Metabolic History: Reports: Hypothyroidism (following thyroidectomy 2ndary to a benign tumor), Obesity/BMI 30+, Other (See Below) (Prediabetes) - Infectious Disease History Infectious Disease History: Reports: Chicken Pox - Past Surgical History HEENT Surgical History: Reports: Oral Surgery (wisdom tooth extraction), Tonsillectomy GI Surgical History: Reports: Cholecystectomy (Jul 2017) Endocrine Surgical History: Reports: Thyroidectomy Social & Family History - Family History Family Medical History: Noncontributory - Tobacco Use Smoking Status *Q: Former Smoker Years of Tobacco use: 5 Packs/Tins Daily: 1 Month/Year Tobacco Last Used: Quit 2009 - Caffeine Use Caffeine Use: Reports: Soda Other Caffeine Use: drinks 2 liters of soda a day - Alcohol Use Alcohol Use History: Yes Date/Time of Last Drink Comment: None since 2014 - Recreational Drug Use Recreational Drug Use: No - Living Situation & Occupation Living situation: Reports: Single, Alone Occupation: Unemployed ED ROS GENERAL - Review of Systems Review Of Systems: Comprehensive ROS is negative, except as noted in HPI. ED EXAM, GENERAL - Physical Exam Exam: See Below Exam Limited By: No Limitations General Appearance: WD/WN, No Apparent Distress, Other (speaks slowly) Eye Exam: Bilateral Eye: EOMI, Normal Inspection Ears: Normal External Exam, Normal Canal, Hearing Grossly Normal, Normal TMs Nose: Normal Inspection, Normal Mucosa, No Blood Throat/Mouth: Normal Inspection, Normal Lips, Normal Teeth, Normal Gums, Normal Oropharynx (mucus membranes slightly dry), Normal Voice, No Airway Compromise Head: Atraumatic, Normocephalic Neck: Normal Inspection, Supple, Non-Tender, Full Range of Motion. No: Lymphadenopathy (L), Lymphadenopathy (R) Respiratory/Chest: No Respiratory Distress, Lungs Clear, Normal Breath Sounds, No Accessory Muscle Use Cardiovascular: Normal Peripheral Pulses, Regular Rate, Rhythm, No Gallop, No JVD, No Murmur, No Rub Peripheral Pulses: 4+: Radial (L), Radial (R) GI/Abdominal: Normal Bowel Sounds, Soft, Non-Tender, No Organomegaly, No Distention, No Abnormal Bruit, No Mass (Female) Exam: Deferred Rectal (Female) Exam: Deferred Back Exam: Normal Inspection, Full Range of Motion, NT Extremities: Normal Inspection, Normal Range of Motion, No Pedal Edema, Normal Capillary Refill Neurological: Oriented, CN II-XII Intact, No Motor/Sensory Deficits, Other ( Speaks, moves slowly) Psychiatric: Flat Affect Skin Exam: Warm, Dry, Intact, Normal Color, No Rash Course - Vital Signs Last Recorded V/S: Last Vital Signs Temp 37.1 C 08/07/19 19:38 Pulse 102 H 08/07/19 19:38 Resp 19 08/07/19 23:27 BP 123/63 08/07/19 23:27 Pulse Ox 97 08/07/19 23:27 Orthostatic Blood Pressure [ 139/88 Standing] Orthostatic Blood Pressure [ 135/81 Supine] - Orders/Labs/Meds Orders: Active Orders 24 hr Category Date Time Status EKG Documentation Completion [RC] STAT Care 08/07/19 19:32 Inactive Orthostatic Vital Signs [RC] STAT Care 08/07/19 21:22 Active CULTURE URINE [RM] Stat Lab 08/07/19 22:46 Ordered Labs: Laboratory Tests 08/07/19 08/07/19 08/07/19 Range/Units 20:10 20:10 20:11 WBC 11.39 H (3.98-10.04) K/mm3 RBC 5.12 (3.98-5.22) M/mm3 Hgb 13.3 (11.2-15.7) gm/dl Hct 40.6 (34.1-44.9) % MCV 79.3 L (79.4-94.8) fl MCH 26.0 (25.6-32.2) pg MCHC 32.8 (32.2-35.5) g/dl RDW Std Deviation 39.9 (36.4-46.3) fL Plt Count 454 H (182-369) K/mm3 MPV 8.5 L (9.4-12.3) fl Neut % (Auto) 60.4 (34.0-71.1) % Lymph % (Auto) 26.3 (19.3-51.7) % [place] % (Auto) 10.4 (4.7-12.5) % Eos % (Auto) 2.1 (0.7-5.8) Baso % (Auto) 0.4 (0.1-1.2) % Neut # (Auto) 6.87 H (1.56-6.13) K/mm3 Lymph # (Auto) 3.00 (1.18-3.74) K/mm3 [place] # (Auto) 1.18 H (0.24-0.36) K/mm3 Eos # (Auto) 0.24 (0.04-0.36) K/mm3 Baso # (Auto) 0.05 (0.01-0.08) K/mm3 Manual Slide Review Normal smear Sodium (136-145) mEq/L Potassium (3.5-5.1) mEq/L Chloride (98-107) mEq/L Carbon Dioxide (21-32) mEq/L Anion Gap (5-15) BUN (7-18) mg/dL Creatinine (0.55-1.02) mg/dL Est Cr Clr Drug Dosing mL/min Estimated GFR (MDRD) (>60) mL/min BUN/Creatinine Ratio (14-18) Glucose (74-106) mg/dL Calcium (8.5-10.1) mg/dL Magnesium (1.8-2.4) mg/dl Total Bilirubin (0.2-1.0) mg/dL AST (15-37) U/L ALT (14-59) U/L Alkaline Phosphatase (46-116) U/L Total Protein (6.4-8.2) g/dl Albumin (3.4-5.0) g/dl Globulin gm/dL Albumin/Globulin Ratio (1-2) TSH 3rd Generation (0.358-3.74) uIU/mL Urine Color Yellow (Yellow) Urine Appearance Slt cloudy H (Clear) Urine pH 6.5 (5.0-8.0) Ur Specific [place] 1.025 (1.005-1.030) Urine Protein Negative (Negative) Urine Glucose (UA) Negative (Negative) Urine Ketones Negative (Negative) Urine Occult Blood 1+ H (Negative) Urine Nitrite Negative (Negative) Urine Bilirubin Negative (Negative) Urine Urobilinogen 0.2 (0.2-1.0) Ur Leukocyte Esterase Negative (Negative) Urine RBC 10-20 H (0-5) /hpf Urine WBC 0-5 (0-5) /hpf Ur Squamous Epith Cells 10-20 H (0-5) /hpf Urine Bacteria Many H (FEW) /hpf Urine Mucus Moderate H (FEW) /hpf Urine Opiates Screen Negative (VIKVFY=315) Ur Buprenorphine Scrn Negative (CUTOFF=10) Ur Oxycodone Screen Negative (VQJ6HQ=841) Urine Methadone Screen Negative (JRGMPS=744) Ur Propoxyphene Screen Negative (ZRQYON=545) Ur Barbiturates Screen Negative (XHEXUW=386) Ur Tricyclics Screen Presumptive positive H (LWWOOU=379) Ur Phencyclidine Scrn Negative (CUTOFF=25) Ur Amphetamine Screen Negative (ERHLQU=883) U Methamphetamines Scrn Negative (WGQMLW=960) U Benzodiazepines Scrn Negative (NHPPMG=688) U Cocaine Metab Screen Negative (GUNWDH=816) U Marijuana (THC) Screen Negative (CUTOFF=50) Ethyl Alcohol (0.00) gm% 08/07/19 08/07/19 Range/Units 20:11 20:11 WBC (3.98-10.04) K/mm3 RBC (3.98-5.22) M/mm3 Hgb (11.2-15.7) gm/dl Hct (34.1-44.9) % MCV (79.4-94.8) fl MCH (25.6-32.2) pg MCHC (32.2-35.5) g/dl RDW Std Deviation (36.4-46.3) fL Plt Count (182-369) K/mm3 MPV (9.4-12.3) fl Neut % (Auto) (34.0-71.1) % Lymph % (Auto) (19.3-51.7) % [place] % (Auto) (4.7-12.5) % Eos % (Auto) (0.7-5.8) Baso % (Auto) (0.1-1.2) % Neut # (Auto) (1.56-6.13) K/mm3 Lymph # (Auto) (1.18-3.74) K/mm3 [place] # (Auto) (0.24-0.36) K/mm3 Eos # (Auto) (0.04-0.36) K/mm3 Baso # (Auto) (0.01-0.08) K/mm3 Manual Slide Review Sodium 140 (136-145) mEq/L Potassium 3.3 L (3.5-5.1) mEq/L Chloride 101 (98-107) mEq/L Carbon Dioxide 26 (21-32) mEq/L Anion Gap 16.3 H (5-15) BUN 18 (7-18) mg/dL Creatinine 1.3 H (0.55-1.02) mg/dL Est Cr Clr Drug Dosing 59.30 mL/min Estimated GFR (MDRD) 47 (>60) mL/min BUN/Creatinine Ratio 13.8 L (14-18) Glucose 102 (74-106) mg/dL Calcium 9.3 (8.5-10.1) mg/dL Magnesium 2.1 (1.8-2.4) mg/dl Total Bilirubin 0.5 (0.2-1.0) mg/dL AST 23 (15-37) U/L ALT 43 (14-59) U/L Alkaline Phosphatase 107 (46-116) U/L Total Protein 8.0 (6.4-8.2) g/dl Albumin 3.9 (3.4-5.0) g/dl Globulin 4.1 gm/dL Albumin/Globulin Ratio 1.0 (1-2) TSH 3rd Generation 0.297 L (0.358-3.74) uIU/mL Urine Color (Yellow) Urine Appearance (Clear) Urine pH (5.0-8.0) Ur Specific [place] (1.005-1.030) Urine Protein (Negative) Urine Glucose (UA) (Negative) Urine Ketones (Negative) Urine Occult Blood (Negative) Urine Nitrite (Negative) Urine Bilirubin (Negative) Urine Urobilinogen (0.2-1.0) Ur Leukocyte Esterase (Negative) Urine RBC (0-5) /hpf Urine WBC (0-5) /hpf Ur Squamous Epith Cells (0-5) /hpf Urine Bacteria (FEW) /hpf Urine Mucus (FEW) /hpf Urine Opiates Screen (CNHBFP=239) Ur Buprenorphine Scrn (CUTOFF=10) Ur Oxycodone Screen (RNJ5YE=851) Urine Methadone Screen (XSNMJP=035) Ur Propoxyphene Screen (CQTFEY=047) Ur Barbiturates Screen (EYQPRS=214) Ur Tricyclics Screen (QEGMWM=549) Ur Phencyclidine Scrn (CUTOFF=25) Ur Amphetamine Screen (NRYPJO=080) U Methamphetamines Scrn (YXGPMO=745) U Benzodiazepines Scrn (ULPGYK=723) U Cocaine Metab Screen (NOGYSD=069) U Marijuana (THC) Screen (CUTOFF=50) Ethyl Alcohol 0.00 (0.00) gm% Meds: Medications Discontinued Medications Generic Name Dose Route Start Last Admin Trade Name Freq PRN Reason Stop Dose Admin Lactated Ringer's 1,000 mls @ 999 mls/hr 08/07/19 21:29 08/07/19 21:55 Ringers, Lactated IV 08/07/19 22:29 999 mls/hr .BOLUS ONE Administration - Re-Assessments/Exams Free Text/Narrative Re-Assessment/Exam: 08/07/19 21:26 As above, the patient is complaining of generalized weakness, dizziness in the form of lightheadedness, and nausea without emesis. The symptoms are most likely due to the addition of fluphenazine, which can cause dizziness, drowsiness, and lethargy, and valproate, which can cause drowsiness, dizziness, and nausea. Patient feels like she is dehydrated. I have ordered a work-up to evaluate for metabolic issues, including blood work, urinalysis, and orthostatics. In the meantime, the patient will be given IV fluid. 08/07/19 21:39 The patient is not orthostatic. 08/07/19 22:47 The patient CBC is remarkable for a WBC count modestly elevated at 11.39, but with no bands, and platelets elevated at 454,000, with the remainder of her CBC being unremarkable. Her CMP is remarkable for a potassium slightly depressed at 3.3, and anion gap elevated at 16.3 with a bicarbonate normal at 26, and a creatinine slightly elevated at 1.3 with a BUN normal at 18. The remainder of her CMP is unremarkable. Her magnesium is within normal limits at 2.1. Her TSH is low at 0.247. Her EtOH is 0.00. Her urinalysis is remarkable for 1+ occult blood with 10-20 RBCs, leukocyte esterase negative with 0-5 WBCs, nitrate negative with many bacteria, and 10-20 squamous epithelial cells. Her urine drug screen is positive for tricyclic antidepressants, and is otherwise negative. The patient's low TSH indicates that she may be taking an excessive dose of levothyroxine. She will need to follow-up with her prescribing PCP in this regard. Her urinalysis appears to be contaminated. I have ordered a urine culture, but I am not going to start her on antibiotics at this time. The remainder of her work-up is unremarkable. As suspected, her current symptoms of weakness, lightheadedness, and nausea are most likely due to her newly prescribed fluphenazine and valproate. The patient had indicated that she is willing to continue with these medications despite the side effects. I will discharge her home. 08/07/19 22:53 Test results discussed with the patient and 2 of her friends. She is agreeable with the diagnosis, and is to continue on the fluphenazine and valproate. I will have her follow-up with her Psychiatrist. Departure - Departure Time of Disposition: 22:53 Disposition: Home, Self-Care 01 Condition: Good Clinical Impression: Medication side effect, Generalized weakness, Lightheaded, Nausea - Discharge Information *PRESCRIPTION DRUG MONITORING PROGRAM REVIEWED*: Not Applicable *COPY OF PRESCRIPTION DRUG MONITORING REPORT IN PATIENT JENNIFER: Not Applicable Instructions: Weakness, [id number] Referrals: Angie Gleason NP [Primary Care Provider] - Felecia Sue MD [Ordering Only Provider] - Forms: ED Department Discharge Additional Instructions: You were seen in the emergency room after developing weakness on Tuesday, lightheadedness today, and nausea this evening, after being started on fluphenazine (Prolixin) and valproate (Depakote) on Tuesday. Work-up in the ER included blood work, a urinalysis, a urine drug screen, and positional blood pressure checks. Your work-up found your TSH (thyroid stimulating hormone) to be low, indicating that you may be taking an excessive dose of levothyroxine. We recommend that you follow-up with your prescriber, Tiffanie Gleason NP, in this regard. The remainder of your work-up was unremarkable. You are not dehydrated. There is no sign of infection. Based on your history, physical exam, and ER tests, the cause of your symptoms is most likely due to the fluphenazine and valproate that you just started. We recommend that you follow-up with your Psychiatrist, Dr. Enoch Sue, at the next available appointment, to discuss your symptoms. If any other problems, please do not hesitate to return to the ER. Sepsis Event Note - Evaluation Sepsis Screening Result: No Definite Risk - Focused Exam Vital Signs: Vital Signs Resp BP Pulse Ox 08/07/19 23:27 19 123/63 97 Date Exam was Performed: 08/08/19 Time Exam was Performed: 09:57 - My Orders Last 24 Hours: My Active Orders 08/07/19 19:32 EKG Documentation Completion [RC] STAT 08/07/19 21:22 Orthostatic Vital Signs [RC] STAT 08/07/19 22:46 CULTURE URINE [RM] Stat - Assessment/Plan Last 24 Hours: My Active Orders 08/07/19 19:32 EKG Documentation Completion [RC] STAT 08/07/19 21:22 Orthostatic Vital Signs [RC] STAT 08/07/19 22:46 CULTURE URINE [RM] Stat
[2019-08-07 23:42] VITALS: BP 123/63
== END 2019-08-07 23:27 | disposition home or self-care (01) ==
LOC: JD.ED 19:27
DX: R53.1 Weakness (principal); R42 Dizziness and giddiness; R11.0 Nausea; T43.3X5A Adverse effect of phenothiazine antipsychotics and neuroleptics, initial encounter; T42.6X5A Adverse effect of other antiepileptic and sedative-hypnotic drugs, initial encounter; I10 Essential (primary) hypertension; Z88.8 Allergy status to other drugs, medicaments and biological substances; Z88.2 Allergy status to sulfonamides; Z88.1 Allergy status to other antibiotic agents; Z79.899 Other long term (current) drug therapy; Z87.891 Personal history of nicotine dependence
CPT/HCPCS: 36415; 80053; 80306; 80307; 81001; 83735; 84443; 85025; 87086; 96360; 99284; J7120; 99283

== ENCOUNTER 2019-08-10 14:29 | Emergency (ER) | payer MEDICARE, MEDICAID ==
[2019-08-10] MEDS ORDERED: LORazepam 1 MG Tab PO ONE (14:45)
[2019-08-10] MEDS ORDERED: QUEtiapine 100 MG Tab PO ONE (14:46)
[2019-08-10] MEDS ORDERED: Ziprasidone HCl 20 MG Cap PO ONE (14:47)
--- NOTE | 2019-08-10 14:49 | EDM.PDOCBH ---
ED HPI GENERAL MEDICAL PROBLEM - General Chief Complaint: Behavioral/Psych Stated Complaint: [facility] Time Seen by Provider: 08/10/19 14:45 Source of Information: Reports: Patient History Limitations: Reports: No Limitations - History of Present Illness INITIAL COMMENTS - FREE TEXT/NARRATIVE: 4-year-old female presents to the ED feeling very anxious and stating that she is hearing voices that are telling her to walk out in front of cars. She does not feel safe and feels she needs to be admitted to a treatment center. She was last in [facility] I believe up until July 22. Was medication changes of which I am not sure of. Feels that these changes were made a week ago and she does not feel they are helping. She just came from the psychologists office. Apparently she had a breakdown while she was there. Presents to the ED crying and upset and feeling agitated and anxious. Did apparently to eat dinner today. Hopeful there might be a bed in [facility] but I have already phone and there are no psychiatric beds available in either hospital. Onset: Other (He reports that she has been hearing voices that are telling her to walk out into traffic for several days but worse today.) Onset Date: 08/07/19 (Chronic problems with a psychosis as well as major depression.) Duration: Chronic, Getting Worse Quality: Reports: Other Severity: Moderate Improves with: Reports: None Worsens with: Reports: None Context: Denies: Activity, Exercise, Lifting, Sick Contact, Trauma, Other Associated Symptoms: Reports: Malaise. 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 (see below) (Has taken only her prescribed medications.) - Related Data Allergies Allergy/AdvReac Type Severity Reaction Status Date / Time cephalexin monohydrate Allergy Rash Verified 08/10/19 14:37 [From Keflex] doxycycline Allergy Rash Verified 08/10/19 14:37 levofloxacin [From Levaquin] Allergy Rash Verified 08/10/19 14:37 metronidazole [From Flagyl] Allergy Rash Verified 08/10/19 14:37 sulfamethoxazole Allergy Rash Verified 08/10/19 14:37 [From Septra] trimethoprim [From Septra] Allergy Rash Verified 08/10/19 14:37 lithium AdvReac Nausea and Verified 08/10/19 14:53 Vomiting Home Meds: Home Meds Etonogestrel [Nexplanon] 68 mg SQ ASDIRECTED 08/29/17 [History] Levothyroxine [Synthroid] 200 mcg PO ACBREAKFAST 11/16/17 [History] Losartan [Cozaar] 50 mg PO BEDTIME 03/23/18 [History] QUEtiapine Fumarate [Seroquel] 200 mg PO BEDTIME 07/21/18 [History] amLODIPine [Norvasc] 10 mg PO BEDTIME 08/17/18 [History] Ziprasidone HCl [Geodon] 20 mg PO BIDMEALS 04/22/19 [History] hydroCHLOROthiazide [Hydrochlorothiazide] 25 mg PO DAILY 04/22/19 [History] lamoTRIgine [Lamictal] 100 mg PO DAILY 04/22/19 [History] lamoTRIgine [Lamictal] 200 mg PO BEDTIME 04/22/19 [History] DULoxetine [Cymbalta] 90 mg PO DAILY 06/30/19 [History] Divalproex Sodium [Depakote] 1,500 mg PO BEDTIME 08/07/19 [History] fluPHENAZine HCl [fluPHENAZine] 5 mg PO DAILY 08/07/19 [History] fluPHENAZine HCl [fluPHENAZine] 10 mg PO BEDTIME 08/07/19 [History] Past Medical History HEENT History: Reports: Impaired Vision Cardiovascular History: Reports: Hypertension Respiratory History: Reports: Sleep Apnea Gastrointestinal History: Reports: GERD Other [employer] History: on the Depo shot Musculoskeletal History: Reports: Arthritis Psychiatric History: Reports: Anxiety, Bipolar, Depression, Suicide Attempt Endocrine/Metabolic History: Reports: Hypothyroidism, Obesity/BMI 30+, Other ( See Below) Hematologic History: Reports: Anemia Other Hematologic History: elevated right WBC Oncologic (Cancer) History: Reports: Other (See Below) Other Oncologic History: facial - Infectious Disease History Infectious Disease History: Reports: Chicken Pox - Past Surgical History HEENT Surgical History: Reports: Oral Surgery, Tonsillectomy GI Surgical History: Reports: Cholecystectomy Endocrine Surgical History: Reports: Thyroidectomy Social & Family History - Family History Family Medical History: Noncontributory - Tobacco Use Smoking Status *Q: Never Smoker Second Hand Smoke Exposure: No - Caffeine Use Caffeine Use: Reports: None Other Caffeine Use: drinks 2 liters of soda a day - Recreational Drug Use Recreational Drug Use: No - Living Situation & Occupation Living situation: Reports: Single, Alone Occupation: Unemployed ED ROS GENERAL - Review of Systems Review Of Systems: See Below Constitutional: Reports: Weight Gain HEENT: Reports: No Symptoms Respiratory: Reports: Shortness of Breath Cardiovascular: Reports: Palpitations. Denies: Chest Pain, Blood Pressure Problem, Claudication, Lightheadedness, Orthopnea Endocrine: Reports: Fatigue GI/Abdominal: Reports: Constipation : Reports: Frequency Musculoskeletal: Reports: Back Pain Skin: Reports: No Symptoms Neurological: Reports: Weakness. Denies: Confusion, Dizziness, Headache, Numbness, Syncope, Tingling, Tremors, Trouble Speaking, Difficulty Walking, Change in Speech Psychiatric: Reports: Agitation, Anxiety, Hallucinations (Number), Mood Lability Hematologic/Lymphatic: Reports: No Symptoms Immunologic: Reports: No Symptoms ED EXAM, BEHAVIORAL HEALTH - Physical Exam Exam: See Below Exam Limited By: Other (And is very anxious and agitated.) General Appearance: Alert, WD/WN, Moderate Distress Eye Exam: Bilateral Eye: Normal Inspection, PERRL Throat/Mouth: Normal Inspection, Normal Lips, Normal Oropharynx Head: Atraumatic, Normocephalic Neck: Normal Inspection, Supple, Non-Tender, Full Range of Motion. No: Lymphadenopathy (L), Lymphadenopathy (R) Respiratory/Chest: Respiratory Distress (Apnea.) Cardiovascular: Normal Peripheral Pulses, No Murmur, Tachycardia Back Exam: Normal Inspection, Full Range of Motion. No: CVA Tenderness (L), CVA Tenderness (R) Extremities: Normal Inspection, Normal Range of Motion, Non-Tender, No Pedal Edema Neurological: Alert, CN II-XII Intact, Normal Cognition, Oriented x 3 Psychiatric: Alert, Restless, Tearful, Agitated (Mild.) Skin Exam: Warm ( She is usually easily calmed by by voice.), Dry, Intact, Normal color, No rash EKG INTERPRETATION EKG Date: 08/10/19 Time: 03:05 Rhythm: NSR Rate (Beats/Min): 96 [place]: Normal P-Wave: Present QRS: Other (RSR prime wave in V1 consider normal variant. There is a nonspecific intraventricular conduction delay pattern.) ST-T: Other (T wave inversion leads V3 to V6.) QT: Prolonged EKG Interpretation Comments: Abnormal ECG COURSE, BEHAVIORAL HEALTH COMP - Course Vital Signs: Last Vital Signs Temp 36.4 C 08/10/19 14:34 Pulse 110 H 08/10/19 14:34 Resp 24 H 08/10/19 14:34 BP 159/81 H 08/10/19 14:34 Pulse Ox 95 08/10/19 14:34 Orders, Labs, Meds: Active Orders 24 hr Category Date Time Status EKG Documentation Completion [RC] STAT Care 08/10/19 14:48 Active Laboratory Tests 08/10/19 08/10/19 08/10/19 Range/Units 14:56 15:02 15:02 WBC 8.71 (3.98-10.04) K/mm3 RBC 5.21 (3.98-5.22) M/mm3 Hgb 13.8 (11.2-15.7) gm/dl Hct 43.8 (34.1-44.9) % MCV 84.1 D (79.4-94.8) fl MCH 26.5 (25.6-32.2) pg MCHC 31.5 L (32.2-35.5) g/dl RDW Std Deviation 42.7 (36.4-46.3) fL Plt Count 436 H (182-369) K/mm3 MPV 9.2 L (9.4-12.3) fl Neut % (Auto) 60.1 (34.0-71.1) % Lymph % (Auto) 25.7 (19.3-51.7) % [place] % (Auto) 10.0 (4.7-12.5) % Eos % (Auto) 2.8 (0.7-5.8) Baso % (Auto) 0.8 (0.1-1.2) % Neut # (Auto) 5.24 (1.56-6.13) K/mm3 Lymph # (Auto) 2.24 (1.18-3.74) K/mm3 [place] # (Auto) 0.87 H (0.24-0.36) K/mm3 Eos # (Auto) 0.24 (0.04-0.36) K/mm3 Baso # (Auto) 0.07 (0.01-0.08) K/mm3 Sodium 141 (136-145) mEq/L Potassium 3.3 L (3.5-5.1) mEq/L Chloride 103 (98-107) mEq/L Carbon Dioxide 24 (21-32) mEq/L Anion Gap 17.3 H (5-15) BUN 9 (7-18) mg/dL Creatinine 1.2 H (0.55-1.02) mg/dL Est Cr Clr Drug Dosing TNP Estimated GFR (MDRD) 51 (>60) mL/min BUN/Creatinine Ratio 7.5 L (14-18) Glucose 122 H (74-106) mg/dL Calcium 9.8 (8.5-10.1) mg/dL Total Bilirubin 0.5 (0.2-1.0) mg/dL AST 22 (15-37) U/L ALT 40 (14-59) U/L Alkaline Phosphatase 95 (46-116) U/L Total Protein 8.0 (6.4-8.2) g/dl Albumin 3.8 (3.4-5.0) g/dl Globulin 4.2 gm/dL Albumin/Globulin Ratio 0.9 L (1-2) Salicylates (2.8-20) mg/dL Urine Opiates Screen Negative (OUDZMZ=734) Ur Buprenorphine Scrn Negative (CUTOFF=10) Ur Oxycodone Screen Negative (LMN1RA=363) Urine Methadone Screen Negative (ROPGSN=343) Ur Propoxyphene Screen Negative (FBYUYJ=085) Acetaminophen 0 L (10-30) ug/mL Ur Barbiturates Screen Negative (UILARF=823) Ur Tricyclics Screen Negative (JMLOXC=373) Ur Phencyclidine Scrn Negative (CUTOFF=25) Ur Amphetamine Screen Negative (RBPFTV=408) U Methamphetamines Scrn Negative (ECKMIQ=533) U Benzodiazepines Scrn Negative (CBYPXN=999) U Cocaine Metab Screen Negative (IXZWUX=364) U Marijuana (THC) Screen Negative (CUTOFF=50) Ethyl Alcohol (0.00) gm% 08/10/19 08/10/19 Range/Units 15:02 15:02 WBC (3.98-10.04) K/mm3 RBC (3.98-5.22) M/mm3 Hgb (11.2-15.7) gm/dl Hct (34.1-44.9) % MCV (79.4-94.8) fl MCH (25.6-32.2) pg MCHC (32.2-35.5) g/dl RDW Std Deviation (36.4-46.3) fL Plt Count (182-369) K/mm3 MPV (9.4-12.3) fl Neut % (Auto) (34.0-71.1) % Lymph % (Auto) (19.3-51.7) % [place] % (Auto) (4.7-12.5) % Eos % (Auto) (0.7-5.8) Baso % (Auto) (0.1-1.2) % Neut # (Auto) (1.56-6.13) K/mm3 Lymph # (Auto) (1.18-3.74) K/mm3 [place] # (Auto) (0.24-0.36) K/mm3 Eos # (Auto) (0.04-0.36) K/mm3 Baso # (Auto) (0.01-0.08) K/mm3 Sodium (136-145) mEq/L Potassium (3.5-5.1) mEq/L Chloride (98-107) mEq/L Carbon Dioxide (21-32) mEq/L Anion Gap (5-15) BUN (7-18) mg/dL Creatinine (0.55-1.02) mg/dL Est Cr Clr Drug Dosing Estimated GFR (MDRD) (>60) mL/min BUN/Creatinine Ratio (14-18) Glucose (74-106) mg/dL Calcium (8.5-10.1) mg/dL Total Bilirubin (0.2-1.0) mg/dL AST (15-37) U/L ALT (14-59) U/L Alkaline Phosphatase (46-116) U/L Total Protein (6.4-8.2) g/dl Albumin (3.4-5.0) g/dl Globulin gm/dL Albumin/Globulin Ratio (1-2) Salicylates 0.8 L (2.8-20) mg/dL Urine Opiates Screen (OOANHR=063) Ur Buprenorphine Scrn (CUTOFF=10) Ur Oxycodone Screen (USA4TP=143) Urine Methadone Screen (JNXZMA=082) Ur Propoxyphene Screen (ALCSHE=619) Acetaminophen (10-30) ug/mL Ur Barbiturates Screen (JTGISN=198) Ur Tricyclics Screen (ERNXUK=321) Ur Phencyclidine Scrn (CUTOFF=25) Ur Amphetamine Screen (OKFCQI=311) U Methamphetamines Scrn (TYXBBA=331) U Benzodiazepines Scrn (FYHDXS=907) U Cocaine Metab Screen (AVMSJF=813) U Marijuana (THC) Screen (CUTOFF=50) Ethyl Alcohol 0.00 (0.00) gm% Medications Discontinued Medications Generic Name Dose Route Start Last Admin Trade Name Freq PRN Reason Stop Dose Admin Lorazepam 2 mg 08/10/19 14:45 08/10/19 15:17 Ativan PO 08/10/19 14:46 2 mg ONETIME ONE Administration Quetiapine Fumarate 100 mg 08/10/19 14:46 08/10/19 15:19 Seroquel PO 08/10/19 14:47 Not Given ONETIME ONE Ziprasidone 20 mg 08/10/19 14:47 08/10/19 15:17 Geodon PO 08/10/19 14:48 20 mg ONETIME ONE Administration Re-Assessment/Re-Exam: 84-year-old female suffering auditory hallucinations that are telling her to walk out in front of traffic to end her life. This is been a common theme for her on many occasions over the last several visits to the ED. She is on several antipsychotics at that time and recent medication changes a week ago have not made anything better in fact they are worse. She is agitated anxious and tearful. Routine labs will be collected. It appears that she likely needs inpatient management. Both [facility] in [place] psychiatry services are full. Re-Assessment/Re-Exam Date: 08/10/19 (I have asked the social work program coordinator to see her in consultation and to have [facility] become involved in her care since both [facility] and [place] are full on the psychiatric services. I do not feel that she is safe to send home. She also wishes to be institutionalized as she does not feel safe. Therefore [facility] is a likely option.) Re-Assessment/Re-Exam Time: 16:11 (White count is 8.71 with 60% neutrophils. Hemoglobin is 13.8 with hematocrit of 43.8. Platelet counts 436,000. Sodium 141 with potassium slightly low at 3.3. Chloride 103 with a bicarb of 24. Anion gap is mildly elevated at 17.3. BUN is 9 with a creatinine of 1.2. Glucose 122. Calcium is 9.8. Liver function normal total protein is 8.0 with an albumin fraction of 3.8. Analysis shows no drugs and acetaminophen level is 0.Urinalysis is normal and is negative for any drugs.) Medical Clearance: 08/10/19 17:02 chao is to assess this patient in the ED and then will see if we can get transport and acceptance at [facility]. She is doing much better after the dosage of Ativan and Geodon in the ED. So far she has not exhibited any dystonic reaction or tardive dyskinesia problems. Of note blood alcohol came back at 0.00 as well 08/10/19 18:18 months has cleared the patient to be admitted to [facility]. I have spoken with Dr. Zulay George she is accepted care of this patient. The problem now will be going to [facility] to transport the patient to [facility]. Transport is being looked into at this time by [facility] personnel. 08/10/19 18:43 Apparently the [facility]'s department will be here at 1900 hrs. to collect the patient and transport her to [facility]. 08/10/19 18:47 Departure - Departure Time of Disposition: 18:44 Disposition: DC/Tfer to Psych Hosp/Unit 65 Condition: Fair Clinical Impression: Hallucinations Bipolar affective disorder, current episode mixed Qualifiers: Current episode severity: severe Psychotic features: with psychotic features Qualified Code(s): F31.64 - Bipolar disorder, current episode mixed, severe, with psychotic features - Discharge Information *PRESCRIPTION DRUG MONITORING PROGRAM REVIEWED*: Not Applicable *COPY OF PRESCRIPTION DRUG MONITORING REPORT IN PATIENT JENNIFER: Not Applicable Referrals: Angie Gleason NP [Primary Care Provider] - Forms: ED Department Discharge Additional Instructions: Danny is transported to [facility] by [facility]'s department after she presented to the ED with recurrent thought processes of auditory hallucinations that are telling her to walk out in front of vehicles to end her life. This is been a common theme with her for the last 6 weeks. Changes in medications have not met with any success in controlling the auditory hallucinations. Patient presented from the psychologist today by ambulance and was quite distraught and tearful and agitated. She settled down quite nicely with Geodon 20-minute mouth and Ativan 2 mg by mouth but it is felt that she requires further evaluation and management as she is currently on 3 different antipsychotics. She will therefore be transferred to the [facility] for care and management by trained psychiatrist. Sepsis Event Note - Evaluation Sepsis Screening Result: No Definite Risk - Focused Exam Vital Signs: Vital Signs Temp Pulse Resp BP Pulse Ox 08/10/19 14:34 36.4 C 110 H 24 H 159/81 H 95 Date Exam was Performed: 08/10/19 Time Exam was Performed: 18:39 - My Orders Last 24 Hours: My Active Orders 08/10/19 14:48 EKG Documentation Completion [RC] STAT - Assessment/Plan Last 24 Hours: My Active Orders 08/10/19 14:48 EKG Documentation Completion [RC] STAT
[2019-08-10 15:45] LABS: ACETAMINOPHEN 0 ug/mL (10-30)
[2019-08-10 20:02] VITALS: BP 160/73; PULSE 112
== END 2019-08-10 19:30 ==
LOC: JD.ED 14:29
DX: F31.64 Bipolar disorder, current episode mixed, severe, with psychotic features (principal); R44.3 Hallucinations, unspecified; I10 Essential (primary) hypertension; Z88.8 Allergy status to other drugs, medicaments and biological substances; Z88.1 Allergy status to other antibiotic agents; Z79.899 Other long term (current) drug therapy
CPT/HCPCS: 36415; 80053; 80306; 80307; 85025; 93005; 99285; A9270; 93010

== ENCOUNTER 2020-02-26 17:02 | Emergency (ER) | payer MEDICARE, MEDICAID ==
[2020-02-26 17:15] VITALS: BP 119/109; PULSE 112
[2020-02-26] MEDS ORDERED: Sodium Chloride 0.9% 1,000 ML IV STA (17:30)
[2020-02-26] MEDS ORDERED: Sodium Chloride 0.9% 10 ML Syringe FLUSH PRN (17:30)
--- NOTE | 2020-02-26 18:11 | EDM.PDOC ---
ED HPI GENERAL MEDICAL PROBLEM - General Chief Complaint: Cardiovascular Problem Stated Complaint: LOW BP - SENT FROM CLINIC Time Seen by Provider: 02/26/20 17:13 Source of Information: Reports: Patient History Limitations: Reports: No Limitations - History of Present Illness INITIAL COMMENTS - FREE TEXT/NARRATIVE: Patient is a 34-year-old female sent to the emergency department from the walk- in clinic with complaints of hypotension. She states that she went to the walk- in clinic today because she has had some intermittent episodes of dizziness upon standing and sometimes with ambulation over the last few days. States that in the clinic, they were getting blood pressures of 80s systolic. Patient verbalized abnormal blood pressure for her is in the 120s to 130s. She denies any fever, chills, headaches, vision changes, abdominal pain, burning with urination. States she has had has had a couple loose stools over the last few days and did have one episode of vomiting. - Related Data Allergies Allergy/AdvReac Type Severity Reaction Status Date / Time cephalexin monohydrate Allergy Severe Rash Verified 02/26/20 17:16 [From Keflex] doxycycline Allergy Severe Rash Verified 02/26/20 17:16 levofloxacin [From Levaquin] Allergy Severe Rash Verified 02/26/20 17:16 metronidazole [From Flagyl] Allergy Severe Rash Verified 02/26/20 17:16 sulfamethoxazole Allergy Severe Rash Verified 02/26/20 17:16 [From Septra] trimethoprim [From Septra] Allergy Severe Rash Verified 02/26/20 17:16 lithium AdvReac Severe Nausea and Verified 02/26/20 17:16 Vomiting Home Meds: Home Meds Etonogestrel [Nexplanon] 68 mg SQ ASDIRECTED 08/29/17 [History] Levothyroxine [Synthroid] 200 mcg PO ACBREAKFAST 11/16/17 [History] Losartan [Cozaar] 50 mg PO BEDTIME 03/23/18 [History] QUEtiapine Fumarate [Seroquel] 200 mg PO BEDTIME 07/21/18 [History] amLODIPine [Norvasc] 10 mg PO BEDTIME 08/17/18 [History] hydroCHLOROthiazide [Hydrochlorothiazide] 25 mg PO DAILY 04/22/19 [History] lamoTRIgine [Lamictal] 100 mg PO DAILY 04/22/19 [History] lamoTRIgine [Lamictal] 200 mg PO BEDTIME 04/22/19 [History] ziprasidone HCL [Geodon] 20 mg PO BIDMEALS 04/22/19 [History] DULoxetine [Cymbalta] 90 mg PO DAILY 06/30/19 [History] Divalproex Sodium [Depakote] 1,500 mg PO BEDTIME 08/07/19 [History] fluPHENAZine HCl [fluPHENAZine] 5 mg PO DAILY 08/07/19 [History] fluPHENAZine HCl [fluPHENAZine] 10 mg PO BEDTIME 08/07/19 [History] Past Medical History HEENT History: Reports: Impaired Vision Cardiovascular History: Reports: Hypertension Respiratory History: Reports: Sleep Apnea Gastrointestinal History: Reports: GERD Genitourinary History: Reports: None 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 Other SITE SUPERVISING TECHNICAL OPERATOR History: on the Depo shot Musculoskeletal History: Reports: Arthritis Neurological History: Reports: None Psychiatric History: Reports: Anxiety, Bipolar, Depression, Suicide Attempt Endocrine/Metabolic History: Reports: Hypothyroidism, Obesity/BMI 30+, Other (See Below) Hematologic History: Reports: Anemia Other Hematologic History: elevated right WBC Immunologic History: Reports: None Oncologic (Cancer) History: Reports: Other (See Below) Other Oncologic History: facial Dermatologic History: Reports: None - Infectious Disease History Infectious Disease History: Reports: None - Past Surgical History HEENT Surgical History: Reports: Oral Surgery, Tonsillectomy GI Surgical History: Reports: Cholecystectomy Endocrine Surgical History: Reports: Thyroidectomy Social & Family History - Family History Family Medical History: Noncontributory - Tobacco Use Smoking Status *Q: Never Smoker - Caffeine Use Caffeine Use: Reports: Soda Other Caffeine Use: drinks 2 liters of soda a day - Recreational Drug Use Recreational Drug Use: No - Living Situation & Occupation Living situation: Reports: Single, Alone Occupation: Unemployed ED ROS GENERAL - Review of Systems Review Of Systems: See Below Constitutional: Reports: No Symptoms HEENT: Reports: No Symptoms. Denies: Vision Change Respiratory: Reports: No Symptoms Cardiovascular: Reports: Blood Pressure Problem, Lightheadedness Endocrine: Reports: No Symptoms GI/Abdominal: Reports: Diarrhea, Nausea, Vomiting. Denies: Abdominal Pain : Reports: No Symptoms Musculoskeletal: Reports: No Symptoms Skin: Reports: No Symptoms Neurological: Reports: Dizziness. Denies: Headache, Difficulty Walking, Weakness Psychiatric: Reports: No Symptoms Hematologic/Lymphatic: Reports: No Symptoms Immunologic: Reports: No Symptoms ED EXAM, GENERAL - Physical Exam Exam: See Below General Appearance: Alert, WD/WN, No Apparent Distress Eye Exam: Bilateral Eye: Normal Inspection, PERRL Head: Atraumatic Respiratory/Chest: No Respiratory Distress, Lungs Clear, Normal Breath Sounds, No Accessory Muscle Use, Chest Non-Tender Cardiovascular: Normal Peripheral Pulses, Regular Rate, Rhythm, No Edema, No Gallop, No JVD, No Murmur, No Rub GI/Abdominal: Normal Bowel Sounds, Soft, Non-Tender, No Organomegaly, No Distention, No Abnormal Bruit, No Mass Neurological: Alert, Oriented, CN II-XII Intact, Normal Cognition, Normal Gait, Normal Reflexes, No Motor/Sensory Deficits Psychiatric: Normal Affect, Normal Mood Skin Exam: Warm, Dry, Intact, Normal Color, No Rash Course - Vital Signs Last Recorded V/S: Last Vital Signs Temp 97.6 F 02/26/20 17:12 Pulse 112 H 02/26/20 17:12 Resp 18 02/26/20 17:12 BP 119/109 H 02/26/20 17:12 Pulse Ox 98 02/26/20 17:12 Orthostatic Blood Pressure [ 127/79 Standing] Orthostatic Blood Pressure [ 92/67 Sitting] Orthostatic Blood Pressure [ 136/58 Supine] - Orders/Labs/Meds Orders: Active Orders 24 hr Category Date Time Status Peripheral IV Insertion Adult [OM.PC] Stat Oth 02/26/20 17:30 Ordered Labs: Laboratory Tests 02/26/20 02/26/20 02/26/20 Range/Units 17:59 17:59 17:59 WBC 9.75 (3.98-10.04) K/mm3 RBC 5.00 (3.98-5.22) M/mm3 Hgb 13.5 (11.2-15.7) gm/dl Hct 40.0 (34.1-44.9) % MCV 80.0 D (79.4-94.8) fl MCH 27.0 (25.6-32.2) pg MCHC 33.8 (32.2-35.5) g/dl RDW Std Deviation 43.2 (36.4-46.3) fL Plt Count 389 H (182-369) K/mm3 MPV 8.9 L (9.4-12.3) fl Neut % (Auto) 70.0 (34.0-71.1) % Lymph % (Auto) 20.8 (19.3-51.7) % [place] % (Auto) 9.2 (4.7-12.5) % Eos % (Auto) 0 L (0.7-5.8) Baso % (Auto) 0.0 L (0.1-1.2) % Neut # (Auto) 6.82 H (1.56-6.13) K/mm3 Lymph # (Auto) 2.03 (1.18-3.74) K/mm3 [place] # (Auto) 0.90 H (0.24-0.36) K/mm3 Eos # (Auto) 0.00 L (0.04-0.36) K/mm3 Baso # (Auto) 0.00 L (0.01-0.08) K/mm3 Sodium 139 (136-145) mEq/L Potassium 3.4 L (3.5-5.1) mEq/L Chloride 101 (98-107) mEq/L Carbon Dioxide 28 (21-32) mEq/L Anion Gap 13.4 (5-15) BUN 18 (7-18) mg/dL Creatinine 1.4 H (0.55-1.02) mg/dL Est Cr Clr Drug Dosing 59.17 mL/min Estimated GFR (MDRD) 43 (>60) mL/min BUN/Creatinine Ratio 12.9 L (14-18) Glucose 100 (74-106) mg/dL Calcium 9.2 (8.5-10.1) mg/dL Magnesium 2.0 (1.8-2.4) mg/dl Total Bilirubin 0.5 (0.2-1.0) mg/dL AST 18 (15-37) U/L ALT 28 (14-59) U/L Alkaline Phosphatase 116 (46-116) U/L Total Protein 7.4 (6.4-8.2) g/dl Albumin 3.8 (3.4-5.0) g/dl Globulin 3.6 gm/dL Albumin/Globulin Ratio 1.1 (1-2) Urine Color (Yellow) Urine Appearance (Clear) Urine pH (5.0-8.0) Ur Specific [place] (1.005-1.030) Urine Protein (Negative) Urine Glucose (UA) (Negative) Urine Ketones (Negative) Urine Occult Blood (Negative) Urine Nitrite (Negative) Urine Bilirubin (Negative) Urine Urobilinogen (0.2-1.0) Ur Leukocyte Esterase (Negative) Urine RBC (0-5) /hpf Urine WBC (0-5) /hpf Ur Squamous Epith Cells (0-5) /hpf Urine Bacteria (FEW) /hpf Urine Mucus (FEW) /hpf 02/26/20 Range/Units 19:06 WBC (3.98-10.04) K/mm3 RBC (3.98-5.22) M/mm3 Hgb (11.2-15.7) gm/dl Hct (34.1-44.9) % MCV (79.4-94.8) fl MCH (25.6-32.2) pg MCHC (32.2-35.5) g/dl RDW Std Deviation (36.4-46.3) fL Plt Count (182-369) K/mm3 MPV (9.4-12.3) fl Neut % (Auto) (34.0-71.1) % Lymph % (Auto) (19.3-51.7) % [place] % (Auto) (4.7-12.5) % Eos % (Auto) (0.7-5.8) Baso % (Auto) (0.1-1.2) % Neut # (Auto) (1.56-6.13) K/mm3 Lymph # (Auto) (1.18-3.74) K/mm3 [place] # (Auto) (0.24-0.36) K/mm3 Eos # (Auto) (0.04-0.36) K/mm3 Baso # (Auto) (0.01-0.08) K/mm3 Sodium (136-145) mEq/L Potassium (3.5-5.1) mEq/L Chloride (98-107) mEq/L Carbon Dioxide (21-32) mEq/L Anion Gap (5-15) BUN (7-18) mg/dL Creatinine (0.55-1.02) mg/dL Est Cr Clr Drug Dosing mL/min Estimated GFR (MDRD) (>60) mL/min BUN/Creatinine Ratio (14-18) Glucose (74-106) mg/dL Calcium (8.5-10.1) mg/dL Magnesium (1.8-2.4) mg/dl Total Bilirubin (0.2-1.0) mg/dL AST (15-37) U/L ALT (14-59) U/L Alkaline Phosphatase (46-116) U/L Total Protein (6.4-8.2) g/dl Albumin (3.4-5.0) g/dl Globulin gm/dL Albumin/Globulin Ratio (1-2) Urine Color Yellow (Yellow) Urine Appearance Slt cloudy H (Clear) Urine pH 6.5 (5.0-8.0) Ur Specific [place] 1.020 (1.005-1.030) Urine Protein Negative (Negative) Urine Glucose (UA) Negative (Negative) Urine Ketones Negative (Negative) Urine Occult Blood Negative (Negative) Urine Nitrite Negative (Negative) Urine Bilirubin Negative (Negative) Urine Urobilinogen 0.2 (0.2-1.0) Ur Leukocyte Esterase Negative (Negative) Urine RBC 0-5 (0-5) /hpf Urine WBC 0-5 (0-5) /hpf Ur Squamous Epith Cells 10-20 H (0-5) /hpf Urine Bacteria Moderate H (FEW) /hpf Urine Mucus Not seen (FEW) /hpf Meds: Medications Discontinued Medications Generic Name Dose Route Start Last Admin Trade Name Freq PRN Reason Stop Dose Admin Sodium Chloride 1,000 mls @ 999 mls/hr 02/26/20 17:30 02/26/20 17:55 Normal Saline IV 02/26/20 18:30 999 mls/hr NOW STA Administration Sodium Chloride 10 ml 02/26/20 17:30 02/26/20 17:55 Saline Flush FLUSH 10 ml ASDIRECTED PRN Administration Keep Vein Open - Re-Assessments/Exams Free Text/Narrative Re-Assessment/Exam: 34-year-old female presenting to the emergency department with complaints of dizziness upon standing and occasionally with activity. She has had some episodes of loose stool and a small amount of vomiting, however this has resolved. She denies any other symptoms such as headache, vision changes, respiratory complaints, fever, chills, or abdominal pain. She was seen at walk- in clinic and sent here for blood pressure in the 80s systolically. Orthostatic vital signs were done and she did have a drop of blood pressure removed from 105/68- to 92/67 from the lying to sitting position. She was unable to tolerate standing because she stated that it made her too dizzy. I have ordered a 1 L bolus of NS. We will do a CBC, CMP, magnesium, and urinalysis. 02/26/20 19:38 Hematology was grossly unremarkable. Potassium was slightly low at 3.4 creatinine minimally elevated at 1.4. Patient is feeling better after 1 L of IV fluids. Blood pressures have improved and she is no longer orthostatic. Discussed increased fluid intake with her and avoiding caffeine consumption. Discharge instructions as documented. Departure - Departure Time of Disposition: 19:38 Disposition: Home, Self-Care 01 Condition: Good Clinical Impression: Orthostatic dizziness Instructions: Dizziness, [id number] Referrals: Angie Gleason NP [Primary Care Provider] - Forms: ED Department Discharge Additional Instructions: You were seen in the emergency department today for intermittent episodes of dizziness over the last few days. Your work-up included blood work, and urinalysis. The results of your work-up were found to be overall normal. While in the ER, you received a liter of IV fluids which did improve your symptoms. Recommend that you ensure that you are taking in an adequate amount of fluid on a daily basis. Avoid high sodium foods and caffeine consumption. Follow-up with your primary care provider next available visit. Return to the ER as needed. Sepsis Event Note (ED) - Evaluation Sepsis Screening Result: No Definite Risk - Focused Exam Vital Signs: Vital Signs Temp Pulse Resp BP Pulse Ox 02/26/20 17:12 97.6 F 112 H 18 119/109 H 98 - My Orders Last 24 Hours: My Active Orders 02/26/20 17:30 Peripheral IV Insertion Adult [OM.PC] Stat - Assessment/Plan Last 24 Hours: My Active Orders 02/26/20 17:30 Peripheral IV Insertion Adult [OM.PC] Stat
== END 2020-02-26 19:45 | disposition home or self-care (01) ==
LOC: JD.ED 17:02
DX: R42 Dizziness and giddiness (principal); R19.7 Diarrhea, unspecified; R11.10 Vomiting, unspecified; I10 Essential (primary) hypertension; F41.9 Anxiety disorder, unspecified; F31.9 Bipolar disorder, unspecified; Z88.2 Allergy status to sulfonamides; Z88.1 Allergy status to other antibiotic agents; Z91.09 Other allergy status, other than to drugs and biological substances; Z90.49 Acquired absence of other specified parts of digestive tract; Z79.899 Other long term (current) drug therapy
CPT/HCPCS: 36415; 80053; 81001; 83735; 85025; 96360; 99284-25; J7030

== ENCOUNTER 2020-03-01 19:26 | Emergency (ER) | payer MEDICARE, MEDICAID ==
[2020-03-01 19:43] VITALS: BP 117/81; PULSE 112
--- NOTE | 2020-03-01 20:05 | EDM.PDOC ---
ED HPI GENERAL MEDICAL PROBLEM - General Chief Complaint: General Stated Complaint: SEIZURES Time Seen by Provider: 03/01/20 19:40 Source of Information: Reports: Patient History Limitations: Reports: No Limitations - History of Present Illness INITIAL COMMENTS - FREE TEXT/NARRATIVE: Ms. Mccormick is a 34-year-old woman with a past medical history significant for anxiety, depression, and bipolar type I, currently on lamotrigine (Lamictal), quetiapine (Seroquel), clozapine (Clozaril), and either fluoxetine (Prozac) or fluphenazine, who now presents to the ED after having 2 episodes, lasting 5 minutes apart and by about 5 minutes, of "spacing out" by which the patient states that she was staring forward, while watching TV, around 19:00 this evening. She states that her boyfriend was wiggling her, telling her to come to, but that she was unaware of it. She states that from her perspective, she was simply watching television. She thought that her eyes were closed. She did not bite her tongue, and there was no incontinence of bowel or bladder. No prior similar symptoms. There is no report that the patient suffered a postictal period. Here in the ED, the patient is found to be tachycardic at 112 bpm, otherwise, she is hemodynamically stable, afebrile, saturating 97% on room air. Other than this evening's event, the patient denies having a recent fever, chills, sore throat, ear pain, nasal or sinus congestion, cough, dyspnea, chest pain, palpitations, nausea, vomiting, constipation, diarrhea, abdominal pain, urinary symptoms, recent weight gain or weight loss, recent bloody bowel movements or black bowel movements, recent joint aches, headaches, or rashes. The patient's PCP is Angie Gleason NP. Her Psychiatrist is Dr. Felecia Sue. Her Psychologist is Karishma Juarez PsyD. - Related Data Allergies Allergy/AdvReac Type Severity Reaction Status Date / Time cephalexin monohydrate Allergy Severe Rash Verified 03/01/20 19:43 [From Keflex] doxycycline Allergy Severe Rash Verified 03/01/20 19:43 levofloxacin [From Levaquin] Allergy Severe Rash Verified 03/01/20 19:43 metronidazole [From Flagyl] Allergy Severe Rash Verified 03/01/20 19:43 sulfamethoxazole Allergy Severe Rash Verified 03/01/20 19:43 [From ] trimethoprim [From ] Allergy Severe Rash Verified 03/01/20 19:43 lithium AdvReac Severe Nausea and Verified 03/01/20 19:43 Vomiting Home Meds: Home Meds Etonogestrel [Nexplanon] 68 mg SQ ASDIRECTED 08/29/17 [History] Levothyroxine [Synthroid] 200 mcg PO ACBREAKFAST 11/16/17 [History] Losartan [Cozaar] 50 mg PO BEDTIME 03/23/18 [History] QUEtiapine Fumarate [Seroquel] 50 mg PO BEDTIME 07/21/18 [History] amLODIPine [Norvasc] 10 mg PO BEDTIME 08/17/18 [History] hydroCHLOROthiazide [Hydrochlorothiazide] 25 mg PO DAILY 04/22/19 [History] lamoTRIgine [Lamictal] 175 mg PO DAILY 04/22/19 [History] lamoTRIgine [Lamictal] 200 mg PO BEDTIME 04/22/19 [History] fluPHENAZine HCl [fluPHENAZine] 5 mg PO DAILY 08/07/19 [History] fluPHENAZine HCl [fluPHENAZine] 10 mg PO BEDTIME 08/07/19 [History] Past Medical History HEENT History: Reports: Impaired Vision Cardiovascular History: Reports: Hypertension Respiratory History: Reports: Sleep Apnea (nightly CPAP 10) Gastrointestinal History: Reports: GERD Musculoskeletal History: Reports: Arthritis Psychiatric History: Reports: Anxiety, Bipolar (type I), Depression, Suicide Attempt Endocrine/Metabolic History: Reports: Hypothyroidism, Obesity/BMI 30+, Other (See Below) (Prediabetes) - Past Surgical History HEENT Surgical History: Reports: Oral Surgery (wisdom teeth extraction), Tonsillectomy GI Surgical History: Reports: Cholecystectomy (Jul 2017) Endocrine Surgical History: Reports: Thyroidectomy (due to a benign tumor) Social & Family History - Family History Family Medical History: Noncontributory - Tobacco Use Smoking Status *Q: Former Smoker Years of Tobacco use: 5 Packs/Tins Daily: 1 Month/Year Tobacco Last Used: Quit 2009 - Caffeine Use Caffeine Use: Reports: Soda Other Caffeine Use: drinks 2 liters of soda a day - Alcohol Use Alcohol Use History: Yes Date/Time of Last Drink Comment: Sober x 2014 - Recreational Drug Use Recreational Drug Use: No - Living Situation & Occupation Living situation: Reports: Single, Alone Occupation: Unemployed ED ROS GENERAL - Review of Systems Review Of Systems: Comprehensive ROS is negative, except as noted in HPI. ED EXAM, GENERAL - Physical Exam Exam: See Below Exam Limited By: No Limitations General Appearance: Alert, WD/WN, No Apparent Distress Eye Exam: Bilateral Eye: EOMI, Normal Inspection, PERRL Ears: Normal External Exam, Hearing Grossly Normal Nose: Normal Inspection Throat/Mouth: Normal Inspection, Normal Lips, Normal Voice, No Airway Compromise Head: Atraumatic, Normocephalic Neck: Normal Inspection, Full Range of Motion Respiratory/Chest: No Respiratory Distress, Lungs Clear, Normal Breath Sounds, No Accessory Muscle Use Cardiovascular: Normal Peripheral Pulses, Regular Rate, Rhythm, No Gallop, No JVD, No Murmur, No Rub Peripheral Pulses: 3+: Radial (L), Radial (R) GI/Abdominal: Normal Bowel Sounds, Soft, Non-Tender, No Organomegaly, No Distention, No Abnormal Bruit, No Mass (Female) Exam: Deferred Rectal (Female) Exam: Deferred Back Exam: Normal Inspection, Full Range of Motion, NT Extremities: Normal Inspection, Normal Range of Motion, No Pedal Edema, Normal Capillary Refill Neurological: Alert, Oriented, CN II-XII Intact, Normal Cognition, No Motor/Sensory Deficits Psychiatric: Flat Affect Skin Exam: Warm, Dry, Intact, Normal Color, No Rash Course - Vital Signs Last Recorded V/S: Last Vital Signs Temp 36.8 C 03/01/20 19:39 Pulse 112 H 03/01/20 19:39 Resp 20 03/01/20 19:39 BP 117/81 03/01/20 19:39 Pulse Ox 97 03/01/20 19:39 Orthostatic Blood Pressure [ 133/39 Standing] Orthostatic Blood Pressure [ 154/70 Supine] - Orders/Labs/Meds Orders: Active Orders 24 hr Category Date Time Status CORONAVIRUS COVID-19 PCR PHL Routine Lab 03/01/20 20:03 Received Labs: Laboratory Tests 03/01/20 03/01/20 03/01/20 Range/Units 20:30 20:30 20:35 WBC 9.92 (3.98-10.04) K/mm3 RBC 5.25 H (3.98-5.22) M/mm3 Hgb 13.8 (11.2-15.7) gm/dl Hct 42.8 (34.1-44.9) % MCV 81.5 (79.4-94.8) fl MCH 26.3 (25.6-32.2) pg MCHC 32.2 (32.2-35.5) g/dl RDW Std Deviation 44.4 (36.4-46.3) fL Plt Count 407 H (182-369) K/mm3 MPV 8.6 L (9.4-12.3) fl Neutrophils % (Manual) 64 H (40-60) % Band Neutrophils % 0 (0-10) % Lymphocytes % (Manual) 27 (20-40) % Atypical Lymphs % 0 % Monocytes % (Manual) 9 (2-10) % Eosinophils % (Manual) 0 L (0.7-5.8) % Basophils % (Manual) 0 L (0.1-1.2) Platelet Estimate Adequate RBC Morph Comment Normal Sodium 138 (136-145) mEq/L Potassium 3.1 L (3.5-5.1) mEq/L Chloride 101 (98-107) mEq/L Carbon Dioxide 26 (21-32) mEq/L Anion Gap 14.1 (5-15) BUN 12 (7-18) mg/dL Creatinine 1.3 H (0.55-1.02) mg/dL Est Cr Clr Drug Dosing 63.72 mL/min Estimated GFR (MDRD) 47 (>60) mL/min BUN/Creatinine Ratio 9.2 L (14-18) Glucose 103 (74-106) mg/dL Calcium 9.6 (8.5-10.1) mg/dL Phosphorus 3.1 (2.6-4.7) mg/dL Magnesium 2.0 (1.8-2.4) mg/dl Total Bilirubin 0.6 (0.2-1.0) mg/dL AST 17 (15-37) U/L ALT 32 (14-59) U/L Alkaline Phosphatase 113 (46-116) U/L Creatine Kinase 187 (26-192) U/L Total Protein 7.6 (6.4-8.2) g/dl Albumin 3.9 (3.4-5.0) g/dl Globulin 3.7 gm/dL Albumin/Globulin Ratio 1.1 (1-2) Urine Opiates Screen Negative (JNPKNI=649) Ur Buprenorphine Scrn Negative (CUTOFF=10) Ur Oxycodone Screen Negative (KSP8GD=390) Urine Methadone Screen Negative (YPSVPE=578) Ur Propoxyphene Screen Negative (RQXNJP=313) Ur Barbiturates Screen Negative (KUPHJF=063) Ur Tricyclics Screen Presumptive positive H (QRZALI=207) Ur Phencyclidine Scrn Negative (CUTOFF=25) Ur Amphetamine Screen Negative (AEARCB=729) U Methamphetamines Scrn Negative (QOXNBP=264) U Benzodiazepines Scrn Presumptive positive H (XYEWES=476) U Cocaine Metab Screen Negative (QOFAIJ=819) U Marijuana (THC) Screen Negative (CUTOFF=50) Ethyl Alcohol 0.00 (0.00) gm% Meds: Medications Discontinued Medications Generic Name Dose Route Start Last Admin Trade Name Freq PRN Reason Stop Dose Admin Sodium Chloride 1,000 mls @ 999 mls/hr 03/01/20 20:59 03/01/20 21:11 Normal Saline IV 03/01/20 21:59 999 mls/hr ONETIME ONE Administration Sodium Chloride 1,000 mls @ 999 mls/hr 03/01/20 22:19 03/01/20 22:30 Normal Saline IV 03/01/20 23:19 999 mls/hr ONETIME ONE Administration Potassium Chloride 20 meq 03/01/20 21:30 03/01/20 21:53 Klor-Con M20 PO 03/01/20 21:31 20 meq ONETIME ONE Administration - Re-Assessments/Exams Free Text/Narrative Re-Assessment/Exam: 03/01/20 20:02 As above, the patient states that she "spaced out" for about 5 minutes, twice tonight, about 5 minutes apart, while watching television. She states that she was simply staring forward, but did not realize that her boyfriend was wiggling her, and telling her to come around. She did not bite her tongue or suffer incontinence of bowel or bladder. The patient is on a number of psychiatric medications, I suspect that what ever happened to her earlier tonight is a side effect of one or more of them. My suspicion for an actual seizure is low, however, I have ordered a work-up that includes blood work, a urine drug screen, orthostatics, and a swab for the SARS-CoV-2 virus. 03/01/20 21:00 The patient is orthostatic. I have ordered a 1 L bolus of NS, to be followed by repeat orthostatics. 03/01/20 21:30 The patient's CBC is remarkable for thrombocytosis of 407,000, with the remainder of her CBC being unremarkable. Her CMP is remarkable for a potassium modestly depressed at 3.1, and a Cr slightly elevated at 1.3, with a BUN normal at 12, and the remainder of her CMP being unremarkable. Her magnesium level is within normal limits at 2.0. Her phosphorus level is within normal limits at 3.1. Her CPK is within normal limits at 187. Her EtOH level is 0.00. Her urine drug screen is positive for both tricyclic antidepressants and benzodiazepines, with the remainder of the urine drug screen being negative. Quetiapine is known to cause a false positive tricyclic antidepressants in urine drug screens. Benzodiazepines are not on the patient's medication list. 03/01/20 21:34 I went to the patient's room to discuss her test results thus far. I found her staring up at the ceiling with her head subtly shaking back and forth, her eyes about half open, staring forward. I asked her how she was doing, and she did not respond to me. I then tapped her on her arm, and she then startled and looked at me. No postictal activity, and we were able to hold a conversation. She acknowledged that she is not prescribed any benzodiazepines, and denies taking any recently. I suspect that the activities that I witnessed is what occurred at home. Tatyana use she was able to startle out of it with my tapping her arm, it is clearly not an epileptic seizure. They may be pseudoseizures. Additionally, if the patient had suffered an epileptic seizure, while not definitive, one would expect her WBC count, blood glucose, and CPK to be elevated, none of which is the case today. 03/01/20 22:21 Following 1 L of IV fluid, the patient is still orthostatic. I have ordered a second liter of NS, to be followed by repeat orthostatics. 03/01/20 22:55 Notified by Elma BONNER that she witnessed the patient doing the same thing that I had seen, also startled out of it. 03/02/20 00:08 Following a second liter of IV fluid, the patient is still orthostatic. 03/02/20 00:40 Notified that the patient would like to go home. Test results discussed with the patient. I explained that despite 2 L of IV fluid, she is still orthostatic. I explained that, ordinarily, orthostasis is due to intravascular depletion, but that in her case, it is more likely due to a side effect of one of her medications, perhaps clozapine, preventing her blood vessels from constricting when she stands up. If she is symptomatic from that, she should probably be switched to a different medication, however, if she is asymptomatic, then there is no need for concern. I explained to the patient that we have no evidence that the staring episodes that she experienced at home and that we witnessed here in the ED are due to epileptic seizures and I explained that that conclusion is based on not only her history and what we witnessed, but also from her negative lab work-up. The patient stated her Mom told her that she is very concerned that she is having seizures, and is therefore going to take her to [place] right away. Departure - Departure Time of Disposition: 00:43 Disposition: Home, Self-Care 01 Condition: Good Clinical Impression: Hypokalemia, Pseudoseizures, Mild renal insufficiency, Orthostasis - Discharge Information *PRESCRIPTION DRUG MONITORING PROGRAM REVIEWED*: Not Applicable *COPY OF PRESCRIPTION DRUG MONITORING REPORT IN PATIENT JENNIFER: Not Applicable Instructions: Orthostatic Hypotension, Hypokalemia Referrals: Angie Gleason NP [Ordering Only Provider] - Felecia Sue MD [Ordering Only Provider] - Forms: ED Department Discharge Additional Instructions: You were seen in the emergency room after having 2 episodes of "spacing out" at home. Work-up in the ER included positional blood pressure checks, blood work, a urine drug screen, and a swab for the SARS-CoV-2 virus. Your blood work found your potassium to be mildly depressed at 3.1. You were given oral potassium replacement in the ER. Your urine drug screen found benzodiazepines, which are not on your prescription medication list. Your kidney function was found to be slightly impaired. Your blood pressure dropped excessively between lying and standing, condition known as orthostasis. You were given 2 L of IV fluid in the ER, but you remained orthostatic. As discussed, ordinarily, that is due to being intravascularly depleted, however, in your case, your orthostasis is most likely due to to a side effect of one of your medications, such as clozapine, preventing your blood vessels from squeezing when you stand up. If you do not become lightheaded when you stand up, then no further action is necessary, however, if you become lightheaded when you stand up, we recommend that you follow-up with your Psychiatrist, Dr. Felecia Sue, to discuss swit josé your clozapine to a different medication. During your ER visit, both your Emergency Physician and nurse witnessed separate episodes of your staring. These episodes were terminated by touching you. These episodes are NOT epileptic seizures. Additionally, your blood work did not find an elevated WBC count, elevated blood glucose, or elevated CPK, that would be expected if you had suffered epileptic seizures. Based on your history, physical exam, and ER tests, these staring episodes are most likely pseudoseizures. If you want further evaluation of these staring episodes, we recommend that you follow-up with a Neurologist, to arrange for an EEG. If any other problems, please do not hesitate to return to the ER. Sepsis Event Note (ED) - Evaluation Sepsis Screening Result: No Definite Risk - Focused Exam Vital Signs: Vital Signs Temp Pulse Resp BP Pulse Ox 03/01/20 19:39 36.8 C 112 H 20 117/81 97 - My Orders Last 24 Hours: My Active Orders 03/01/20 20:03 CORONAVIRUS COVID-19 PCR PHL Routine - Assessment/Plan Last 24 Hours: My Active Orders 03/01/20 20:03 CORONAVIRUS COVID-19 PCR PHL Routine
[2020-03-01] MEDS ORDERED: Sodium Chloride 0.9% 1,000 ML IV ONE ×2 (20:59→22:19)
[2020-03-01] MEDS ORDERED: Potassium Chloride 20 MEQ Tab.ER PO ONE (21:30)
== END 2020-03-02 01:00 | disposition home or self-care (01) ==
LOC: JD.ED 19:26
DX: R56.9 Unspecified convulsions (principal); N28.9 Disorder of kidney and ureter, unspecified; E87.6 Hypokalemia; F31.9 Bipolar disorder, unspecified; F41.9 Anxiety disorder, unspecified; I10 Essential (primary) hypertension; E03.9 Hypothyroidism, unspecified; E66.9 Obesity, unspecified; Z68.43 Body mass index [BMI] 50.0-59.9, adult; Z88.1 Allergy status to other antibiotic agents; Z88.2 Allergy status to sulfonamides; Z88.8 Allergy status to other drugs, medicaments and biological substances; Z79.899 Other long term (current) drug therapy; Z87.891 Personal history of nicotine dependence; Z20.828 Contact with and (suspected) exposure to other viral communicable diseases
CPT/HCPCS: 36415; 80053; 80306; 80307; 82550; 83735; 84100; 85007; 85027; 96360; 96361; 99284; A9270; J7030; U0002; 99283

== ENCOUNTER 2020-04-14 18:18 | Emergency (ER) | payer MEDICARE, MEDICAID ==
[2020-04-14 18:36] VITALS: BP 136/81; PULSE 114
[2020-04-14] MEDS ORDERED: Sodium Chloride 0.9% 1,000 ML IV SCH (19:15)
--- NOTE | 2020-04-14 19:24 | EDM.PDOCBH ---
ED HPI GENERAL MEDICAL PROBLEM - General Chief Complaint: Behavioral/Psych Stated Complaint: SUICIDAL THOUGHTS Time Seen by Provider: 04/14/20 18:39 Source of Information: Reports: Patient History Limitations: Reports: No Limitations - History of Present Illness INITIAL COMMENTS - FREE TEXT/NARRATIVE: Ms. Mccormick is a 34-year-old woman with a past medical history sign ificant for anxiety, depression, and bipolar affective disorder type I, who is now brought to the ED by her mother after taking an intentional overdose of her prescribed medications in an attempt to commit suicide around 19:00 tonight. She states that she took 1 extra tablet of each of her medications including amlodipine, losartan, hydrochlorothiazide, famotidine, pantoprazole, fluoxetine, lamotrigine, quetiapine, levothyroxine, and Metformin. She denies taking any other medications or alcohol. She states that the decision to commit suicide was spur of the moment, and not planned. She denies saving any pills up in advance. She is unable to say what precipitated the decision tonight. She states that she has attempted suicide previously, in 2004. The patient states that after she took the pills, she called her mother, around 19:15, telling her of what she did. Her mother then came and got her, and brought her here. Of interest, the patient brought her packed belongings. Here in the ED, the patient was initially found to be mildly tachycardic at 114 bpm and slightly tachypneic at 22 rpm. She is otherwise hemodynamically stable, afebrile, saturating 95% on room air. Other than tonight's event, the patient denies having a recent fever, chills, sore throat, ear pain, nasal or sinus congestion, cough, dyspnea, chest pain, palpitations, nausea, vomiting, constipation, diarrhea, abdominal pain, urinary symptoms, recent weight gain or weight loss, recent bloody bowel movements or black bowel movements, recent joint aches, headaches, or rashes. The patient's PCP is Angie Gleason NP. Her Psychiatrist is Dr. Felecia Castro. Her Psychologist is Pepper Juarez, PhD. The patient states that she did receive an influenza vaccine this season. - Related Data Allergies Allergy/AdvReac Type Severity Reaction Status Date / Time cephalexin monohydrate Allergy Severe Rash Verified 04/14/20 18:35 [From Keflex] doxycycline Allergy Severe Rash Verified 04/14/20 18:35 levofloxacin [From Levaquin] Allergy Severe Rash Verified 04/14/20 18:35 metronidazole [From Flagyl] Allergy Severe Rash Verified 04/14/20 18:35 sulfamethoxazole Allergy Severe Rash Verified 04/14/20 18:35 [From Septra] trimethoprim [From Septra] Allergy Severe Rash Verified 04/14/20 18:35 lithium AdvReac Severe Nausea and Verified 04/14/20 18:35 Vomiting Home Meds: Home Meds FLUoxetine HCl [Prozac] 40 mg PO DAILY 04/14/20 [History] Lactobacillus Acidophilus [Probiotic Acidophilus] 1 tab PO DAILY 04/14/20 [History] Losartan [Cozaar] 50 mg PO DAILY 04/14/20 [History] Pantoprazole [ProTONIX] 40 mg PO DAILY 04/14/20 [History] amLODIPine Besylate [Amlodipine Besylate] 10 mg PO DAILY 04/14/20 [History] cloZAPine 250 mg PO DAILY 04/14/20 [History] hydroCHLOROthiazide [Hydrochlorothiazide] 25 mg PO DAILY 04/14/20 [History] lamoTRIgine 200 mg PO DAILY 04/14/20 [History] lamoTRIgine [Lamotrigine] 25 mg PO DAILY 04/14/20 [History] lamoTRIgine [Lamotrigine] 150 mg PO DAILY 04/14/20 [History] metFORMIN [Glucophage] 500 mg PO BIDMEALS 04/14/20 [History] Past Medical History HEENT History: Reports: Impaired Vision Cardiovascular History: Reports: Hypertension Respiratory History: Reports: Sleep Apnea (nightly CPAP 10) Gastrointestinal History: Reports: GERD Musculoskeletal History: Reports: Arthritis Neurological History: Reports: Other (See Below) (Intellectually delayed) Psychiatric History: Reports: Anxiety, Bipolar (type I), Depression, Suicide Attempt Endocrine/Metabolic History: Reports: Hypothyroidism (following thyroidectomy), Obesity/BMI 30+, Other (See Below) (Prediabetes) - Past Surgical History HEENT Surgical History: Reports: Oral Surgery (dental extractions), Tonsillectomy GI Surgical History: Reports: Cholecystectomy (Jul 2017) Endocrine Surgical History: Reports: Thyroidectomy (due to benign umor) Social & Family History - Family History Family Medical History: Noncontributory - Tobacco Use Tobacco Use Status *Q: Former Tobacco User Years of Tobacco use: 5 Packs/Tins Daily: 1 Month/Year Tobacco Last Used: Quit 2009 Second Hand Smoke Exposure: No - Caffeine Use Caffeine Use: Reports: None Other Caffeine Use: drinks 2 liters of soda a day - Alcohol Use Alcohol Use History: Yes Date/Time of Last Drink Comment: Sober x 2014 - Recreational Drug Use Recreational Drug Use: No - Living Situation & Occupation Living situation: Reports: Single, Alone Occupation: Unemployed ED ROS GENERAL - Review of Systems Review Of Systems: Comprehensive ROS is negative, except as noted in HPI. ED EXAM, BEHAVIORAL HEALTH - Physical Exam Exam: See Below Exam Limited By: No Limitations General Appearance: Alert, WD/WN, No Apparent Distress Eye Exam: Bilateral Eye: EOMI, Normal Inspection Ears: Normal External Exam, Hearing Grossly Normal Nose: Normal Inspection Throat/Mouth: Normal Inspection, Normal Lips, Normal Voice, No Airway Compromise Head: Atraumatic, Normocephalic Neck: Normal Inspection, Full Range of Motion Respiratory/Chest: No Respiratory Distress, Lungs Clear, Normal Breath Sounds, No Accessory Muscle Use Cardiovascular: Normal Peripheral Pulses, Regular Rate, Rhythm, No Gallop, No JVD, No Murmur, No Rub GI/Abdominal: Normal Bowel Sounds, Soft, Non-Tender, No Organomegaly, No Distention, No Abnormal Bruit, No Mass Back Exam: Normal Inspection, Full Range of Motion, NT Extremities: Normal Inspection, Normal Range of Motion, Normal Capillary Refill Neurological: Alert, Normal Cognition, No Motor/Sensory Deficits, Oriented x 3 Psychiatric: Flat Affect Skin Exam: Warm, Dry, Intact, Normal color, No rash #1 Interpretation EKG Date: 04/14/20 Time: 19:48 Rhythm: NSR Rate (Beats/Min): 97 [place]: Normal P-Wave: Present QRS: Wide (Nonspecific intraventricular conduction delay) ST-T: Normal QT: Prolonged (QTc 482 ms) Comparison: Change From Previous EKG (QTc was WNL on 08/10/2019) COURSE, BEHAVIORAL HEALTH COMP - Course Vital Signs: Last Vital Signs Temp 36.6 C 04/14/20 18:33 Pulse 114 H 04/14/20 18:33 Resp 22 H 04/14/20 18:33 BP 136/81 04/14/20 18:33 Pulse Ox 95 04/14/20 18:33 Orders, Labs, Meds: Laboratory Tests 04/14/20 04/14/20 04/14/20 Range/Units 19:25 19:25 19:25 WBC 7.92 (3.98-10.04) K/mm3 RBC 4.71 (3.98-5.22) M/mm3 Hgb 12.7 (11.2-15.7) gm/dl Hct 39.1 (34.1-44.9) % MCV 83.0 (79.4-94.8) fl MCH 27.0 (25.6-32.2) pg MCHC 32.5 (32.2-35.5) g/dl RDW Std Deviation 45.4 (36.4-46.3) fL Plt Count 354 (182-369) K/mm3 MPV 8.5 L (9.4-12.3) fl Neutrophils % (Manual) 65 H (40-60) % Band Neutrophils % 0 (0-10) % Lymphocytes % (Manual) 26 (20-40) % Atypical Lymphs % 0 % Monocytes % (Manual) 9 (2-10) % Eosinophils % (Manual) 0 L (0.7-5.8) % Basophils % (Manual) 0 L (0.1-1.2) Platelet Estimate Adequate Plt Morphology Comment Normal RBC Morph Comment Normal Sodium 142 (136-145) mEq/L Potassium 3.5 (3.5-5.1) mEq/L Chloride 107 (98-107) mEq/L Carbon Dioxide 25 (21-32) mEq/L Anion Gap 13.5 (5-15) BUN 11 (7-18) mg/dL Creatinine 1.0 (0.55-1.02) mg/dL Est Cr Clr Drug Dosing 79.96 mL/min Estimated GFR (MDRD) > 60 (>60) mL/min BUN/Creatinine Ratio 11.0 L (14-18) Glucose 93 (74-106) mg/dL Calcium 9.1 (8.5-10.1) mg/dL Magnesium 2.0 (1.8-2.4) mg/dl Total Bilirubin 0.5 (0.2-1.0) mg/dL AST 21 (15-37) U/L ALT 31 (14-59) U/L Alkaline Phosphatase 108 (46-116) U/L Total Protein 6.9 (6.4-8.2) g/dl Albumin 3.5 (3.4-5.0) g/dl Globulin 3.4 gm/dL Albumin/Globulin Ratio 1.0 (1-2) TSH 3rd Generation 0.405 (0.358-3.74) uIU/mL Urine HCG, Qual (NEGATIVE) Salicylates 0.3 L (2.8-20) mg/dL Urine Opiates Screen (ENBHBW=830) Ur Buprenorphine Scrn (CUTOFF=10) Ur Oxycodone Screen (TJW5XY=100) Urine Methadone Screen (AFWOLA=787) Ur Propoxyphene Screen (DZZLYN=682) Acetaminophen 0 L (10-30) ug/mL Ur Barbiturates Screen (SWQZZH=373) Ur Tricyclics Screen (QKPOHG=789) Ur Phencyclidine Scrn (CUTOFF=25) Ur Amphetamine Screen (ILBJOS=261) U Methamphetamines Scrn (AFDSWP=473) U Benzodiazepines Scrn (LIMLWM=144) U Cocaine Metab Screen (LDBHTC=227) U Marijuana (THC) Screen (CUTOFF=50) Ethyl Alcohol 0.00 (0.00) gm% SARS-CoV-2 RNA (KYAW) (NEGATIVE) 04/14/20 04/14/20 04/14/20 Range/Units 20:13 21:29 21:29 WBC (3.98-10.04) K/mm3 RBC (3.98-5.22) M/mm3 Hgb (11.2-15.7) gm/dl Hct (34.1-44.9) % MCV (79.4-94.8) fl MCH (25.6-32.2) pg MCHC (32.2-35.5) g/dl RDW Std Deviation (36.4-46.3) fL Plt Count (182-369) K/mm3 MPV (9.4-12.3) fl Neutrophils % (Manual) (40-60) % Band Neutrophils % (0-10) % Lymphocytes % (Manual) (20-40) % Atypical Lymphs % % Monocytes % (Manual) (2-10) % Eosinophils % (Manual) (0.7-5.8) % Basophils % (Manual) (0.1-1.2) Platelet Estimate Plt Morphology Comment RBC Morph Comment Sodium (136-145) mEq/L Potassium (3.5-5.1) mEq/L Chloride (98-107) mEq/L Carbon Dioxide (21-32) mEq/L Anion Gap (5-15) BUN (7-18) mg/dL Creatinine (0.55-1.02) mg/dL Est Cr Clr Drug Dosing mL/min Estimated GFR (MDRD) (>60) mL/min BUN/Creatinine Ratio (14-18) Glucose (74-106) mg/dL Calcium (8.5-10.1) mg/dL Magnesium (1.8-2.4) mg/dl Total Bilirubin (0.2-1.0) mg/dL AST (15-37) U/L ALT (14-59) U/L Alkaline Phosphatase (46-116) U/L Total Protein (6.4-8.2) g/dl Albumin (3.4-5.0) g/dl Globulin gm/dL Albumin/Globulin Ratio (1-2) TSH 3rd Generation (0.358-3.74) uIU/mL Urine HCG, Qual Negative (NEGATIVE) Salicylates (2.8-20) mg/dL Urine Opiates Screen Negative (UTZRBM=574) Ur Buprenorphine Scrn Negative (CUTOFF=10) Ur Oxycodone Screen Negative (CQM9DA=440) Urine Methadone Screen Negative (FQWSCW=664) Ur Propoxyphene Screen Negative (PGETHJ=580) Acetaminophen (10-30) ug/mL Ur Barbiturates Screen Negative (CLESEH=391) Ur Tricyclics Screen Presumptive positive H (UZWTSD=859) Ur Phencyclidine Scrn Negative (CUTOFF=25) Ur Amphetamine Screen Negative (SZZEAQ=047) U Methamphetamines Scrn Negative (WMYEOZ=262) U Benzodiazepines Scrn Negative (ZCYPLH=839) U Cocaine Metab Screen Negative (GEQEMG=660) U Marijuana (THC) Screen Negative (CUTOFF=50) Ethyl Alcohol (0.00) gm% SARS-CoV-2 RNA (KYAW) Negative (NEGATIVE) Medications Discontinued Medications Generic Name Dose Route Start Last Admin Trade Name Freq PRN Reason Stop Dose Admin Acetaminophen 650 mg 04/15/20 01:17 04/15/20 01:24 Tylenol PO 04/15/20 01:18 650 mg NOW ONE Administration Sodium Chloride 1,000 mls @ 100 mls/hr 04/14/20 19:15 04/14/20 19:32 Normal Saline IV 100 mls/hr ASDIRECTED [facility] Administration Medical Clearance: 04/14/20 19:16 As above, the patient states that she attempted suicide tonight by taking an extra dose of each of her medications, including amlodipine, losartan, hydrochlorothiazide, famotidine, pantoprazole, fluoxetine, lamotrigine, quetiapine, levothyroxine, and Metformin. In truth, however, I am dubious that the patient did in fact take these medications, as she tells me that her decision to take them tonight was spur of the moment, and not planned ahead of time, and that she did not save up any pills to take in excess, yet on the pill count, the triage nurse did not find any pills missing from her prescription bottles. She is not able to indicate any particular event that prompted her to consider suicide tonight. Additionally, the patient called her mother within 15 minutes of taking the pills, fully knowing that her mother would bring her to the ED for evaluation and treatment, and lastly, the patient packed a bag of her belongings. These are not the actions of a genuine suicide attempt. Nevertheless, I have ordered a standard psychiatric medical clearance panel, including a swab to test for the SARS-CoV-2 virus. In the meantime, the patient will be given IV fluid. I have asked the patient's nurse to collect all of the patient's belongings, in order to make it very difficult for the patient to get very far if she decides to elope the ED. 04/14/20 21:33 The patient's CBC is unremarkable. Her CMP is unremarkable. Her magnesium level is within normal limits at 2.0. Her TSH is within normal limits at 0.405. Her salicylate level is within normal limits at 0.3. Her acetaminophen level is 0. Her EtOH level is 0.00. Her swab for the SARS-CoV-2 virus is negative. The patient has not yet provided a urine sample for the urine drug screen and urine test. 04/14/20 22:04 The patient's urine drug screen is positive for tricyclic antidepressants, and is otherwise negative. Her urine test is negative. Quetiapine is known to cause urine drug screens to result false positive for tricyclic antidepressants. 04/14/20 23:10 Case discussed with Kirill at [facility] at 22:43. Case then discussed with Dr. Galdamez, Psychiatrist at [facility], at 22:49. She agreed that it is unlikely that the patient actually took an excess dose of her medications, and even if she did, it is a nonfatal dose. She feels that the patient is here for behavioral purposes, however, because the patient is still stating that she is actively suicidal, she agreed to accept the patient. Reviewing prior records, she noted that they have seen the patient in the past. The patient likely has a personality disorder. They noted that the patient's mother is her guardian, therefore the patient's mother would need to agree for the patient to go, and Kirill pointed out that [facility]'s ED is currently on diversion, therefore the patient's mother cannot physically bring the patient, rather, the patient will need to be brought by the [facility]'s department, which would mean that the patient would need to be placed under a 24-hour hold. We will need to fax the 24-hour hold paperwork for approval prior to transfer. Case then discussed with Chelita Gay, the patient's mother and guardian, at 23:05. She agreed for the patient to be transferred. 04/15/20 07:56 The patient is vomiting, and I was going to get her some Zofran, but she was seen sticking her finger down her throat, forcing herself to vomit. Departure - Departure Time of Disposition: 23:14 Disposition: DC/Tfer to Psych Hosp/Unit 65 Condition: Good Clinical Impression: Suicidal ideation - Discharge Information *PRESCRIPTION DRUG MONITORING PROGRAM REVIEWED*: Not Applicable *COPY OF PRESCRIPTION DRUG MONITORING REPORT IN PATIENT JENNIFER: Not Applicable Referrals: Angie Gleason NP [Primary Care Provider] - Forms: ED Department Discharge Sepsis Event Note (ED) - Evaluation Sepsis Screening Result: No Definite Risk
[2020-04-14 20:11] LABS: ACETAMINOPHEN 0 ug/mL (10-30)
[2020-04-15] MEDS ORDERED: Acetaminophen 325 MG Tab PO ONE (01:17)
== END 2020-04-15 10:15 ==
LOC: JD.ED 18:18
DX: F32.9 Major depressive disorder, single episode, unspecified (principal); I10 Essential (primary) hypertension; K21.9 Gastro-esophageal reflux disease without esophagitis; F41.9 Anxiety disorder, unspecified; E66.9 Obesity, unspecified; Z68.43 Body mass index [BMI] 50.0-59.9, adult; Z87.891 Personal history of nicotine dependence; Z88.1 Allergy status to other antibiotic agents; Z88.8 Allergy status to other drugs, medicaments and biological substances; Z88.2 Allergy status to sulfonamides; Z79.899 Other long term (current) drug therapy; Z20.828 Contact with and (suspected) exposure to other viral communicable diseases
CPT/HCPCS: 36415; 80053; 80306; 80307; 81025; 83735; 84443; 85007; 85027; 93005; 99285; A9270; J7030; U0002; 93010

== ENCOUNTER 2021-03-01 21:05 | Emergency (ER) | payer MEDICARE, MEDICAID ==
[2021-03-01 21:42] VITALS: BP 134/85; PULSE 92
--- NOTE | 2021-03-01 22:24 | EDM.PDOC ---
ED HPI GENERAL MEDICAL PROBLEM - General Chief Complaint: General Stated Complaint: TORE FINGER NAIL OFF Time Seen by Provider: 03/01/21 21:23 Source of Information: Reports: Patient History Limitations: Reports: No Limitations - History of Present Illness INITIAL COMMENTS - FREE TEXT/NARRATIVE: The patient presents with a right finger injury. She has acrylic nails and she was reaching down to fix something on her shoe and she caught her finger nail of her right index finger. The nail nearly came off. She has no other injuries. Onset: Sudden Duration: Minutes: Location: Reports: Upper Extremity, Right (index finger) Quality: Reports: Sharp Severity: Mild Improves with: Reports: None Worsens with: Reports: None Associated Symptoms: Reports: No Other Symptoms Right Finger-Index Pain Score (Numeric/FACES): 10 - Related Data Allergies Allergy/AdvReac Type Severity Reaction Status Date / Time cephalexin monohydrate Allergy Severe Rash Verified 04/14/20 18:35 [From Keflex] doxycycline Allergy Severe Rash Verified 04/14/20 18:35 levofloxacin [From Levaquin] Allergy Severe Rash Verified 04/14/20 18:35 metronidazole [From Flagyl] Allergy Severe Rash Verified 04/14/20 18:35 sulfamethoxazole Allergy Severe Rash Verified 04/14/20 18:35 [From Septra] trimethoprim [From Septra] Allergy Severe Rash Verified 04/14/20 18:35 lithium AdvReac Severe Nausea and Verified 04/14/20 18:35 Vomiting Home Meds: Home Meds FLUoxetine HCl [Prozac] 40 mg PO DAILY 04/14/20 [History] Lactobacillus Acidophilus [Probiotic Acidophilus] 1 tab PO DAILY 04/14/20 [History] Losartan [Cozaar] 50 mg PO BEDTIME 04/14/20 [History] Pantoprazole [ProTONIX] 40 mg PO BID 04/14/20 [History] amLODIPine Besylate [Amlodipine Besylate] 10 mg PO BEDTIME 04/14/20 [History] cloZAPine 250 mg PO BEDTIME 04/14/20 [History] hydroCHLOROthiazide [Hydrochlorothiazide] 25 mg PO DAILY 04/14/20 [History] lamoTRIgine 200 mg PO BEDTIME 04/14/20 [History] lamoTRIgine [Lamotrigine] 25 mg PO DAILY 04/14/20 [History] lamoTRIgine [Lamotrigine] 150 mg PO DAILY 04/14/20 [History] metFORMIN [Glucophage] 500 mg PO BIDMEALS 04/14/20 [History] QUEtiapine Fumarate [Seroquel] 50 mg PO DAILY 03/01/21 [History] Past Medical History HEENT History: Reports: Impaired Vision Cardiovascular History: Reports: Hypertension Respiratory History: Reports: Sleep Apnea Gastrointestinal History: Reports: GERD Genitourinary History: Reports: None LABORATORY OPERATIONS COORDINATOR History: Reports: None Other LABORATORY OPERATIONS COORDINATOR History: on the Depo shot Musculoskeletal History: Reports: Arthritis Neurological History: Reports: Other (See Below) Psychiatric History: Reports: Anxiety, Bipolar, Depression, Suicide Attempt Endocrine/Metabolic History: Reports: Hypothyroidism, Obesity/BMI 30+, Other (See Below) Hematologic History: Reports: Anemia Other Hematologic History: elevated right WBC Immunologic History: Reports: None Oncologic (Cancer) History: Reports: Other (See Below) Other Oncologic History: facial Dermatologic History: Reports: None - Infectious Disease History Infectious Disease History: Reports: None - Past Surgical History HEENT Surgical History: Reports: Oral Surgery, Tonsillectomy GI Surgical History: Reports: Cholecystectomy Endocrine Surgical History: Reports: Thyroidectomy Social & Family History - Family History Family Medical History: No Pertinent Family History - Tobacco Use Tobacco Use Status *Q: Former Tobacco User Used Tobacco, but Quit: Yes Month/Year Tobacco Last Used: 10 yrs - Caffeine Use Caffeine Use: Reports: Coffee, Soda Other Caffeine Use: drinks 2 liters of soda a day - Recreational Drug Use Recreational Drug Use: No - Living Situation & Occupation Living situation: Reports: Single, Alone Occupation: Unemployed ED ROS GENERAL - Review of Systems Review Of Systems: See Below Constitutional: Reports: No Symptoms HEENT: Reports: No Symptoms Respiratory: Reports: No Symptoms Cardiovascular: Reports: No Symptoms Endocrine: Reports: No Symptoms GI/Abdominal: Reports: No Symptoms : Reports: No Symptoms Musculoskeletal: Reports: No Symptoms ED EXAM, GENERAL - Physical Exam Exam: See Below Exam Limited By: No Limitations General Appearance: Alert, No Apparent Distress Ears: Normal External Exam Nose: Normal Inspection Head: Atraumatic, Normocephalic Neck: Normal Inspection Respiratory/Chest: No Respiratory Distress Extremities: Other (Right index finger is movable but still attached. There is a small abrasion to the tip of the finger.) Course - Vital Signs Last Recorded V/S: Last Vital Signs Temp 97.8 F 03/01/21 21:36 Pulse 92 03/01/21 21:36 Resp 20 03/01/21 21:36 BP 134/85 03/01/21 21:36 Pulse Ox 98 03/01/21 21:36 - Re-Assessments/Exams Free Text/Narrative Re-Assessment/Exam: 03/01/21 22:22 I cut the finger nail down and put a splint to protect it. Departure - Departure Time of Disposition: 22:30 Disposition: Home, Self-Care 01 Condition: Good Clinical Impression: Injury of nail bed of finger of right hand Qualifiers: Encounter type: initial encounter Qualified Code(s): S69.91XA - Unspecified injury of right wrist, hand and finger(s), initial encounter - Discharge Information *PRESCRIPTION DRUG MONITORING PROGRAM REVIEWED*: Not Applicable *COPY OF PRESCRIPTION DRUG MONITORING REPORT IN PATIENT JENNIFER: Not Applicable Referrals: Angie Gleason NP [Primary Care Provider] - 1 Week Additional Instructions: Soak your finger in warm soapy water 2 times per day and apply antibiotic ointment after. Follow up with your provider within a week. Sepsis Event Note (ED) - Focused Exam Vital Signs: Vital Signs Temp Pulse Resp BP Pulse Ox 03/01/21 21:36 97.8 F 92 20 134/85 98
== END 2021-03-01 22:30 | disposition home or self-care (01) ==
LOC: JD.ED 21:05
DX: S60.410A Abrasion of right index finger, initial encounter (principal); I10 Essential (primary) hypertension; K21.9 Gastro-esophageal reflux disease without esophagitis; E03.9 Hypothyroidism, unspecified; E66.9 Obesity, unspecified; Z68.43 Body mass index [BMI] 50.0-59.9, adult; Z88.1 Allergy status to other antibiotic agents; Z88.2 Allergy status to sulfonamides; Z88.8 Allergy status to other drugs, medicaments and biological substances; Z79.899 Other long term (current) drug therapy; Z87.891 Personal history of nicotine dependence; W23.0XXA Caught, crushed, jammed, or pinched between moving objects, initial encounter
CPT/HCPCS: 99282; 99283